=== PATIENT | female | born 1985 | race Caucasian/White ===

== ENCOUNTER 2017-09-07 17:30 | Outpatient (RCR) | payer MEDICAID, SELFPAY ==
--- NOTE | 2017-08-01 14:15 | HP.PTEVAL_ITS ---
Patient's Visit Information GALINA ALCANTAR is a 32 year old F referred to Physical Therapy by Priscilla Mcdonald DPM with a diagnosis of L foot sinus tarsitis, sesmoid injury. Date of Evaluation: 07/28/17 Physical Therapist: Kraig Chiu - Visit Plan Frequency: 2-3x /Week Duration: 6-8 weeks Plan: Start with L ankle strengthening, L ankle ROM/stretching, proprioception exercises. May use US/IFC to modulate pain. - Subjective Subjective: Pt. is here today for her initial evaluation with diagnosis of L foot sinus tarsitis, sesmoid injury and has a history of a hereditary neuropathy disorder. She is a plesant 32 y.o. female who reports having chornic L ankle pain for the past 10+ years. Her symptoms have worse of the last 3-4 years. She is to the point where walking short community distances are causing extreme pain. She reports having pain in both legs, but her L is worse. Pain is indidcated at medial aspect of L ankle and foot and it travels over the anterior aspect of her ankle. Pt. reports decreased sensation throughout bilateral LEs and UEs. Increased pain: walking, standing, all WBing activities. Decreases pain: unloading, rest, and OTC meds. She does reports Once I over do it, I am done for the rest of the day. 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 Pt. reports pain is a burning, tingling pain, but can become sharp. Pt. reports no mechanism of injury, but has had symptoms since being in the . She is limited to walking for brief periods of time secondary to pain , and has difficulty with stairs. Her physician recommended that she get a gauntlet brace for increased ankle stability. Pt. has yet to be fitted. Pt. is hopeful to reduce symptoms in order to get back to all recreatonal activities and taking care of her children with increased tolerance. - Pain L foot/ankle Pain Intensity (Out of 10): 4 Pain Intensity Range: 2, 8 - Objective POSTURE: Pt. has increased pronation during stance phase of bilateral LEs, worsen with increased wt. shifting bilaterally. Pt. has slight increased in bilateral knee valgus positioning as well. PALPATION: Pt. has increased pain with palaption of L navicular, L sesmoid, L 1st metatarsal. Pt. has high level of sensitivity to 1st metatarsal head. Incision from previous bunionectomy. She also has increased callusing at plantar side of 1st met head. Consistent with medial wearing of footwear, L worse than R. NEUROLOGICAL: decreased sensation to light and sharp touch throughout feet to ~2 inches above bilateral malleolei. Pt. reports I was able to walk on glass and not really know it. Pt. has 2+ achilles and patellar DTR bilaterally. Pt. is able to rise on heels and toes without issues or LOB. No visible weakness noted. ROM: L ankle- DF 12deg, PF 45deg, EVR 13deg, INV 18deg. R ankle DF 14deg, PF 49deg, EVR 14deg, INV 18deg. Pt. has normal ROM of bilateral knees and hips no increase in leo noted. MMT- RLE- ankle- DF 4+/5, PF 4+/5, INV 4+/5, EVR 4+/5. Knee- ext 5-/5, flexion 5-/5. HIp- flexion- 4+/5, abd 4/5, ext 4+/5. LLE- ankle 4/5 throughout ; knee- ext 4+/5, flexon 4+/5; hip- flexion 4+/5, abd 4/5, ext 4+/5. Core strength- poor. GAIT: Pt. has increased L pes planus during stance phase. She has increased pronation during heel off and preswing phase. Pt. has normal heel strike. Antalgic pattern noted during L stance phase. No AD needed. Pt. has visible instability noted during L stance phase, 18sec during R single leg stance with increased ankle/hip stratagies to attempt to maintain stability. - Goals Goal 1:: Pt. to be I with HEP. Goal Time Frame: 6-8 Weeks Goal 2:: Pt. to have increased L ankle ROM symmetrical to R side to reduce abnormal stresses to foot with functional mobility. Goal Time Frame: 4-6 Weeks Goal 3:: Pt. to have increased strength of L ankle/foot by 1/2 grade of all effected musculature to increase ankle stability. Goal Time Frame: 6-8 Weeks Goal 4:: Pt. to ambulate 2000ft. with 0-1/10 pain allowing for increased toelrance to all community activities includiong grocery shopping. Goal Time Frame: 6-8 Weeks Goal 5:: Pt. to negotiate steps with 1 HR with reciprocal pattern witho 0-1/10 pain in L ankle allowing for increased mobility in home. Goal Time Frame: 4-6 Weeks - Rehabilitation Potential Physical Therapy Diagnosis: Pt. has signs and symptoms consistent with L foot sinus tarsitis, sesmoid injury. She has increased pes planus during L stance phase, she is over loading her 1st metatarsal head during stance phase and heel off phase of gait. She would benefit from PT to increase L ankle mobility, strength and stability in stance to reduce stress applied to medial aspect of her foot during all functional mobility. Rehabilitation Potential: Fair - Anticipated Interventions Patient/Client Instruction: Educate patient on: Condition, Plan of Care, Risk Factors, Benefits of Fitness Program For the Purpose of:: To improve safety, To improve health and function, To foster healthy habits, To improve decision making, To facilitate caregiver knowledge, To improve self management, To prevent re-injury, To improve ability to perform tasks related to life management, To improve tolerance to ADL's Therapeutic Exercise to Include: Strength training, Power training, Endurance training, Balance training, Postural training, Flexibilty training, Gait and locomotor training, Passive ROM, Active ROM For the Purpose of:: To decrease pain, To decrease swelling/inflammation, To increase ROM, To improve nutrient delivery to tissue, To increase oxygenation perfusion, To improve muscle performance and motor function, To increase tolerance to activity/condition/position, To improve performance and independence with ADL's, To decrease level of supervision to perform tasks, To improve ability of physical actions for home/community/work/leisure, To improve gait and locomotor functions, To improve health of tissue, To decrease soft tissue restriction, To increase flexibility/ROM Manual Therapy Techniques to Include: Mobilization, Manipulation, Passive ROM, Functional dry needling For the Purpose of:: To decrease pain, To increase ROM, To improve nutrient delivery to tissue, To increase oxygenation perfusion, To improve muscle performance and motor function, To improve ability to perform ADL's IF ES: Yes Ultrasound (thermal/non thermal): Yes For the Purpose of:: To decrease pain, To decrease swelling/inflammation, To increase ROM, To improve nutrient delivery to tissue Thank you for the opportunity to evaluate your patient. For Medicare and Medicare HMO plans, please review the plan of care and approve it. It will need to be FAXED BACK to us at [phone] for Medicare purposes. Please let me know if there are questions or concerns regarding this plan of care. Physician Signature: Date:
--- NOTE | 2018-01-24 14:42 | HP.PTDCNRP_ITS ---
HP - Discharge Summary (1) - Patient Information GALINA ALCANTAR was seen in my office for initial evaluation on 07/28/17. The following Plan of Care was established for this patient: Initial Frequency: 2-3x /Week Initial Duration: 6-8 weeks - Anticipated Interventions Patient/Client Instruction: Educate patient on: Condition, Plan of Care, Risk Factors, Benefits of Fitness Program For the Purpose of:: To improve safety, To improve health and function, To foster healthy habits, To improve decision making, To facilitate caregiver knowledge, To improve self management, To prevent re-injury, To improve ability to perform tasks related to life management, To improve tolerance to ADL's Therapeutic Exercise to Include: Strength training, Power training, Endurance training, Balance training, Postural training, Flexibilty training, Gait and locomotor training, Passive ROM, Active ROM For the Purpose of:: To decrease pain, To decrease swelling/inflammation, To increase ROM, To improve nutrient delivery to tissue, To increase oxygenation perfusion, To improve muscle performance and motor function, To increase tolerance to activity/condition/position, To improve performance and independence with ADL's, To decrease level of supervision to perform tasks, To improve ability of physical actions for home/community/work/leisure, To improve gait and locomotor functions, To improve health of tissue, To decrease soft tissue restriction, To increase flexibility/ROM Manual Therapy Techniques to Include: Mobilization, Manipulation, Passive ROM, Functional dry needling For the Purpose of:: To decrease pain, To increase ROM, To improve nutrient delivery to tissue, To increase oxygenation perfusion, To improve muscle performance and motor function, To improve ability to perform ADL's IF ES: Yes Ultrasound (thermal/non thermal): Yes For the Purpose of:: To decrease pain, To decrease swelling/inflammation, To increase ROM, To improve nutrient delivery to tissue This patient was last seen in our office 09/17/18. Pertinent comments regarding their Physical therapy will appear below: Pt. was seen for her sinus tarsi. Pt. was making slight progress with modalities , stretching and strengthening. Pt. stop attendeding appointments and has not been seen in ~4 months. Pt. will be DC from PT at this point in time. At this point I will be discontinuing this patient from physical therapy. I would be happy to see this patient again in the future if found appropriate by the physician. Thank you! Kraig Chiu
== END 2017-09-07 19:00 | disposition home or self-care (01) ==
LOC: PT 17:30
PROVIDERS: Family Provider Family Medicine; PCP Family Medicine; Visit Provider Podiatrist
DX: G57.52 Tarsal tunnel syndrome, left lower limb (principal); S92.902D Unspecified fracture of left foot, subsequent encounter for fracture with routine healing; G60.9 Hereditary and idiopathic neuropathy, unspecified
CPT/HCPCS: 97035 ×3; 97110 ×4; 97162; 97022; 97140

== ENCOUNTER 2018-03-04 14:00 | Outpatient (RCR) | payer MEDICAID, SELFPAY ==
--- NOTE | 2018-03-17 16:06 | HP.PTEVAL_ITS ---
Patient's Visit Information GALINA ALCANTAR is a 32 year old F referred to Physical Therapy by Priscilla Mcdonald DPM with a diagnosis of L sinus tarsitis, LBP, HNPP. Date of Evaluation: 02/04/18 Physical Therapist: Kraig Chiu - Visit Plan Frequency: 2-3x /Week Duration: 6-8 weeks Plan: Progress velocities next. - Subjective Subjective: Pt. is here today for her initial evaluation with diagnosis of left sinus tarsitis, Hereditary neuropathy disorder and low back pain. Pt. reprots having left foot/ankle pain for many years, but is getting worse. Pt. reports increased pain in her foot with walking, standing, stairs, and all functional mobility. Decreased symptoms in her foot with non wbing, but it does not totally go away. Pt. does have a brace for her L ankle, but is not wearing today. Pt. has trialed PT previously, but did not have improved symptoms. Pt. is hopeful to trial aquatic therapy to increase gait progress, ROM, and strength to reduce symptoms. Pt. is also having LBP which started ~ 3-4 months ago with no mechanism of injury. She was planning on seeing a chiropractor for it, but has yet to start. Pt. reprots increased LBP with lifting, bending, twisting, walking, carrying her children. Pt. denies N/T down her legs. Pt. reports difficulty sleeping due to her back pain. Pt. reports nothing really decreases her back pain. Pt. is hopeful to increased LLE pain and back pain allowing for increased tolerance to all ADLs and activities. - Pain Lumbar Spine Pain Intensity (Out of 10): 6 Pain Intensity Range: 3, 7 RLE Pain Intensity (Out of 10): 6 Pain Intensity Range: 1, 4 Comment: hip L foot Pain Intensity (Out of 10): 7 Pain Intensity Range: 6, 8 - Objective POSTURE: Pt. has generalized flexed posture, pes planus bilaterally with minimal longitudinal arch height, L worse than R. Pt. has increased R lateral trunk lean in stance. PALPATION: Pt. had pain to L 1st met head, along medial longitudial arch of L foot and along post tib tendon. Pt. has increased pain at lumbar spine paraspinals and into B piriformis region. NEUROLOGICAL: Pt. has normal senation to light and sharp touch. Pt. has 2+ pedal pulse. Pt. has 2+ achilles and patellar DTR bilateraly. Pt. is able to rise on heels and toes, but reports increased pain while doing so. ROM: LUMBAR SPINE: flexion min loss increase NW, ext mod loss increase NW, SB mod loss increase NW bilat, rotation mod loss increase NW bilat. L ankle- DF 10deg, PF 38deg, INV 10deg, EVR 10deg. Pt. reports increased pain with all OP of motion of L ankle. Pt. has normal hip ROM, HS tightness bilaterally. MMT: R ankle- 5/5 throughout; L ankle 5/5 throughout; R knee- 4+/5 throughout; L knee 4+/5 throughout; R hip- 4/5 throughout; L hip 4/5 throughout. Core strength- poor. GAIT: Pt. ambulates without AD ~300ft. with antalgic pattern during L stance phase. Pt. has generalized flexed posture, L ankle EVR with increased pes planus during L stance phase, marked navicular drop during L stance phase. STAIRS: Pt. is able to negotiate with 2HR with step to pattern. Pt. reports increased LBP and L ankle pain with ascending and descending, descending is worse. - Goals Goal 1:: Pt. to be I with HEP. Goal Time Frame: 4-6 Weeks Goal 2:: Pt. to have increased BLE and core strength by 1/2 grade of all effected musculature. Goal Time Frame: 4-6 Weeks Goal 3:: Pt. to ambulate unlimited distances with 0-3/10 pain in L ankle/foot. Goal Time Frame: 4-6 Weeks Goal 4:: Pt. to ambulate unlimited distances with 0-2/10 LBP allowing for increased tolerance to community mobility. Goal Time Frame: 4-6 Weeks Goal 5:: Pt. to have increased lumbar ROM by 25% in all directions without increase in symptoms. Goal Time Frame: 4-6 Weeks - Rehabilitation Potential Physical Therapy Diagnosis: Pt. has signs and symptoms consistent with L sinus tarsitis, LBP and HNPP. Pt. reports increased pain with all WBing on LLE during gait, txs, stairs that limit her ability to complete more than grocery shopping. Pt. has increased LBP currently without mechanism of injury, without reduction with repeated motions. Pt. has marked BLE and core weakness. Pt. would benefit from Pt in aquatic setting to increase BLE strength, mobility, core strength to allow for increased tolerance to all functional mobility. Rehabilitation Potential: Fair - Anticipated Interventions Patient/Client Instruction: Educate patient on: Condition, Plan of Care, Risk Factors, Benefits of Fitness Program For the Purpose of:: To improve decision making, To facilitate caregiver knowledge, To improve self management, To prevent re-injury, To improve ability to perform tasks related to life management, To improve tolerance to ADL's Therapeutic Exercise to Include: Strength training, Power training, Endurance training, Balance training, Agility training, Body mechanics, Postural training , Flexibilty training, Gait and locomotor training, In an aquatic setting, Dynamic Lumbar Stabilization For the Purpose of:: To decrease pain, To increase ROM, To improve nutrient delivery to tissue, To increase oxygenation perfusion, To improve muscle performance and motor function, To improve ability to perform ADL's, To improve ability of physical actions for home/community/work/leisure, To improve gait and locomotor functions, To improve health of tissue, To decrease soft tissue restriction, To increase flexibility/ROM, To improve endurance, To improve balance, To improve safety with gait Thank you for the opportunity to evaluate your patient. For Medicare and Medicare HMO plans, please review the plan of care and approve it. It will need to be FAXED BACK to us at [phone] for Medicare purposes. Please let me know if there are questions or concerns regarding this plan of care. Physician Signature: Date:
--- NOTE | 2018-07-15 14:12 | HP.PT.NRP ---
HP - Discharge Summary (1) - Patient Information GALINA ALCANTAR was seen in my office for initial evaluation on 02/04/18. The following Plan of Care was established for this patient: Initial Frequency: 2-3x /Week Initial Duration: 6-8 weeks - Anticipated Interventions Patient/Client Instruction: Educate patient on: Condition, Plan of Care, Risk Factors, Benefits of Fitness Program For the Purpose of:: To improve decision making, To facilitate caregiver knowledge, To improve self management, To prevent re-injury, To improve ability to perform tasks related to life management, To improve tolerance to ADL's Therapeutic Exercise to Include: Strength training, Power training, Endurance training, Balance training, Agility training, Body mechanics, Postural training, Flexibilty training, Gait and locomotor training, In an aquatic setting, Dynamic Lumbar Stabilization For the Purpose of:: To decrease pain, To increase ROM, To improve nutrient delivery to tissue, To increase oxygenation perfusion, To improve muscle performance and motor function, To improve ability to perform ADL's, To improve ability of physical actions for home/community/work/leisure, To improve gait and locomotor functions, To improve health of tissue, To decrease soft tissue restriction, To increase flexibility/ROM, To improve endurance, To improve balance, To improve safety with gait This patient was last seen in our office 03/04/18. Pertinent comments regarding their Physical therapy will appear below: Pt. was seen for her L sinus tarsi of her left foot. Pt. was treated in aquatic setting, but did not return to her final visits. Pt. was seen for 2 visits in pool. Pt. has not been seen in ~4 months and will be DC from PT at this point in time. At this point I will be discontinuing this patient from physical therapy. I would be happy to see this patient again in the future if found appropriate by the physician. Thank you! Kraig Chiu
== END 2018-03-04 19:00 | disposition home or self-care (01) ==
LOC: PT 14:00
PROVIDERS: Family Provider Family Medicine; PCP Family Medicine; Visit Provider Podiatrist
DX: M25.572 Pain in left ankle and joints of left foot (principal); G60.0 Hereditary motor and sensory neuropathy; M54.5 Low back pain; M79.606 Pain in leg, unspecified
CPT/HCPCS: 97113; 97163

== ENCOUNTER 2018-04-11 08:43 | Emergency (ER) | payer MEDICAID, SELFPAY ==
[2018-04-11 08:44] VITALS: BP 125/73; PULSE 82; RESP 22; TEMP 36.8; O2SAT 99; BMI 37.7
--- NOTE | 2018-04-11 08:55 | ED.VISSUMM ---
- ER Visit Summary Date of Service: 04/11/18 Chief Complaint: Shortness of breath History of Present Illness: The patient is a 32 F who states that she has a history of asthma. She sees Dr. Ingram for pulmonology. She states that she has albuterol aerosols at home as well as her daily medications including Ventolin Singulair Dulera and sertraline. Patient states that her daughter began to have viral URI symptoms and beginning last evening the patient notes increasing shortness of breath. She was seen at urgent care and given breathing treatments with no significant improvement and sent to the emergency room. Patient does note that she smokes a pipe. Physical Examination: Afebrile vital signs are stable Gen: Well-nourished well-developed Head: Normocephalic atraumatic Eyes: Perrl EOMI ENT: TMs clear no rhinorrhea moist mucous membranes Neck: Supple no lymphadenopathy no JVD nontender CVS: Regular rate rhythm no murmurs normal S1-S2 Respiratory: Patient is tachypneic but has good air movement and expiratory wheeze. Chest nontender Abdomen: Soft nontender nondistended normal bowel sounds no masses Back: Nontender Extremity: Nontender no edema Skin: Normal color no rash Neuro: alert orientated ?3 CN II-XII intact normal strength sensation reflexes gait cerebellar Psych: Anxious Test Results: Chest x-ray negative for infiltrate. Emergency Department Course and Treatment: Received Solu-Medrol and breathing treatments. Her peak flows are improved. Return if worsening follow-up with pulmonology Impression: 1. Acute exacerbation of asthma This note was generated with [employer] dictation software. It may contain incorrect words, spelling, and punctuation that were not noted in review of the chart prior to signing ED Disposition - Plan for ED Patient: Disposition: Home or Assisted Living Chief Complaint: Shortness of Breath Instructions: Discharge Instructions for Asthma Prescriptions: Ipratropium/Albuterol Sulfate [Duoneb] 3 ml INHALATION Q6H.RT #12 ampul.neb RX: Prednisone 60 mg PO DAILY #15 tab Referrals: Lee Luis MD [NON-STAFF] - 3-5 Days if not improving
[2018-04-11 08:59] VITALS: BP 122/71; PULSE 76; RESP 14; O2SAT 98
[2018-04-11] MEDS: Ipratropium/Albuterol Sulfate 3 ML AMPUL.NEB INHALATION (09:06)
[2018-04-11] MEDS: Albuterol 2.5 MG/3 ML VIAL.NEB. INHALATION (09:06)
[2018-04-11 09:07] VITALS: PULSE 86; RESP 20
[2018-04-11] MEDS: MethylPREDNISolone 125 MG/2 ML Vial IV (09:09)
[2018-04-11 09:11] VITALS: O2SAT 98
--- NOTE | 2018-04-11 09:25 | RAD_ITS ---
STUDY: X-RAY CHEST REASON FOR EXAM: Female, 32 years old. Pt. has asthma, cough/cold symptoms, very SOB TECHNIQUE: Frontal and lateral views of the chest. COMPARISON: None. FINDINGS: The lungs are clear and expanded. There is no demonstrated pleural abnormality. Normal size heart. Normal mediastinum and naida. Normal visualized pulmonary arteries. Normal visualized aortic arch and descending thoracic aorta. Normal visualized thoracic spine. Normal visualized ribs, clavicles, and shoulders. There is no demonstrated abnormality of the visualized soft tissue structures of the upper abdomen. RAD/Chest PA and Lateral IMPRESSION: Normal x-ray examination of the chest. Electronically Signed: Diana Bar MD at 10:26 EDT Tel , Service support ,
[2018-04-11 11:43] VITALS: BP 126/78; PULSE 92; RESP 20; O2SAT 99
--- NOTE | 2018-04-12 12:45 | CM.ED ---
ED CALLBACK: Follow-up call to patient. Patient states she is not doing very well. She states she started her prednisone last night and feels it is the only thing helping her. She remarks that she is still miserable and coughing up green sputum. Patient has not checked her temperature but states she is rotating between hot and cold. She states that she is home with two sick children. They have not have fevers. I encouraged her to go ahead and make an appt with plodding operator. Patient states she is unable to schedule with her PCP because she has no one to watch the children. I asked that she check her temperature and if she has a fever to return the the ED. Also return to ED if worsening symptoms. Patient denies questions and states understanding.
== END 2018-04-11 11:43 | disposition home or self-care (01) ==
PROVIDERS: Emergency Provider Emergency Medicine; Family Provider Family Medicine; PCP Family Medicine
DX: J45.901 Unspecified asthma with (acute) exacerbation (principal); F17.290 Nicotine dependence, other tobacco product, uncomplicated; Z79.899 Other long term (current) drug therapy
CPT/HCPCS: 71046; 94640; 96374; 99284; A4216

== ENCOUNTER → 2018-05-11 20:06 | Outpatient (CLI) | payer MEDICAID, SELFPAY | PROVIDERS: Family Provider Family Medicine; PCP Family Medicine; Visit Provider Otolaryngology | DX: G47.30 Sleep apnea, unspecified (principal) | CPT/HCPCS: 95811 ==

== ENCOUNTER 2018-08-14 10:51 | Emergency (ER) | payer MEDICAID, SELFPAY ==
[2018-08-14 10:52] VITALS: BP 138/78; PULSE 76; RESP 18; TEMP 36.6; O2SAT 99; BMI 39.4
[2018-08-14 11:29] LABS: Absolute Neutrophil Count 3.5 X10^3/uL (2.0-7.7); Basophil# 0.03 X10^3/uL; Basophil% 0.5 % (0-1); Eosinophil# 0.36 X10^3/uL; Eosinophils% 6.1 % (0-5); Hematocrit 44.2 % (37-47); Hemoglobin 14.7 g/dl (12.0-15.0); Lymphocyte % 28.9 % (19-41); Mean Corp Hgb Conc 33.3 g/gl (32-36); Mean Corpuscular Hgb 28.8 pg (27.0-32.0); Mean Corpuscular Volume 86.7 fL (81-99); Mean Platelet Vol. 10.9 fl (6.2-12.0); Monocyte# 0.27 X10^3/uL; Monocyte% 4.6 % (0-10); Neutrophil # 3.51 X10^3/uL (2.7-7.7); Neutrophil % 59.7 % (47-70); Platelet Count 246 K/mm3 (150-450); RBC Distribution Width CV 13.1 % (11.6-14.6); RBC Distribution Width SD 41.8 fl (35.1-43.9); White Blood Count 5.9 K/mm3 (4.4-11.0)
[2018-08-14] MEDS: DiphenhydrAMINE 50 MG/ML Syringe 25 MG IV (11:29)
[2018-08-14 11:30] LABS: POSITIVE COUNT NO; POSITIVE DIFFERENTIAL NO; POSITIVE MORPHOLOGY NO
--- NOTE | 2018-08-14 11:35 | ED.DCSUM_ITS ---
- ER Visit Summary Date of Service: 08/14/18 Chief Complaint: Neck pain and tongue numbness History of Present Illness: The patient is a 33 F who presents with neck pain and numbness of her tongue that has been getting worse over the past week. Patient states she was started on CPAP for sleep apnea this week. Patient states she also has a history of hereditary neuropathy with pressure palsies. Patient states she contacted her neurologist who referred her to the emergency department for further evaluation. Patient stated that he was concerned over possible hypertapnia. Patient denies any difficulty swallowing. Does have some shortness of breath. Patient admits to an episode of nausea but denies any vomiting. Patient admits to diffuse paresthesias. Physical Examination: Vital signs are stable. Patient is afebrile. Patient is in no acute distress. Oral mucosa is pink and moist. Oropharynx is clear. Airway is patent. Neck is supple. Trachea is midline. There is no cervical spinal tenderness. There is some mild paraspinal tenderness. There is good range of motion. Heart was regular rate and rhythm. Lungs are clear and equal bilateral. There is good respiratory effort noted. Abdomen is soft. Bowel sounds are normal. There is no tenderness. There is no rebound or guarding noted. Cranial nerves II through XII are intact. There are no focal motor or sensory deficits noted. The remaining physical exam is within normal limits. Test Results: CBC and basic metabolic profile were obtained and were essentially within normal limits. Emergency Department Course and Treatment: Patient was given a dose of Benadryl here. Patient had minimal improvement with this. Patient was instructed to follow-up with her neurologist. This may be a flareup of her HNPP due to the pressure of the CPAP. Patient understood and was agreeable with the plan. All questions were answered. Disposition: Discharged home Impression: Paresthesias This note was generated with [employer] dictation software. It may contain incorrect words, spelling, and punctuation that were not noted in review of the chart prior to signing ED Disposition - Plan for ED Patient: Disposition: Home or Assisted Living Chief Complaint: General Illness Diagnosis: Paresthesias Instructions: ED Paraesthesias Referrals: Oswaldo Ramsey MD [Primary Care Provider] -
--- NOTE | 2018-08-14 11:35 | RAD_ITS ---
STUDY: X-RAY CHEST REASON FOR EXAM: Female, 33 years old. Neck pain. TECHNIQUE: PA and lateral views of the chest. COMPARISON: 11 April 2018 FINDINGS: The lungs are clear and expanded. There is no demonstrated pleural abnormality. Normal size heart. Normal mediastinum and naida. Normal visualized pulmonary arteries. Normal visualized aortic arch and descending thoracic aorta. Normal visualized thoracic spine. Normal visualized ribs, clavicles, and shoulders. There is no demonstrated abnormality of the visualized soft tissue structures of the upper abdomen. RAD/Chest PA and Lateral IMPRESSION: No evidence of acute cardiopulmonary process. Electronically Signed: Alvarado Moore DO at 12:06 EST , Service support ,
[2018-08-14 11:45] LABS: ALB/GLOB Ratio 1.1 RATIO (0.9-2.4); AST(SGOT) 16 U/L (15-37); Alanine Aminotransfer ALT/SGPT 28 U/L (13-56); Albumin, Serum 3.6 g/dL (3.2-5.0); Alkaline Phosphatase 76 U/L (45-117); Anion Gap 9 (5-15); BUN 13 mg/dL (7-18); BUN/Creat Ratio 15.6 RATIO (10-20); Calcium,Total 8.6 mg/dL (8.5-10.1); Chloride 109 mmol/L (98-107); Creatinine, Serum 0.84 mg/dL (0.55-1.02); EST Glomerular Filtration Rate 83 mL/min (>60); Est Glom Filt Rate - Afr Amer 100 mL/min (>60); Estimated Creatinine Clearance 102.05 ml/min; Globulin 3.4 g/dL (2.2-4.2); Glucose 136 mg/dL (74-106); Potassium 3.9 mmol/L (3.5-5.1); Sodium Level 142 mmol/L (136-145)
[2018-08-14] MEDS: Acetaminophen 325 MG Tablet 650 MG PO (12:11)
[2018-08-14 13:10] VITALS: BP 121/67; PULSE 71; RESP 16; O2SAT 97
== END 2018-08-14 13:11 | disposition home or self-care (01) ==
PROVIDERS: Emergency Provider Emergency Medicine; Family Provider Family Medicine; PCP Family Medicine
DX: R20.2 Paresthesia of skin (principal); G60.8 Other hereditary and idiopathic neuropathies; M54.2 Cervicalgia; G47.30 Sleep apnea, unspecified; R11.0 Nausea; J45.909 Unspecified asthma, uncomplicated; F17.290 Nicotine dependence, other tobacco product, uncomplicated; Z79.899 Other long term (current) drug therapy
CPT/HCPCS: 71046; 80053; 85025; 96374; 99284; A4216

== ENCOUNTER 2018-08-21 22:12 | Emergency (ER) | payer MEDICAID, SELFPAY ==
[2018-08-21 22:13] VITALS: BP 123/77; PULSE 82; RESP 18; TEMP 36.1; O2SAT 98; BMI 38.6
--- NOTE | 2018-08-21 22:39 | ED.DCSUM_ITS ---
- ER Visit Summary Date of Service: 08/21/18 Chief Complaint: Right foot laceration History of Present Illness: The patient is a 33 F laceration right foot prior to arrival. Dropped mineral glass out of the fridge cutting her foot. Tetanus unknown however states was 2 years ago. 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 No anticoagulation medicines. Bleeding now controlled. Physical Examination: General: Alert and oriented ?3, no acute distress HEENT: Normocephalic, atraumatic. Moist mucosa membranes Neck: supple, nontender. Cardiovascular: Regular rate and rhythm, no murmurs Respiratory: Normal breath sounds, symmetric, no distress Abdomen: Soft, nontender, nondistended Extremities: Nontender, no edema, pulses intact ?4 Neuro: no focal neurological deficits. Skin: Right foot, 3 cm vertical laceration dorsal lateral foot. Toe extensor intact. No active bleeding. Test Results: [] Emergency Department Course and Treatment: Patient tetanus should have been updated with her last 2 years ago. Laceration repaired using a total 4, 5 oh simple interrupted nylon sutures. Wound care discussed. She has follow-up with her PCP next 10-14 days for reevaluation and suture removal. Treatment Plan: [] Disposition: Discharge Impression: Right foot laceration status post laceration repair This note was generated with [employer] dictation software. It may contain incorrect words, spelling, and punctuation that were not noted in review of the chart prior to signing ED Disposition - Plan for ED Patient: Disposition: Home or Assisted Living Chief Complaint: Laceration Diagnosis: Laceration of right foot Instructions: ED Laceration Foot Referrals: Oswaldo Ramsey MD [Primary Care Provider] - 10-14 Days suture removal
[2018-08-21 23:47] VITALS: RESP 16
--- OUTSIDE RECORDS SUMMARY | 2018-10-15 02:08 | XMS RPT_ITS ---
:1985 Author Organization OHIP Care Team Providers Name Role Phone Priscilla Mcdonald Attending Unavailable Elderbrock, Oswaldo Primary Care Unavailable Priscilla Mcdonald Attending Unavailable Priscilla Mcdonald Referring Unavailable Elderbrock, Oswaldo Primary Care Unavailable Elderbrock, Oswaldo Primary Care Unavailable Anthony Estrella Attending Unavailable Anmol Cisneros Attending Unavailable Elderbrock, Oswaldo Primary Care Unavailable Kev Pretty D.O. Attending Unavailable Elderbrock, Oswaldo Referring Unavailable Elderbrock, Oswaldo Primary Care Unavailable Tate De La Torre Attending Unavailable Elderbrock, Oswaldo Primary Care Unavailable Can Evans Attending Unavailable ANA SCOTT (PA) Attending Unavailable ANA SCOTT (ELLE) Referring Unavailable ANA SCOTT (PA) Attending Unavailable ANA SCOTT (PA) Referring Unavailable ISAC MARQUEZ Attending Unavailable SAEED BECKFORD (CUSTOMER LOGISTICS MANAGER) Attending Unavailable ISAC MARQUEZ Attending Unavailable ISAC MARQUEZ Referring Unavailable ISAC MARQUEZ Referring Unavailable ISAC MARQUEZ Referring Unavailable MARIO ARTEAGA Attending Unavailable SAEED BECKFORD (CUSTOMER LOGISTICS MANAGER) Referring Unavailable DIRK, DEIRDREER D Admitting Unavailable DIRK, CHRISTOPHER D Attending Unavailable DIRK, CHRISTOPHER D Referring Unavailable Oswaldo Ramsey Primary Care Unavailable DIRK CHRISTOPHER D Attending Unavailable UNKNOWN, PCP Referring Unavailable Oswaldo Ramsey Primary Care Unavailable DIRK, CHRISTOPHER D Attending Unavailable Oswaldo Ramsey Primary Care Unavailable PROBLEMS PROBLEMS DATE TYPE CONDITION / CODE ATTENDING STATUS SOURCE 08/24/2018 Admitting [place]esthesia of [place] [facility] [place] [facility] [place] / R20.0(ICD-10) [facility] Repository 08/24/2018 Final diagnosis Anesthesia of skin [facility] [place] (discharge) / R20.0(ICD-10) [facility] Repository 08/19/2018 Active Paresthesia of NA Active [place] skin / Clinic Main R20.2(ICD-10) [place] Repository 08/17/2018 Active Other hereditary MARIO ARTEAGA Active [place] and idiopathic Clinic Main neuropathies / [place] G60.8(ICD-10) Repository 08/01/2018 Active Obstructive sleep MARIO ARTEAGA Active [place] apnea (adult) Clinic Main (pediatric) / [place] G47.33(ICD-10) Repository 08/17/2018 Active Strain of muscle, MARIO ARTEAGA Active [place] fascia and tendon Clinic Main at neck level, [place] initial encounter Repository / S16.1XXA(ICD-10) 08/17/2018 Active Headache / JATINMARIO Villagomez Active [place] R51(ICD-10) Clinic Main [place] Repository 08/17/2018 Active Personal history MARIO ARTEAGA Active [place] of other specified Clinic Main conditions / [place] Z87.898(ICD-10) Repository 08/17/2018 Active Cramp and spasm / NA Active [place] R25.2(ICD-10) Clinic Main [place] Repository 08/17/2018 Active Other specified NA Active [place] abnormal findings Clinic Main of blood chemistry [place] / R79.89(ICD-10) Repository 08/16/2018 Active Chest pain on NA Active Self breathing / Clinic Main R07.1(ICD-10) [place] Repository 08/16/2018 Active Shortness of NA Active [place] breath / Clinic Main R06.02(ICD-10) [place] Repository 07/15/2018 Unknown M25.572 - Pain in Fascione, Priscilla Active [place] left ankle and Community joints of left Hospital foot / Repository M25.572(ICD-10) 12/30/2017 Active Unknown / TYLERANA WOLFE Active [place] UNK(Unknown) ([place]) Clinic Main [place] Repository 08/13/2017 Unknown TARSAL TUNNEL Fascione, 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, LEFT Community LOWER LIMB / Hospital G57.52(ICD-10) Repository 08/13/2017 Unknown UNSP FRACTURE OF Fascione, Priscilla Active [place] LEFT FOOT, SUBS Community FOR FX [facility] HEAL / Repository S92.902D(ICD-10) 08/13/2017 Unknown HEREDITARY AND Fascione, Priscilla Active [place] IDIOPATHIC Community NEUROPATHY, Hospital UNSPECIFIED / Repository G60.9(ICD-10) PROCEDURES PROCEDURES No Procedure Records FoundRESULTS RESULTS NR MRI BRAIN W/WO Observed: 08/24/2018 Status: F Source: [facility] 11:26 AM HOSPITALS REPOSITORY Patient Name: STEPHANIE ALCANTAR STUDY: MRI BRAIN W/WO CONTRAST; 08/24/2018 11:26 am INDICATION: Signs/Symptoms: Face and mouth numbness. COMPARISON: None. ACCESSION NUMBER(S): [id number] ORDERING CLINICIAN: CAMILLE WILSON TECHNIQUE: Multiplanar multisequence MR imaging of brain and posterior fossa region was performed with and without 20 cc MultiHance intravenous contrast administration. FINDINGS: CSF Spaces: The ventricles, sulci and basal cisterns are within normal limits. Parenchyma: There is no diffusion restriction abnormality to suggest acute infarct. There is no focal parenchymal signal abnormality. There is no mass effect or midline shift. There is no focus of abnormal parenchymal enhancement. The cisternal segments of bilateral trigeminal nerves are unremarkable in appearance. There is no associated abnormal postcontrast enhancement. Few nonspecific vascular structures are coursing surrounding the nerve roots within bilateral CP angle cisterns, a nonspecific finding within the range of normal variation. There is no evidence of abnormal enhancement or mass effect in the region of bilateral Meckel's caves. Bilateral cavernous sinus regions demonstrate expected enhancement and caliber. Bilateral internal auditory canals and inner ear structures are unremarkable. There is partially empty sella appearance of the pituitary gland. This is a nonspecific finding and could be seen as an anatomical variant. Similar findings have been described in the setting of benign intracranial hypertension. Correlation with clinical history would be helpful for further interpretation. If clinically warranted of the neurological examination for papilledema may be considered. Paranasal Sinuses and Mastoids: There are small bilateral maxillary sinus polyps versus retention cyst. There is partial opacification of left peripheral mastoid air cells. Mild mucosal thickening is seen within scattered ethmoidal air cells. IMPRESSION: No evidence of acute infarct, intracranial mass or midline shift. Partially empty sella appearance of the pituitary gland.This is a nonspecific finding and could be seen as an anatomical variant. Similar findings have been described in the setting of benign intracranial hypertension. Correlation with clinical history would be helpful for further interpretation. If clinically warranted of the neurological examination for papilledema may be considered. The study was interpreted at [facility]. Electronically signed by: LEN RODRIGUEZ MD EMERGENCY DEPARTMENT Observed: 08/21/2018 Status: F Source: [facility] SUMMARY 11:[address] [facility] REPOSITORY [facility] Medical Records Department [address] [place] [address] Emergency Department Summary 08/21/18 2238 MR#: [id number] Acct: [id number] Name: STEPHANIE ALCANTAR Rep #: [id number] : 1985 33 From: [place] PCP: Oswaldo Ramsey MD Status: REG ER - ER Visit Summary Date of Service: 08/21/18 Chief Complaint: Right foot laceration History of Present Illness: The patient is a 33 F laceration right foot prior to arrival. Dropped mineral glass out of the fridge cutting her foot. Tetanus unknown however states was 2 years ago. 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 No anticoagulation medicines. Bleeding now controlled. Physical Examination: General: Alert and oriented 3, no acute distress HEENT: Normocephalic, atraumatic. Moist mucosa membranes Neck: supple, nontender. Cardiovascular: Regular rate and rhythm, no murmurs Respiratory: Normal breath sounds, symmetric, no distress Abdomen: Soft, nontender, nondistended Extremities: Nontender, no edema, pulses intact 4 Neuro: no focal neurological deficits. Skin: Right foot, 3 cm vertical laceration dorsal lateral foot. Toe extensor intact. No active bleeding. Test Results: [] Emergency Department Course and Treatment: Patient tetanus should have been updated with her last 2 years ago. Laceration repaired using a total 4, 5 oh simple interrupted nylon sutures. Wound care discussed. She has follow-up with her PCP next 10-14 days for reevaluation and suture removal. Treatment Plan: [] Disposition: Discharge Impression: Right foot laceration status post laceration repair This note was generated with [employer] dictation software. It may contain incorrect words, spelling, and punctuation that were not noted in review of the chart prior to signing ED Disposition - Plan for ED Patient: Disposition: Home or Assisted Living Chief Complaint: Laceration Diagnosis: Laceration of right foot Instructions: ED Laceration Foot Referrals: Oswaldo Ramsey MD [Primary Care Provider] - 10-14 Days suture removal What to do if you have Problems For any increased pain, shortness of breath, bleeding, nausea or vomiting, chest pain, or any unexpected problems, contact your Primary Care Provider. Call [facility] ([phone]) or report to the closest Emergency Room. Call 911 if necessary. 08/21/18 9583 <Electronically signed by Can Hopkins> Date Can Hopkins Cosigner Signature (If Indicated): Date CC: Oswaldo Ramsey MD OFFICE VISIT Observed: Status: UNK Source: [facility] (NEURO-NEUROMUSCULAR) 08/20/2018 10:14 AM HOSPITALS REPOSITORY Chief Complaint Face numbness and tingling History of Present Illness Mrs. 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 Briefly, she was diagnosed 10 year s ago in [place], [place], by Dr. Busby. She has had EMG, as well as genetic studies revealing PMP22 deletion. The patient states that she was recently diagnosed with obstructive sleep apnea for which she was prescribed a CPAP mask and machine. She states that the morning after the first night she used her CPAP machine the lower 2/3 of her face became numb. Including the posterior aspect of her tongue and the inside of her mouth. She states that this sensation has persisted since that time. She states that she feels like she has trouble swallowing at times, and had one episode of dysarthria noted by her . No ptosis, double vision, or trouble breathing. The patient has multiple complaints on today's visit. The patient stated two weeks ago that she pulled her neck sleeping in a awkward position, and since that time has developed a bifrontal and occipi grecia pressure headache, worse when she wakes up. Used Aleve and Tylenol for the pain, but quit as not to mask her symptoms. Headache feels much better today. The patient denies any sudden weakness or bow el or bladder changes. She feels tired all the time, which she attributed to her Topamax and thus stopped taking her medication. However, she feels fatigued still and now thinks it was her sleep apnea. The patient states she is having concurrent worsening of her daily paresthesia in her arms and legs. She is having more craps in her legs, as well as one episode where she had abdominal cramps. As well as episodes where she suddenly feels very cold or hot sometimes associated with profuse sweating. She denies any fevers or rigors. The patient has seen multiple doctors in the past 2 weeks. She went to her local ED for facial numbness and swelling, they gave her IV Benadryl, and sent her home with follow up. She saw her PCP, who sh e states could not interpret what her symptoms are attributed to. She saw her telegraph repeater installer the next day who ordered DVT scan for leg cramping, as well as D-dimer and BNP. DVT scan was unremarkable. The D-Dimer was slightly elevated, and so she was scheduled for a CT of her chest. Last night she had an episode of dysarthria and was evaluated at [facility]. At [facility] routine lab work including CBC w/ diff and CM P was unrevealing. She had a CT of her chest that showed small pulmonary nodules but no PE. She was discharged from the ED. 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) Assessed By: Camille Wilson (Neurology); Last Assessed: 18 Aug 2018 Numbness (782.0) (R20.0) Assessed By: Camille Wilson (Neurology); Last Assessed: 18 Aug 2018 Post traumatic stress disorder (PTSD) (309.81) (F43.10) Scoliosis (737.30) (M41.9) Past Medical History History of asthma (V12.69) (Z87.09) Surgical History History of Tonsillectomy With Adenoidectomy Over Age 11 Family History Family history of arthritis (V17.7) (Z82.61) Family history of asthma (V17.5) (Z82.5) Family history of hypertension (V17.49) (Z82.49) Family history of Autism spectrum Family history of asthma (V17.5) (Z82.5) Family history of Hereditary neuropathy with pressure palsies (HNPP) Family history of multiple sclerosis (V17.2) (Z82.0) Social History Current every day smoker (305.1) (F17.200) Marijuana Occasional alcohol use Allergies No Known Drug Allergies Recorded By: Klever Lazcano; 09/06/2017 8:16:53 AM Current Meds Medication NameInstructionReason Albuterol Sulfate 0.63 MG/3ML Inhalation Nebulization SolutionUSE 1 UNIT DOSE IN NEBULIZER EVERY 4 TO 6 HOURS NEEDED. Black Elderberry(Osman-Flower) 575 MG Oral CapsuleTAKE 1 CAPSULE Daily Dulera 200-5 MCG/ACT Inhalation AerosolINHALE 2 PUFFS TWICE DAILY. Montelukast Sodium 10 MG Oral TabletTAKE 1 TABLET DAILY DIRECTED. Sertraline HCl - 50 MG Oral TabletTake 1 tablet daily Ventolin HFA 108 (90 Base) MCG/ACT Inhalation Aerosol SolutionINHALE 1 TO 2 PUFFS EVERY 4 TO 6 HOURS NEEDED. Vitamin D 400 UNIT/ML Oral LiquidUSE DIRECTED Vitals Vital Signs Recorded: 18Aug2018 01:14PM Heart Rate71 Vvnhmemvcut40 Zflffmfw960 Lwgpkdibx01 Height5 ft 10 in Dlxcru058 lb BMI Cevykbwahc21.17 BSA Calculated2.36 Physical Exam Alert and oriented x3 NAD. Pupils 3mm and reactive. Visual liu full to confrontation. EOM full range. No ptosis or nystagmus. Face is symmetric. No droop. Symmetric smile. Strength testing of bilater al temporalis, masseter, and pterygoid muscles were intact. No dysarthria. No aphasia. Tongue midline No fasciculation. Sensation of the face and mouth: Decreased sensation at V2 and V3 compared to V1 o n light touch. Decreased sensation to light touch over bilateral buccal mucosa, and well as posterior portion of the tongue. Pinprick was intact throughout. Decreased sensation to cold at V2 and V3 comp ared to V1. BUE and BLE motor 5/5. Reflexes 0 in bilateral brachial and biceps, and 2+ bilateral patellar and ankle. FTN intact. Patient states that sensation to pinprick and light touch felt 'tingly l eft leg, no clear loss of sensation, but patient states does not feel normal. Dulled sensation to light touch and pinprick in her Right leg compared to left. Vibration sense in both feet decreased at th e level of toes, returns at the ankle. Proprioception intact. Gait intact. Results/Data Sedimentation Rate, Pktzhyyqtgh39Hsi2216 03:21Camille jorge Test NameResultFlagReference Sedimentation Rate, Rdrotnvyqeq02 mm/h0 - 20 TSH WITH REFLEX TO FREE T4 IF [id number] 03:21Camille jorge Test NameResultFlagReference Thyroid Stimulating Hormone, Serum1.62 mIU/LSee Below Reference Range: 0.44 - 3.98 TSH testing is performed using different testing methodology at [facility] than at other [facility]. Direct result comparisons should only be made within the same method. . Patients receiving more than 5 mg/day of biotin may have interference in test results. A sample should be taken no sooner than eight hours after previous dose. Contact [phone] for additional information. Vitamin B12, Jbyqe03Bdz0781 03:21Camille Wilson Test NameResultFlagReference Vitamin B12, Bgazi559 pg/mL211 - 911 Anti Nuclear Antibody (reflexes JOSELIN panel if Positive)18Aug2018 03:21PMCamille Wilson Test NameResultFlagReference Anti Nuclear AntibodyPOSITIVEANEGATIVE Renal Function [id number] 03:21PMCamille Wilson Test NameResultFlagReference Glucose, Serum81 mg/dL74 - 99 Sodium, Mafna182 mmol/L136 - 145 POTASSIUM4.6 mmol/L3.5 - 5.3 Chloride, Ajyhd773 mmol/L98 - 107 Bicarbonate, Serum25 mmol/L21 - 32 Anion Gap, Serum14 mmol/L10 - 20 Blood Urea Nitrogen, Serum13 mg/dL6 - 23 CREATININE0.77 mg/dLSee Below Reference Range: 0.50 - 1.05 GFR Non >60 mL/min/1.73m2>60 GFR >60 mL/min/1.73m2>60 CALCULATIONS OF ESTIMATED GFR ARE PERFORMED USING THE MDRD STUDY EQUATION FOR THE IDMS-TRACEABLE CREATININE METHODS. CLIN CHEM 2007;53:766-72 Calcium, Serum9.9 mg/dL8.6 - 10.6 Phosphorus, Serum4.1 mg/dL2.5 - 4.9 The performance characteristics of phosphorus testing in heparinized plasma have been validated by the individual laboratory site where testing is performed. Testing on heparinized plasma is not approved by the FDA; however, such approval is not necessary. Albumin, Serum4.7 g/dL3.4 - 5.0 Glucose, Serum81 mg/dL74 - 99 Sodium, Axmoc152 mmol/L136 - 145 POTASSIUM4.6 mmol/L3.5 - 5.3 Chloride, Fydfb278 mmol/L98 - 107 Bicarbonate, Serum25 mmol/L21 - 32 Anion Gap, Serum14 mmol/L10 - 20 Blood Urea Nitrogen, Serum13 mg/dL6 - 23 CREATININE0.77 mg/dLSee Below Reference Range: 0.50 - 1.05 GFR Non >60 mL/min/1.73m2>60 GFR >60 mL/min/1.73m2>60 CALCULATIONS OF ESTIMATED GFR ARE PERFORMED USING THE MDRD STUDY EQUATION FOR THE IDMS-TRACEABLE CREATININE METHODS. CLIN CHEM 2007;53:766-72 Calcium, Serum9.9 mg/dL8.6 - 10.6 Phosphorus, Serum4.1 mg/dL2.5 - 4.9 The performance characteristics of phosphorus testing in heparinized plasma have been validated by the individual laboratory site where testing is performed. Testing on heparinized plasma is not approved by the FDA; however, such approval is not necessary. Albumin, Serum4.7 g/dL3.4 - 5.0 No new results to review today. 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) Numbness (782.0) (R20.0) Orders Angiotensin Converting Enzyme, Serum; Specimen Source:Blood (BLD); Status:Active - Retrospective Authorization; Requested for:18Aug2018; Perform:Lab Services - Lab To Draw (Blood Test); Due:16Nov2018; Last Updated By:Camille Wilson; 08/18/2018 2:54:10 PM;Ordered; For:Hereditary neuropathy with pressure palsies (HNPP); Ordered By:Camille Wilson; Anti Nuclear Antibody (reflexes JOSELIN panel if Positive); Specimen Source:Blood (BLD); Status:Resulted - Requires Verification,Retrospective Authorization; Done: 18Aug2018 03:21PM Performed:[facility]; Due:16Nov2018; Last Updated By:Camille Wilson; 08/19/2018 4:25:47 PM;Ordered; For:Hereditary neuropathy with pressure palsies (HNPP); Ordered By:Camille Wilson; Sedimentation Rate, Erythrocyte; Specimen Source:Blood (BLD); Status:Resulted - Requires Verification,Retrospective Authorization; Done: 18Aug2018 03:21PM Performed:[facility]; Due:16Nov2018; Last Updated By:Camille Wilson; 08/18/2018 6:45:21 PM;Ordered; For:Hereditary neuropathy with pressure palsies (HNPP); Ordered By:Camille Wilson; TSH WITH REFLEX TO FREE T4 IF ABNORMAL; Specimen Source:Blood (BLD); Status:Resulted - Requires Verification,Retrospective Authorization; Done: 18Aug2018 03:21PM Performed:[facility]; Due:[id number]; Last Updated By:Camille Wilson; 08/18/2018 7:47:52 PM;Ordered; For:Hereditary neuropathy with pressure palsies (HNPP); Ordered By:Camille Wilson; Vitamin B12, Serum; Specimen Source:Blood (BLD); Status:Resulted - Requires Verification,Retrospective Authorization; Done: 18Aug2018 03:21PM Performed:[facility]; Due:[id number]; Last Updated By:Camille Wilson; 08/18/2018 7:48:10 PM;Ordered; For:Hereditary neuropathy with pressure palsies (HNPP); Ordered By:Camille Wilson; MRI Brain w/wo Contrast; Status:Hold For - Scheduling,Retrospective Authorization; Requested for:18Aug2018; Perform:[facility]; Order Comments:FIESTA protocol. Attention Trigeminal nerve; Due:[id number]; Last Updated By:Camille Wilson; 08/18/2018 2:55:25 PM;Ordered; For :Numbness; Ordered By:Camille Wilson; Radiologist to Determine Optimal Study : Y What are the patient's signs and symptoms? : Face and mouth numbness Renal Function Panel; Specimen Source:Blood (BLD); Status:Resulted - Requires Verification,Retrospective Authorization; Done: 18Aug2018 03:21PM Performed:[facility]; Due:[id number]; Last Updated By:Camille Wilson; 08/18/2018 7:50:31 PM;Ordered; For:Numbness; Ordered By:Camille Wilson; Provider Impressions Mrs. 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 The patient on further history has numbness in her mouth and the posterior aspect of her tongue. Unclear etiology at this time. Likely not related to pressure palsy caused by recent use of CPAP mask at night. Patient reports loss of sen sation of inside her mouth and V2 and V3 distribution of her face, however muscle strength of the muscles of mastication of the trigeminal nerve are intact. Sensory loss reported at the level of the ton lindsay would be involved with cranial nerve 9. Given distribution of her symptoms it is difficult to localize her symptoms to one particular area on the neuraxis. Given the symmetric distribution of symptoms could be a metabolic process Discussed with the patient that we will work her presentation up in a step myrick process, starting with lab work looking of a metabolic cause, and then progressing to MRI of the brain (FIESTA protocol) i f needed. Reassured patient that this her symptom are not typical of multiple sclerosis or stroke, two disease processes that she was worried about. Plan: ESR TSH w/ reflex T4 LUIS MANUEL with relex JOSELIN B12 Serum TRINA RFP MRI Brain with FIESTA protocol pending lab work results Camille Wilson MD Neurology PGY-3 Attending addendum: I agree with the resident's documentation above. Ms. STEPHANIE ALCANTAR is a very challenging case. She reports bilateral, symmetric numbness/tingling involving the face, oral cavity and tongue. This was abru pt in onset and has been static for the last week. In addition to this chief complaint she describes a number of other symptoms including: migratory paresthesias, intermittent dysarthria, trouble initia ting swallowing, lightheadedness, hot/cold flashes, episodes of profuse sweating, etc. There are no objective findings on her neurological examination today. The only abnormalities are subjective sensor y disturbances (including a combination of positive and negative phenomenon). In short, it is impossible to localize her complaints to any specific location within the neuraxis. Given the widespread and symmetric distribution it is possible that this is a metabolic or endocrinological disturbance. She recently initiated nocturnal positive pressure therapy for obstructive sleep apnea. If the settings w ere too high, hypocapnia can result in facial paresthesias. That said, one would expect these affects to be transient and self-limited. I also considered the possibility of local trigeminal nerve injury from the compression of her CPAP mask given her history of HNPP- though this should not affect sensation of the tongue or scalp. It is certainly possible that there is an organic nidus for her visit today. However, there appears to be a significant amount of superimposed anxiety and overlay on examination. In the absence of clear , objective findings we will need to rely on diagnostic testing. We will send blood work today, but may proceed with an MRI scan of the brain with special attention to the brainstem and exiting cranial nerves. If these examinations are unremarkable, the patient will be provided with reassurance and monitored closely. Temo Miranda D.O. Neuromuscular Medicine CODING and DOCUMENTATION DETERMINATION The total appointment today was 40 minutes, and more than 50% of the time was required for counseling and coordinating care, specifically in regards to discussing differential diagnosis, risks and benef its of further evaluation and instructions. Patient Discussion/Summary Please have your blood drawn today. We will call with the results and direct you as to whether or not the brain scan is needed. Please seek medical attention if your symptoms worsen in any way during the interim. Attending Note Attendee Role: Resident Attendee discussed patient with Dr. Miranda Attestation: I saw and evaluated the patient. I personally obtained the gatica and critical portions of the history and physical exam or was physically present for gatica and critical portions performed by [facility] resident. I reviewed the resident's documentation and discussed the patient with the resident. I agree with the resident's medical decision making as documented on the resident's note with the exception/addition of the following: Comments/Additional Findings: Please find my comments in the provider impression section above. Signatures Electronically signed by : Camille Wilson MD; Aug 18 2018 4:02PM EST (Co-author) Electronically signed by : Temo Miranda DO; Aug 20 2018 10:14AM EST (Author) LYME EARLY <=30 Collected: 08/19/2018 Status: F Source: [facility] 4:40 PM [facility] REPOSITORY TYPE CODE TESTS RESULT OUT OF REFERENCE UNITS RANGE LAB LYMGMX Negative Lyme Negative IgG/IgM AB Result Comment: Absence of detectable Borrelia burgdorferi antibodies. A negative result does not exclude the possibility of Borrelia burgdorferi infection. If early Lyme disease is suspected, a second sample should be collected and tested two to four weeks later. Performed By: #### LMERLY #### [facility] [address] [place], [place] [address] SEDIMENTATION RATE, Collected: 08/18/2018 Status: F Source: [facility] ERYTHROCYTE 3:21 PM [facility] REPOSITORY TYPE CODE TESTS RESULT OUT OF REFERENCE UNITS RANGE LAB ESRWS(LOIN 0 - 20 mm/h C) SEDIMENTATION RATE, ERYTHROCYTE 14 Performed By: #### ESRWS #### [facility] [address] [facility] [place] [address] TSH WITH REFLEX TO Collected: 08/18/2018 Status: F Source: [facility] FREE T4 IF ABNORMAL 3:21 PM [facility] REPOSITORY TYPE CODE TESTS RESULT OUT OF RANGE REFERENCE UNITS LAB TSH2(LOINC) 0.44 - 3.98 mIU/L TSH 1.62 Result Comment: TSH testing is performed using different testing methodology at [facility] than at other [facility]. Direct result comparisons should only be made within the same method. . Patients receiving more than 5 mg/day of biotin may have interference in test results. A sample should be taken no sooner than eight hours after previous dose. Contact [phone] for additional information. Performed By: #### THYDS #### [facility] [address] [place] [address] VITAMIN B12 Collected: 08/18/2018 Status: F Source: [facility] 3[facility]21 [facility] REPOSITORY TYPE CODE TESTS RESULT OUT OF REFERENCE UNITS RANGE LAB VTB12(LOINC 211 - 911 pg/mL ) VITAMIN B12 609 Performed By: #### VTB12 #### [facility] [address] [place] [address] RENAL FUNCTION PANEL Collected: 08/18/2018 Status: F Source: [facility] 3:21 PM [facility] REPOSITORY TYPE CODE TESTS RESULT OUT OF REFERENCE UNITS RANGE LAB GLU(LOINC) 74 - 99 mg/dL GLUCOSE 81 LAB SOD(LOINC) 136 - 145 mmol/L SODIUM 140 LAB K(LOINC) 3.5 - 5.3 mmol/L POTASSIUM 4.6 LAB CHLOR(LOIN 98 - 107 mmol/L C) CHLORIDE 106 LAB BIC(LOINC) 21 - 32 mmol/L BICARBONATE 25 LAB ANGAP(LOIN 10 - 20 mmol/L C) ANION GAP 14 LAB UREA(LOINC 6 - 23 mg/dL ) UREA NITROGEN 13 LAB CREA(LOINC 0.50 - 1.05 mg/dL ) CREATININE 0.77 LAB GFRFN(LOIN >60 mL/min/1.7 C) 3m2 GFR-NON AM. >60 LAB GFRAA(LOIN >60 mL/min/1.7 C) 3m2 GFR- AM. >60 Result Comment: CALCULATIONS OF ESTIMATED GFR ARE PERFORMED USING THE MDRD STUDY EQUATION FOR THE IDMS-TRACEABLE CREATININE METHODS. CLIN CHEM 2007;53:766-72 LAB CA(LOINC) 8.6 - 10.6 mg/dL CALCIUM 9.9 LAB PHOS(LOINC) 2.5 - 4.9 mg/dL PHOSPHORUS 4.1 Result Comment: The performance characteristics of phosphorus testing in heparinized plasma have been validated by the individual laboratory site where testing is performed. Testing on heparinized plasma is not approved by the FDA; however, such approval is not necessary. LAB ALB(LOINC) 3.4 - 5.0 g/dL ALBUMIN 4.7 Performed By: #### RENAL #### [facility] [address] [place] [address] LUIS MANUEL WITH REFLEX TO Collected: 08/18/2018 Status: F Source: [facility] JOSELIN 3:21 [facility] REPOSITORY TYPE CODE TESTS RESULT OUT OF RANGE REFERENCE UNITS LAB LUIS MANUEL(LOINC) NEGATIVE Abnormal LUIS MANUEL WITH POSITIVE REFLEX TO JOSELIN Performed By: #### LUIS MANUEL #### [facility] [address] [place] [address] ANGIOTENSIN CONV ENZYME Collected: 08/18/2018 Status: F Source: [facility] 3:21 [facility] REPOSITORY TYPE CODE TESTS RESULT OUT OF REFERENCE UNITS RANGE LAB TRINA(LOINC) 14-82 U/L ANGIOTENSIN CONV ENZYME 62 Performed By: #### TRINA #### [facility] [address] [place], [place] [id number] LUIS MANUEL TITER/JOSELIN PANEL Collected: 08/18/2018 Status: F Source: [facility] [address] [place] [address] REPOSITORY TYPE CODE TESTS RESULT OUT OF REFERENCE UNITS RANGE LAB ANATI(LOIN C) LUIS MANUEL TITER 1:40 LAB ANAPT(LOIN C) LUIS MANUEL PATTERN SPECKLED LAB ASM(LOINC) AI ANTI-SM <0.2 Result Comment: REF VALUES < 1.0 = NEGATIVE >=1.0 = POSITIVE LAB A-HAIR SPRING CUTTER(LOINC) AI ANTI-HAIR SPRING CUTTER 0.2 Result Comment: REF VALUES < 1.0 = NEGATIVE >=1.0 = POSITIVE LAB ASMRN(LOINC) AI ANTI-SM/HAIR SPRING CUTTER <0.2 Result Comment: REF VALUES < 1.0 = NEGATIVE >=1.0 = POSITIVE LAB A-SSA(LOINC) AI ANTI-SSA <0.2 Result Comment: REF VALUES < 1.0 = NEGATIVE >=1.0 = POSITIVE LAB A-SSB(LOINC) AI ANTI-SSB <0.2 Result Comment: REF VALUES < 1.0 = NEGATIVE >=1.0 = POSITIVE LAB A-SCL(LOINC) AI ANTI-SCL-70 <0.2 Result Comment: REF VALUES < 1.0 = NEGATIVE >=1.0 = POSITIVE LAB A-JO1(LOINC) AI ANTI-DEANGELO-1 <0.2 Result Comment: REF VALUES < 1.0 = NEGATIVE >=1.0 = POSITIVE LAB A-CHR(LOINC) AI ANTI-CHROMATIN <0.2 Result Comment: REF VALUES < 1.0 = NEGATIVE >=1.0 = POSITIVE LAB A-CINTHIA(LOINC) AI ANTI-CENTROMERE <0.2 Result Comment: REF VALUES < 1.0 = NEGATIVE >=1.0 = POSITIVE LAB RIBPP(LOINC) AI ANTI-RIBOSOMAL P <0.2 Result Comment: REF VALUES < 1.0 = NEGATIVE >=1.0 = POSITIVE LAB DNADS(LOINC) IU/mL ANTI-DNA [DS] 1.0 Result Comment: REF VALUES NEGATIVE: <= 4 IU/ML EQUIVOCAL: 5- 9 IU/ML POSITIVE: >=10 IU/ML Performed By: #### ENAP2 #### [facility] [address] [place] [address] ED NOTE Observed: 08/18/2018 Status: COMPLETED Source: [place] 12:27 AM [facility] REPOSITORY HNO ID: [id number] Author: Temo Lund Service: Emergency Medicine Author Type: Judicial Clerk and Program Development Specialist Type: ED Notes Filed: 08/18/2018 4:12 PM Note Text: Emergency Services: ED Call Back Questionnaire SERVICE DATE: 08/17/2018 Are you feeling better? Yes Any questions about discharge instructions and follow-up care? No Were you able to make a follow up appointment? Yes Do you have any further questions? No Is there anything that we could have done differently to improve your ED visit? No SIGNATURE: Temo Lund, Medic PATIENT NAME: Stephanie Alcantar DATE: August 18, 2018 TIME: 4:[address] CHEST W IVCON PE Observed: 08/17/2018 Status: F Source: [place] 11:00 PM [facility] REPOSITORY * * *Final Report* * * DATE OF EXAM: Aug 17 2018 11:00PM [facility] 0540 - CT CHEST W IVCON PE / PROCEDURE REASON: PE suspected, intermediate prob, positive D-dimer * * * * Physician Interpretation * * * * EXAMINATION: CHEST CT WITH CONTRAST (PULMONARY EMBOLISM PROTOCOL) CLINICAL HISTORY: PE suspected, intermediate prob, positive D-dimer, Technique: Spiral CT acquisition of the chest from the thoracic inlet to the upper abdomen following IV contrast. MQ: [id number] Contrast: 152 mL Omnipaque [address] Dose-Length Product: 469 mGy*cm CT Dose Reduction Employed: Automated exposure control (AEC) Comparison: None RESULT: Limitations: Motion. Suboptimal contrast opacification of the pulmonary arteries. Evaluation for thromboembolic disease: - Right heart chambers: No thromboembolic disease. - Main pulmonary arteries: No thromboembolic disease. - Lobar pulmonary arteries: No thromboembolic disease. - Segmental pulmonary arteries: Limited exam. No embolism demonstrated. - Subsegmental pulmonary arteries: Limited exam. No embolism demonstrated. Lines, tubes, and devices: None. Lung parenchyma and pleura: Trachea and mainstem bronchi appear patent. Mild bronchial wall thickening. No pleural effusion, pneumothorax, or focal parenchymal consolidation. 3 mm nodule in the right lower lobe (image 152), 4 mm right lower lobe subpleural nodule (image 165) and 2 mm lingular nodule (image 153). 2 mm juxtapleural nodule on axial image 145 in the RIGHT middle lobe. Thoracic inlet, heart, and mediastinum: No adenopathy. LEFT atrial appendage is unremarkable. No pericardial effusion. Heart does not appear enlarged. Aorta and major branch vessels appear patent. SVC appears patent. Esophagus is mildly patulous in areas, mildly distended with air. No definite esophageal wall thickening. Tiny fat-containing hernia along the posterior medial aspect of the RIGHT hemidiaphragm. Bones and soft tissues: No acute or suspicious osseous finding. Upper abdomen: Hepatic steatosis. IMPRESSION: 1. No evidence of pulmonary embolism. 2. No acute CT abnormality. 3. Tiny pulmonary nodules, likely granulomas given the patient's age. If there are risk factors for lung malignancy, a follow-up chest CT could be obtained in 12 months. 4. Additional findings as described. Pile Driving Supervisor: USMAN Transcribe Date/Time: Aug 17 2018 11:03P Dictated by : REZA FROST MD This examination was interpreted and the report reviewed and electronically signed by: ARELY ARAUJO DO on Aug 17 2018 11:40PM EST [id number] PROGRESS Observed: 08/17/2018 Status: COMPLETED Source: [place] 10:42 PM [facility] REPOSITORY HNO ID: [id number] Author: Haja (Ct) Rogers Rush Service: (none) Author Type: Clinical Program Development Specialist Type: Progress Notes Filed: 08/17/2018 10:57 PM Note Text: Radiology Service Progress Note PATIENT NAME: Stephanie Alcantar DATE OF SERVICE: August 17, 2018 TIME: 10:42 PM PATIENT IDENTITY VERIFICATION COMPLETED USING TWO (2) METHODS: Patient confirmed name verbally and ID band matches.. PATIENT GENDER DATA: Female. status: : No status: NO. PATIENT RELEVANT IMPLANT DATA REVIEWED: Yes CONTRAST INDUCED NEPHROPATHY RISK FACTORS: Not applicable CREATININE: Creatinine Date Value Ref Range Status 09/22/2012 1.01 0.70 - 1.40 mg/dL Final eGFR-All Other Races Date Value Ref Range Status 09/22/2012 >60 . Final P.O.C.T. RESULTS: POC done: Yes, See Lab Tab August 17, 2018 RADIOLOGIST NOTIFIED?: No ALLERGIES: Reviewed and unchanged CONTRAST ALLERGY: NO. PERIPHERAL IV ACCESS: Ambulatory: IV type: Existing peripheral IV utilized, Site assessment: Clean,Dry and Intact, Site disposition Left in for next appointment RADIOLOGY DEPARTMENT: CT; Exam(s) Completed: PE Study SIGNED BY: MARCOS Haddad August 17, 2018 10:42 PM ED NOTE Observed: 08/17/2018 Status: COMPLETED Source: [place] 10:22 PM [facility] REPOSITORY HNO ID: [id number] Author: Jennifer (Alex) Helen Service: Emergency Medicine Author Type: Judicial Clerk and Program Development Specialist Type: ED Notes Filed: 08/17/2018 10:22 PM Note Text: Blood work was obtained and sent to the lab for processing. (1-pink, 1-blue, 1-gold, 2-purple, 3-green). CBC AND DIFFERENTIAL Collected: 08/17/2018 Status: F Source: [place] 10:17 PM [facility] REPOSITORY TYPE CODE TESTS RESULT OUT OF REFERENCE UNITS RANGE LAB WBC 3.70-11.00 k/uL WBC High 11.15 LAB RBC 3.90-5.20 m/uL RBC High 5.63 LAB HGB 11.5-15.5 g/dL High Hemoglobin 15.9 LAB HCT 36.0-46.0 % High Hematocrit 48.4 LAB MCV 80.0-100.0 fL MCV 86.0 LAB MCH 26.0-34.0 pG MCH 28.2 LAB MCHC 30.5-36.0 g/dL MCHC 32.9 LAB RDWCV 11.5-15.0 % RDW-CV 13.1 LAB PLTCT 150-400 k/uL Platelet Count 298 LAB MPV 9.0-12.7 fL MPV 11.2 LAB ANEUT % Neut% 73.7 LAB AANEUT 1.45-7.50 k/uL Abs Neut High 8.21 LAB ALYMP % Lymph% 18.9 LAB AALYMP 1.00-4.00 k/uL Abs Lymph 2.11 LAB AMONO % Nuckolls% 4.8 LAB AAMONO <0.87 k/uL Abs Nuckolls 0.54 LAB AEOS % Eosin% 2.2 LAB AAEOS <0.46 k/uL Abs Eosin 0.24 LAB ABASO % Baso% 0.4 LAB AABASO <0.11 k/uL Abs Baso 0.05 LAB AUNRBC 0 /100 WBC NRBCs 0.0 LAB ABNRBC <0.01 k/uL Absolute nRBC <0.01 LAB DTYP DTYPE Auto Diff Performed By: #### CBCDIF, CMP, MG1 #### [facility] [address] [place], [place] [address] COMP METABOLIC PANEL Collected: 08/17/2018 Status: F Source: [place] 10:17 PM [facility] REPOSITORY TYPE CODE TESTS RESULT OUT OF REFERENCE UNITS RANGE LAB TP 6.3-8.0 g/dL Protein, High Total 8.1 LAB ALB 3.9-4.9 g/dL Albumin 4.9 LAB CA 8.5-10.2 mg/dL Calcium, Total 9.5 LAB TBIL 0.2-1.3 mg/dL Bilirubin, Total 0.3 LAB ALKP 34-123 U/L Alkaline Phosphatase 76 LAB AST 13-35 U/L AST 18 LAB GLU 74-99 mg/dL Glucose 91 Result Comment: The [place] Diabetes Association (ADA) provides guidance for cutoff values for fasting glucose and random glucose. The ADA defines fasting as no caloric intake for at least 8 hours. Fas ting plasma glucose results between 100 to 125 mg/dL indicate increased risk for diabetes (prediabetes). Fasting plasma glucose results greater than or equal to 126 mg/dL meet the criteria for diagnosis of diabetes. In the absence of unequivocal hyperglycemia, results should be confirmed by repeat testing. In a patient with classic symptoms of hyperglycemia or hyperglycemic crisis, random plasma glucose results greater than or equal to 200 mg/dL meet the criteria for diagnosis of diabetes. Reference: Standards of Medical Care in Diabetes 2016, [place] Diabetes Association. Diabetes Care. 2016.39(Suppl 1). LAB BUN 7-21 mg/dL BUN 14 LAB CRET 0.58-0.96 mg/dL Creatinine 0.79 LAB NA 136-144 mmol/L Sodium 139 LAB K 3.7-5.1 mmol/L Potassium 4.1 LAB CL 97-105 mmol/L Chloride 102 LAB CO2 22-30 mmol/L CO2 Low 21 LAB AGAP 9-18 mmol/L Anion Gap 16 LAB ALT 7-38 U/L ALT 23 LAB GFRAA eGFR- Amer. >60 LAB GFRNAA . eGFR-All Other Races >60 Result Comment: eGFR (Estimated GFR) Units of measure: mL/min/1.73 meters squared eGFR is derived from the reexpressed MDRD Study equation using the following parameters: serum creatinine, age, gender and race. The creatinine assay has been calibrated to be traceable to IDMS. An eGFR <60 mL/min/1.73m2 for >3 months is consistent with chronic kidney disease. Refer to KDOQI guidelines for clinical interpretation. In patients with unstable renal function, e.g. those with acute kidney injury, the eGFR may not accurately reflect actual GFR. Performed By: #### CBCDIF, CMP, MG1 #### [email or web address] [address] [place] [id number] MAGNESIUM Collected: 08/17/2018 Status: F Source: [place] 10:17 PM [facility] REPOSITORY TYPE CODE TESTS RESULT OUT OF REFERENCE UNITS RANGE LAB MG 1.7-2.3 mg/dL Magnesium 2.2 Performed By: #### CBCDIF, CMP, MG1 #### [facility] [address] [place] [id number] ED PROV NOTE Observed: 08/17/2018 Status: COMPLETED Source: [place] 8:56 PM [facility] REPOSITORY HNO ID: [id number] Author: Mario Arteaga MD Service: Emergency Medicine Author Type: Physician Type: ED Provider Notes Filed: 08/19/2018 8:28 PM Note Text: ED Provider Note Patient Name: Stephanie Alcantar SERVICE DATE: 08/17/18 History Patient presents with: Headache Stephanie Alcantar is a 33 year old female w PMH BERLIN, HNPP, anxiety who presents to the Emergency Department complaining of neck pain and headache. Pt states that her sxs began roughly 2 weeks ago. Pt was recently diagnosed with BERLIN, and per her she would sit up during sleep gasping for breath and then would subsequently slump over sitting up. Pt then started using CPAP roughly 10 days ago, and reports since that time she has had neck pain and tightness, occipital headache, feeling of facial swelling and tingling, numbness to the back of her tongue. She reports nothing makes the sxs better or worse, and they have been present constantly since onset. She was evaluated at [facility] ED, her PCP and by her telegraph repeater installer for the issue who advised she had strained muscles in her neck and the remainder of her sxs were possibly due to CPAP use. She stopped using her CPAP, but states her sxs remained. Pt states she is scheduled to see her neurologist tomorrow, however her sxs were too concerning to her. Pt denies CP, leg pain or swelling, cough, congestion, fever, slurred speech, facial droop, weakness. PAST MEDICAL HISTORY Diagnosis Date - Anxiety and depression - Asthma - IUD (intrauterine device) in place 01/23/14 Mirena - Neuropathy (HCC) - BERLIN (obstructive sleep apnea) Severe, AHI 85 on 05/11/18 [facility] - PTSD (post-traumatic stress disorder) PAST SURGICAL HISTORY Procedure Laterality Date - DEL W/ ANTE/POST CARE x 3 last 05/07/2016 - CORRECTION OF BUNION Left 2012 - TONSILLECTOMY HX FAMILY HISTORY Problem Relation Age of Onset - Hypertension Father - Asthma Mother - Asthma Sister - Asthma Brother Social History Social History Main Topics - Smoking status: Light Tobacco Smoker Packs/day: 0.50 Years: 14.00 Types: Pipe, Cigarettes Start date: 1991 Last attempt to quit: 08/20/2015 - Smokeless tobacco: Never Used Comment: Smokes 1 pipe 4 times per week. 10/01/17 TO - Alcohol use Yes Comment: Rare. None during . - Drug use: No - Sexual activity: Yes ALLERGIES No Known Allergies Review of Systems Constitutional: Positive for chills and fatigue. Negative for appetite change, fever and unexpected weight change. HENT: Negative for congestion, rhinorrhea, sore throat, trouble swallowing and voice change. Eyes: Negative for pain, discharge and redness. Respiratory: Positive for apnea (BERLIN) and shortness of breath. Negative for cough and stridor. Cardiovascular: Negative for chest pain, palpitations and leg swelling. Gastrointestinal: Negative for abdominal pain, nausea and vomiting. Genitourinary: Negative for difficulty urinating, dysuria and hematuria. Musculoskeletal: Positive for arthralgias, myalgias and neck pain. Negative for back pain, gait problem, joint swelling and neck stiffness. Skin: Negative for color change, rash and wound. Allergic/Immunologic: Negative for immunocompromised state. Neurological: Positive for numbness. Negative for dizziness, tremors, syncope, facial asymmetry, speech difficulty, weakness, light-headedness and headaches. Hematological: Negative for adenopathy. Psychiatric/Behavioral: Negative for agitation, confusion and sleep disturbance. The patient is nervous/anxious. Physical Exam BP 113/70 Pulse 69 Temp (Src) 97.2 (Oral) Resp 15 Ht 5' 10 (1.78m) Wt 275 lb (124.7kg) SpO2 97% BMI 39.46 kg/(m2). Physical Exam Constitutional: She is oriented to person, place, and time. Vital signs are normal. She appears well-developed and well-nourished. She is active. Non-toxic appearance. She does not have a sickly appearance. She does not appear ill. No distress. Well appearing female sitting upright in bed in no apparent distress. HENT: Head: Normocephalic and atraumatic. Right Ear: Hearing and external ear normal. Left Ear: Hearing and external ear normal. Nose: Nose normal. Mouth/Throat: Uvula is midline and mucous membranes are normal. Eyes: Conjunctivae and EOM are normal. Right eye exhibits no discharge. Left eye exhibits no discharge. No scleral icterus. Neck: Normal range of motion and full passive range of motion without pain. Neck supple. No JVD present. No spinous process tenderness and no muscular tenderness present. No tracheal deviation present. Cardiovascular: Normal rate, regular rhythm and normal heart sounds. Exam reveals no gallop and no friction rub. No murmur heard. Pulmonary/Chest: Effort normal and breath sounds normal. No stridor. No respiratory distress. She has no decreased breath sounds. She has no wheezes. She has no rhonchi. She has no rales. Abdominal: Soft. Bowel sounds are normal. She exhibits no distension and no mass. There is no tenderness. There is no rebound and no guarding. Musculoskeletal: Normal range of motion. She exhibits no edema or deformity. Neurological: She is alert and oriented to person, place, and time. She has normal strength. No cranial nerve deficit. Coordination and gait normal. GCS eye subscore is 4. GCS verbal subscore is 5. GCS motor subscore is 6. Skin: Skin is warm and dry. No rash noted. No erythema. Psychiatric: She has a normal mood and affect. Her behavior is normal. Thought content normal. Nursing note and vitals reviewed. DECISION SUPPORT - ED (all recorded) Pulmonary Embolism Row Name 08/17/18 2229 PERC Is pretest probability for PE > than 15% 0 Age > 50 0 HR >= 100 0 spO2 on room air < 95% 0 History of prior PE or DVT 0 Recent Trauma or Surgery 0 Hemoptysis? 0 Exogenous Estrogen? 0 Unilateral leg swelling 0 PERC Score = 0 If PERC Score > 0 - The PERC rule is not satisfied and cannot be used to rule out Pulmonary Embolism for this patient No need for further workup, as < 2% chance of PE Wells' Clinical signs and symptoms of DVT ? PE is #1 Diagnosis, or equally likely ? Heart Rate is > 100 ? Immobilization at least 3 days or surgery in the previous 4 weeks ? Previous objectively diagnosed PE or DVT ? Hemoptysis ? Malignancy with treatment within 6 months or palliative ? Wells' Score = ? Diagnostic Testing ED Labs Ordered and Reviewed COMP METABOLIC PANEL - Abnormal; Notable for the following: Result Value Ref Range Protein, Total 8.1 (*) 6.3 - 8.0 g/dL CO2 21 (*) 22 - 30 mmol/L All other components within normal limits CBC + DIFF - Abnormal; Notable for the following: WBC 11.15 (*) 3.70 - 11.00 k/uL RBC 5.63 (*) 3.90 - 5.20 m/uL Hemoglobin 15.9 (*) 11.5 - 15.5 g/dL Hematocrit 48.4 (*) 36.0 - 46.0 % Abs Neut (ANC) 8.21 (*) 1.45 - 7.50 k/uL All other components within normal limits ED BG VENOUS/LAB PANELS - Abnormal; Notable for the following: pCO2, Venous 34.8 (*) 42.0 - 55.0 mmHg pO2, Venous 83.8 (*) 35.0 - 45.0 mmHg Bicarbonate, Venous 20.9 (*) 24.0 - 28.0 mmol/L Oxyhemoglobin, Venous 93.5 (*) 60.0 - 85.0 % All other components within normal limits MAGNESIUM BLD VENOUS BLOOD GAS - ED (POC) CT CHEST W IVCON PE Final Result IMPRESSION: 1. No evidence of pulmonary embolism. 2. No acute CT abnormality. 3. Tiny pulmonary nodules, likely granulomas given the patient's age. If there are risk factors for lung malignancy, a follow- up chest CT could be obtained in 12 months. 4. Additional findings as described. Pile Driving Supervisor: USMAN Transcribe Date/Time: Aug 17 2018 11:03P Dictated by : REZA FROST MD This examination was interpreted and the report reviewed and electronically signed by: ARELY ARAUJO DO on Aug 17 2018 11:40PM EST Procedures ED Course / Clinical Impression Clinical Impressions as of Aug 18 002 Positive D dimer Strain of neck muscle, initial encounter Hereditary neuropathy with pressure palsies (HNPP) BERLIN (obstructive sleep apnea) Occipital headache History of multiple pulmonary nodules Pt remained resting in ED with normal and stable vital signs. CBC showed diffusely elevated WBCs and RBS, likely secondary to hemoconcentration. CMP and mag unremarkable. VBG was drawn and did show some hypocapnia but a normal pH. CT PE was ordered as pt had had elevated d dimer at outpatient appointment. CT was negative for PE, but demonstrated multiple tiny pulmonary nodules. Pt was informed of results. MDM / Disposition / Plan Stephanie Alcantar is a 33 year old female who presented to the ED complaining of neck pain and headache. Patient's labs in ED unremarkable, except for slight hypocapnia with normal pH. CT PE was performed as chart review revealed pt had an elevated d dimer at outpatient appointment yesterday, but it was negative for acute PE other other apparent acute abnormality. At this time, pt's sxs may be due to cervical strain from abnormal sleeping postures, discomfort from CPAP mask wearing, or may be related to pt's hereditary neurological condition which was exacerbated by CPAP usage. Pt has follow-up appointment tomorrow with her neurologist to discuss the issue. Pt stable and appropriate for discharge with follow up at this appointment. Pt was agreeable to plan. The patient was DISCHARGED: Counseled patient regarding lab results AND radiology results AND suspected diagnosis AND need for follow- up. Discharged home with verbal and written instructions. They were instructed to return as needed for persistent or worsening symptoms or any new concerns. Condition at time of disposition: stable SIGNATURE: JAZLYN MENDEZ (Pa) 08/18/18 0024 Attending Note I have personally performed a face to face assessment of the patient and have reviewed the PA/FINISHER SCREWDOWN note. My gatica findings include: 33 yo female presents with 7-10 day h/o numbness of the back of her tongue and a sensation of facial swelling. No focal neurologic deficits on exam. D Dimer was obtained earlier by her telegraph repeater installer and was elevated, therefore CT PE was performed. THis was negative for PE. She otherwise has no acute recent change in her symptomatology and is scheduled to see her Neurologist tomorrow regarding these symptoms. She was discharged in stable condition. Other additions or changes: None Signature: Mario Arteaga MD Date: 08/19/2018 Time: 8:16 PM Mario Arteaga MD 08/19/182027 ED NOTE Observed: 08/17/2018 Status: COMPLETED Source: [place] 6:12 PM [facility] REPOSITORY HNO ID: [id number] Author: Leela Post) KATERINA Looney Service: Emergency Medicine Author Type: Registered Nurse Type: ED Notes Filed: 08/17/2018 6:16 PM Note Text: Pt complaining of TRIPP, and tongue numbness. Pt was prescribed C PAP two weeks, and after using the machine the patient has not felt right. TRIPP and tongue numbness started 2 weeks ago. Does not appear to be in acute distress, speaking in complete sentences. Pt state, her tongue and neck are numb and she has overall weakness. Pt has been seen in the ED for this complaint. LULÚ Observed: 08/17/2018 Status: COMPLETED Source: [place] 12:00 AM [facility] REPOSITORY Telephone (PULMWS) KATHARINESTEPHANIE David ([id number]) 1985 F Date Time Provider Department 08/17/18 ISAC MARQUEZ During your visit today, we recorded the following information about you: Brigida Jasmine FRENCH 08/17/2018 9:45 AM Signed Patient calling for lab results done yesterday and also wanted you to know that she is now having leg cramps and feels overall terrible which is new since she was in the office yesterday. Isac Marquez MD 08/17/2018 10:13 AM Signed Noted. I have seen D-dimer and NT pro BNP results and forwarded them, with recommendations for additional testing, directly to the pateint this AM via [employer] message. Orders attached for STAT CTA chest, creatinine, venous US legs to R/O PE and DVT, forwarded to schedulers. Further recommendations to follow these results. Isac Marquez MD, [facility] [address] [place] [address] P: [phone] F: [phone] [email or web address] Brigida Ferraro LPN 08/17/2018 11:29 AM Signed Patient calling to schedule testing that was mentioned in my chart message. Please call her to schedule. Antoinette Payan Psr 08/17/2018 11:41 AM Signed Patient is scheduled 08/17/[address] on 08/18/2018.Antoinette Payan Psr Allergies As of Date: 08/17/2018 (No Known Allergies) Date Reviewed: 08/16/2018 Reviewed by: Isac Marquez - Fully Assessed Reason for Visit: Results [95] Primary Visit Diagnosis:Chest pain on breathing [R07.1] Other Visit Diagnoses:Leg cramps [R25.2] Elevated d-dimer [R79.89] Order(s):US LEG VEIN DVT [facility] [[id number]] Order #: [id number] FUTURE CT CHEST W IVCON PE [[id number]] Order #: [id number] FUTURE iv contrast (will be provided with radiology test)CT Chest PE -Inject, intravenously, once for 1 dose.No IV access, insert saline lock prior to the beginning of sedation, infusion, injection of imaging exam. Discontinue saline lock post exam. If Pt. has a central line or IVAD, may access for administration according to line specific nursing protocol. Once exam is complete flush line and de-access according to line specific nursing protocol in the CT contrast administration guidelines link.Disp: 1 EachRfl: 0 Prescriptions as of 08/17/2018 Sig: IV CONTRAST (RADIOLOGY PROCED* CT Chest PE -Inject, intraven* COMPOUNDED PRESCRIPTION AutoPAP 15-20, heated humidif* VENTOLIN HFA 90 MCG/ACTUATION* inhale 2 puffs every 4 hours * DULERA 200 MCG-5 MCG/ACTUATIO* inhale 2 puffs by mouth twice* MONTELUKAST 10 MG TABLET take 1 tablet by mouth at bed* CETIRIZINE 10 MG TABLET Take 1 tablet by mouth once d* SERTRALINE 50 MG TABLET Take 1 tablet by mouth once d* COMPOUNDED PRESCRIPTION NEBULIZER FOR HOME USE, AND S* IPRATROPIUM-ALBUTEROL 0.5 MG-* inhale contents of 1 vial jeannie* * ALBUTEROL SULFATE 2.5 MG/3 ML* Problem List As Of Date 08/17/2018 Noted Resolved Functional dyspareunia [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 Prescriptions ordered this encounter Disp Refills Start End IV CONTRAST (RADIOLOGY PROCEDURE) 1 Ea* 0 08/17/2018 08/18/2018 Class: In Office Sig: CT Chest PE -Inject, intravenously, once for 1 dose.No IV access, insert saline lock prior to the beginning of sedation, infusion, injection of imaging exam. Discontinue saline lock post exam. If Pt. has a central line or IVAD, may access for administration according to line specific nursing protocol. Once exam is complete flush line and de-access according to line specific nursing protocol in the CT contrast administration guidelines link. Encounter Status:Closed by ISAC MARQUEZ MD on 08/17/18 D DIMER Collected: 08/16/2018 Status: F Source: [place] 3:18 PM [facility] REPOSITORY TYPE CODE TESTS RESULT OUT OF REFERENCE UNITS RANGE LAB DDMER <500 ng/mL FEU High D dimer 720 Result Comment: The D-dimer assay can be used to exclude pulmonary embolism (PE) and deep vein thrombosis (DVT) in conjunction with a low pre-test probability. For patients with a suspected DVT, a D Dimer level below 500 ng/mL FEU has a negative predictive value of >=99.0%, a sensitivity of >=97.0%, and a specificity of >=35.8%. For patients with a sanchez spected PE, a D Dimer level below 500 ng/mL FEU has a negative predictive value of >=98.6%, a sensitivity of >=96.6%, and a specificity of >=38.9%. Performed By: #### DDMER, NTBNP #### [facility] [address], [place] [address] NT PRO BNP Collected: 08/16/2018 Status: F Source: [place] 3:18 PM [facility] REPOSITORY TYPE CODE TESTS RESULT OUT OF REFERENCE UNITS RANGE LAB PBNP <125 pg/mL PRO B Natr <50 Peptide Performed By: #### DDMER, NTBNP #### [facility] [email or web address] [address] [place], [place] [address] PROGRESS Observed: 08/16/2018 Status: COMPLETED Source: [place] 2:37 PM [facility] REPOSITORY HNO ID: [id number] Author: Isac Marquez Service: (none) Author Type: Physician Type: Progress Notes Filed: 08/16/2018 4:34 PM Note Text: [facility], 08/16/2018 INTERVAL HISTORY: Reports neck stiffness and tongue numbness since using CPAP, and has been seen at [facility] ED and yesterday at [facility] yesterday for these complaints. Has stopped PAP pending evaluation. Reports reviewed, and symptoms same as in those notes. Symptoms include chest heaviness, numbness and tingling of tongue and face, weakness and dizziness, sense of impending doom. I'm afraid something bad is happening. Spoke to Neurologist, who raised question of Hypocapnea, which patient has since searched online. Allergies reviewed and updated, and medications reconciled today. ROS Reviewed with patient, confirmed as documented by Opal Haskins LPN. TO PHYSICAL EXAMINATION: BP 132/80 Pulse 88 Resp 15 Wt 272 lb (123.4kg) SpO2 98% at rest on room air. Patient is accompanied by 2 minor children, and room smells of feces. Gen: No acute distress. Cooperative with examination. ENT: Sclerae clear. Nares clear. Oral hygeine/dentition fair. Pharynx clear, though tip of uvula not visible. No halitosis. Resp: No stridor, accessory respiratory muscle use, supra- sternal or intercostal retractions. A-P diameter normal. No crackles, wheezes, rubs. CV: Regular rythm. Heart tones normal. Unable to visualize JVP, HJR. No carotid bruit. Radial pulses normal. Abd: Obese, not distended. MSK: No kyphoscoliosis, joint deformities of the extremities. Ext: Warm and well perfused. No clubbing, cyanosis, edema, sclerodactyly, Raynaud's. Skin: Color normal. Texture normal. No rash, eczema, urticaria. Lymph: Unable to appreciate adenopathy in neck, supra-clavicular fossae. Endo: Unable to appreciate goiter. No exophthalmos, onycholysis. Neuro: Mental status normal. Affect anxious. Muscle strength symmetrical. No tremor. DATA REVIEW: Split-night sleep study, [facility] 05/11/2018 AHI 85.1, minimum SPO2 82%, and on CPAP 15 AHI 5, minimum SPO2 90%, on CPAP 17 AHI 0.6, minimum SPO2 95%. IMPRESSION AND RECOMMENDATIONS: 1. Obstructive sleep apnea. - Although I believe the symptoms described by patient represent panic attack and hyperventilation syndrome and have nothing to do with her CPAP/AutoPAP Rx, I have advised her to not use PAP until lab results are in. - D-dimer to screen for pulmonary embolism (Still in process 4:21 PM 08/16/2018). - NT pro BNP to screen for CHF, as she describes inability to breathe when supine. (Still in process 4:21 PM 08/16/2018). Further recommendations to follow these results. If unable to tolerate PAP Rx, may consider consult with Matheus Fontanez DMD, [facility] to evaluate for BERLIN Rx with dental appliance. 2. Severe persistent asthma. Symptomatically well controlled on current Rx. - Continue current Rx. I addressed the questions of the patient, and she expressed understanding and acceptance of my answers. Isac Marquez MD, [facility] [address] [address] P: [phone] F: [phone] [email or web address] CNOV Observed: 08/16/2018 Status: COMPLETED Source: [place] 2:30 PM [facility] REPOSITORY Office Visit (PULMWS) STEPHANIE ALCANTAR ([id number]) 1985 F Date Time Provider Department 08/16/18 2:30 PM ISAC MARQUEZ During your visit today, we recorded the following information about you: Pulse Respiration Blood pressure Weight 88/minute 15/minute 132/80 123.4 kg Opal Haskins LPN 08/16/2018 2:40 PM Attested Addendum Attestation signed by Isac Marquez at 08/16/2018 2:41 PM Reviewed with patient, confirmed as documented by Opal Haskins LPN. TO ROS: General: Generally feels fatigued. Appetite good. Eyes, Ears, nose, throat: denies post nasal drip. denies rhinorrhea. denies purulent nasal discharge. denies epistaxis. denies hoarseness. Vision stable. Cardiac: denies angina, denies edema, notes orthopnea. GI: denies heartburn. notes dysphagia. denies diarrhea. 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 denies hesitancy. denies nocturia. Menses: IUD amenorrhea Musculoskeletal: denies pain. Neuro: C/O headache, tongue weakness, dizziness. Denies tremor. Skin: denies rash. Otherwise negative. Attestation signed by Isac Marquez at 08/16/2018 2:40 PM to a previous version Reviewed with patient, confirmed as documented by Opal Haskins LPN. TO Isac Marquez MD 08/16/2018 4:34 PM Signed [facility] [place], 08/16/2018 INTERVAL HISTORY: Reports neck stiffness and tongue numbness since using CPAP, and has been seen at [facility] ED and yesterday at [facility] yesterday for these complaints. Has stopped PAP pending evaluation. Reports reviewed, and symptoms same as in those notes. Symptoms include chest heaviness, numbness and tingling of tongue and face, weakness and dizziness, sense of impending doom. I'm afraid something bad is happening. Spoke to Neurologist, who raised question of Hypocapnea, which patient has since searched online. Allergies reviewed and updated, and medications reconciled today. ROS Reviewed with patient, confirmed as documented by Opal Haskins LPN. TO PHYSICAL EXAMINATION: BP 132/80 Pulse 88 Resp 15 Wt 272 lb (123.4kg) SpO2 98% at rest on room air. Patient is accompanied by 2 minor children, and room smells of feces. Gen: No acute distress. Cooperative with examination. ENT: Sclerae clear. Nares clear. Oral hygeine/dentition fair. Pharynx clear, though tip of uvula not visible. No halitosis. Resp: No stridor, accessory respiratory muscle use, supra- sternal or intercostal retractions. A-P diameter normal. No crackles, wheezes, rubs. CV: Regular rythm. Heart tones normal. Unable to visualize JVP, HJR. No carotid bruit. Radial pulses normal. Abd: Obese, not distended. MSK: No kyphoscoliosis, joint deformities of the extremities. Ext: Warm and well perfused. No clubbing, cyanosis, edema, sclerodactyly, Raynaud's. Skin: Color normal. Texture normal. No rash, eczema, urticaria. Lymph: Unable to appreciate adenopathy in neck, supra-clavicular fossae. Endo: Unable to appreciate goiter. No exophthalmos, onycholysis. Neuro: Mental status normal. Affect anxious. Muscle strength symmetrical. No tremor. DATA REVIEW: Split-night sleep study, [facility] 05/11/2018 AHI 85.1, minimum SPO2 82%, and on CPAP 15 AHI 5, minimum SPO2 90%, on CPAP 17 AHI 0.6, minimum SPO2 95%. IMPRESSION AND RECOMMENDATIONS: 1. Obstructive sleep apnea. - Although I believe the symptoms described by patient represent panic attack and hyperventilation syndrome and have nothing to do with her CPAP/AutoPAP Rx, I have advised her to not use PAP until lab results are in. - D-dimer to screen for pulmonary embolism (Still in process 4:21 PM 08/16/2018). - NT pro BNP to screen for CHF, as she describes inability to breathe when supine. (Still in process 4:21 PM 08/16/2018). Further recommendations to follow these results. If unable to tolerate PAP Rx, may consider consult with Matheus Fontanez DMD, [facility] to evaluate for BERLIN Rx with dental appliance. 2. Severe persistent asthma. Symptomatically well controlled on current Rx. - Continue current Rx. I addressed the questions of the patient, and she expressed understanding and acceptance of my answers. Isac Marquez MD, [facility] [address] [address] P: [phone] F: [phone] [email or web address] Isac Marquez MD 08/16/2018 2:57 PM Signed I am not certain your symptoms are directly related to the CPAP, though they might be. To screen for serious pulmonary embolism (blood clots in lungsd) and congestive heart failure (fluid congestion in chest) we will draw D-dimer and NT pro BNP today. Further recommendations to follow these results. Isac Marquez MD, [facility] [address] [address] P: [phone] F: [phone] [email or web address] Referring Provider: ISAC MARQUEZ [[id number]] Allergies As of Date: 08/16/2018 (No Known Allergies) Date Reviewed: 08/16/2018 Reviewed by: Isac Marquez - Fully Assessed Reason for Visit: Established Patient [175] Cmt: BERLIN Primary Visit Diagnosis:BERLIN (obstructive sleep apnea) [G47.33] Other Visit Diagnoses:Severe persistent asthma without complication [J45.50] Chest pain on breathing [R07.1] SOB (shortness of breath) [R06.02] Order(s):D-DIMER [SQDDMER] Order #: [id number] FUTURE NT PRO BNP [SQNTBNP] Order #: [id number] FUTURE Prescriptions as of 08/16/2018 Sig: COMPOUNDED PRESCRIPTION AutoPAP 15-20, heated humidif* VENTOLIN HFA 90 MCG/ACTUATION* inhale 2 puffs every 4 hours * DULERA 200 MCG-5 MCG/ACTUATIO* inhale 2 puffs by mouth twice* MONTELUKAST 10 MG TABLET take 1 tablet by mouth at bed* CETIRIZINE 10 MG TABLET Take 1 tablet by mouth once d* SERTRALINE 50 MG TABLET Take 1 tablet by mouth once d* COMPOUNDED PRESCRIPTION NEBULIZER FOR HOME USE, AND S* IPRATROPIUM-ALBUTEROL 0.5 MG-* inhale contents of 1 vial jeannie* * ALBUTEROL SULFATE 2.5 MG/3 ML* Problem List As Of Date 08/16/2018 Noted Resolved Functional dyspareunia [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 Notes for Staff Call patient with results Other instructions from your clinician: I am not certain your symptoms are directly related to the CPAP, though they might be. To screen for serious pulmonary embolism (blood clots in lungsd) and congestive heart failure (fluid congestion in chest) we will draw D-dimer and NT pro BNP today. Further recommendations to follow these results. Isac Marquez MD, [facility] [address] [place] [address] P: [phone] F: [phone] Visit Notes: >> Opal Haskins LPKimberly Moralez Aug 16, 2018 2:28 PM Status: Attested Addendum ROS: General: Generally feels fatigued. Appetite good. Eyes, Ears, nose, throat: denies post nasal drip. denies rhinorrhea. denies purulent nasal discharge. denies epistaxis. denies hoarseness. Vision stable. Cardiac: denies angina, denies edema, notes orthopnea. GI: denies heartburn. notes dysphagia. denies diarrhea. 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 denies hesitancy. denies nocturia. Menses: IUD amenorrhea Musculoskeletal: denies pain. Neuro: C/O headache, tongue weakness, dizziness. Denies tremor. Skin: denies rash. Otherwise negative. Follow Up: Call patient with results Follow-up and Disposition History Recorded Encounter Status:Closed by ISAC MARQUEZ MD on 08/16/18 CNOV Observed: 08/15/2018 Status: COMPLETED Source: [place] 2:20 PM [facility] REPOSITORY Office Visit (FAMPWS) STEPHANIE ALCANTAR ([id number]) 1985 F Date Time Provider Department 08/15/18 2:20 PM [facility] ([facility]) FAMPWS During your visit today, we recorded the following information about you: Temperature Pulse Blood pressure Weight 97.2 degrees 68/minute 128/76 123.4 kg Saeed Beckford APRN.CNP 08/15/2018 2:36 PM Signed Chief Complaint Patient presents with: ED Follow-up HPI Stephanie Alcantar is a 33 year old female who presents here today for Above Complaints.. Patient presents to the office for ER follow-up. She went to [facility] on 08/14/2018. Chief complaint was neck pain and tongue numbness. She presented to the ER with tongue numbness and neck pain present for 1 week and getting worse. She noted that she had started on a CPAP for sleep apnea earlier in the week. 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 her physical exam was normal. Her chest x-ray, CBC, CMP were all unremarkable with the exception of her CMP which showed a glucose of 136. She was given a single dose of Benadryl with minimal improvement to her symptoms. She was instructed to follow-up with her neurologist. Location of neck pain is the left side. States that she has been to the chiropractor for this finding. She states that she had been having instances of sitting up in bed during sleep and waking up in compromising positions. States that after the first night of using the CPAP, she started to have tongue numbness (back of tongue), feelings of her tingling of her head. No slurring of her speech. some intermittent lightheadedness. No double vision, no changes in her gait. No fevers, no chills. No chest pain, shortness breath. No acute confusion. no syncope. States that she is waiting on a call from neurology today, sees a neurologist within [facility]. They stated they were going to work her in the coming days to get her seen. Past medical history, appointments, medications, allergies reviewed. Previous Medical History PAST MEDICAL HISTORY Diagnosis Date - Anxiety and depression - Asthma - IUD (intrauterine device) in place 01/23/14 Mirena - Neuropathy (HCC) - BERLIN (obstructive sleep apnea) Severe, AHI 85 on 05/11/18 [facility] - PTSD (post-traumatic stress disorder) Previous Surgical History PAST SURGICAL HISTORY Procedure Laterality Date - DEL W/ ANTE/POST CARE x 3 last 05/07/2016 - CORRECTION OF BUNION Left 2012 - TONSILLECTOMY HX Family History FAMILY HISTORY Problem Relation Age of Onset - Hypertension Father - Asthma Mother - Asthma Sister - Asthma Brother Patient Allergies ALLERGIES No Known Allergies Current Medications Current Outpatient Prescriptions on File Prior to Visit: COMPOUNDED PRESCRIPTION AutoPAP 15-20, heated humidification, nasal mask, EPR 3. Replace mask, tubing every 6 months. VENTOLIN HFA 90 mcg/actuation inhaler inhale 2 puffs every 4 hours if needed DULERA 200-5 mcg/actuation inhaler inhale 2 puffs by mouth twice a day montelukast (SINGULAIR) 10 mg tablet take 1 tablet by mouth at bedtime cetirizine (ZYRTEC) 10 mg tablet Take 1 tablet by mouth once daily. sertraline (ZOLOFT) 50 mg tablet Take 1 tablet by mouth once daily. Nebulizer NEBULIZER FOR HOME USE, AND SUPPLIES. DX: J45.909Use as directed ipratropium-albuterol (DUONEB) 0.5 mg-3 mg(2.5 mg base)/3 mL nebu inhale contents of 1 vial every 6 hours in nebulizer if needed for wheezing ALBUTEROL 2.5 mg /3 mL (0.083 %) nebulizer solution No current facility-administered medications on file prior to visit. Social History Social History Marital status: Spouse name: Years of education: Number of children: Social History Main Topics Smoking status: Light Tobacco Smoker Packs/day: 0.50 Years: 14.00 Types: Pipe, Cigarettes Start date: 1991 Last attempt to quit: 08/20/2015 Smokeless tobacco: Never Used Comment: Smokes 1 pipe 4 times per week. 10/01/17 TO Alcohol use: Yes Comment: Rare. None during . Drug use: No Sexual activity: Yes REVIEW OF SYSTEMS: as above ? Reviewed relevant PMHx, PSHx, Social Hx, current medications and allergies. EXAM: BP 128/76 Pulse 68 Temp 36.2 ?C (97.2 ?F) (Tympanic) Wt 123.4 kg (272 lb) BMI 38.48 kg/m? General Appearance: Well appearing, alert, in no acute distress, well-hydrated, well nourished. and Overweight. Head: Normocephalic, no masses, lesions, tenderness or abnormalities. Eyes: Anicteric sclera. Pupils are equally round and reactive to light. Extraocular movements are intact. . Ears: External ears normal, canals clear. Nose/Sinuses: Nares normal, septum midline, mucosa normal, no drainage or sinus tenderness. Oropharynx: Lips, mucosa, and tongue normal, teeth and gums normal, oropharynx normal. Neck: Supple, no adenopathy; thyroid symmetric, normal size. Lungs: lungs clear to auscultation. No wheezing, rhonchi, rales. Heart: RRR without murmur, gallop, or rubs. No ectopy. Extremities: No deformities, edema. M/S: Mild tenderness of the left upper trapezius muscle, posterior scalene muscle. Neurologic: Gait normal. +2/4 patellar reflexes normal and symmetric. Sensation grossly intact; tongue is midline, smile is symmetrical, finger to nose exercise is normal, Romberg negative, heel to martins testing is normal, no pronator drift. She states that her bilateral cheeks are equal and light touch, scalp is equal to light touch Lymph Nodes: No cervical lymphadenopathy and No supraclavicular lymphadenopathy. Health Maintenance List ANNUAL PCP TEAM CHRONIC DISEASE VISIT due on 2002 DTAP,TDAP,TD(1 - Tdap) due on 2003 INFLUENZA(1) due on 05/21/2018 STEROID INHALER PRESCRIBED due on 08/20/2018 STEROID INHALER ADHERENCE due on 08/20/2018 PAP EVERY 5 YEARS due on 04/16/2022 HPV EVERY 5 YEARS due on 04/16/2022 ONE PNEUMOVAX PRIOR TO AGE 65 Completed Data reviewed [facility] ER discharge summary reviewed, chest x-ray unremarkable, CBC unremarkable, CMP unremarkable with the exception of glucose 136 ASSESSMENT/PLAN: 1. Strain of neck muscle, subsequent encounter - ICD9: V58.89, 847.0, ICD10: S16.1XXD (primary diagnosis) - Advised use of Advil, TENS unit, before meals for comfort. Can continue chiropractor use. 2. Paresthesias - ICD9: 782.0, ICD10: R20.2 - Of just the back of the tongue, top of scalp, face cheeks. No signs of stroke. All of these symptoms started with first use of CPAP. Physical exam was normal. 3. 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 I would recommend use of Advil, heat pack on your neck. Continue with plan to see your neurologist this week. If you develop, slurring of speech, facial droop, tongue is not midline, you would need to go to the ER for this problem. Saeed Beckford APRN.WELLINGTON' Referring Provider: SELF [200] Allergies As of Date: 08/15/2018 (No Known Allergies) Date Reviewed: 08/15/2018 Reviewed by: Saeed (Wellington) Alvaro - Fully Assessed Reason for Visit: ED Follow-up [821] Primary Visit Diagnosis:Strain of neck muscle, subsequent encounter [S16.1XXD] Other Visit Diagnoses:Paresthesias [R20.2] HNPP (hereditary neuropathy with predisposition to pressure palsy) [G60.8] Prescriptions as of 08/15/2018 Sig: COMPOUNDED PRESCRIPTION AutoPAP 15-20, heated humidif* VENTOLIN HFA 90 MCG/ACTUATION* inhale 2 puffs every 4 hours * DULERA 200 MCG-5 MCG/ACTUATIO* inhale 2 puffs by mouth twice* MONTELUKAST 10 MG TABLET take 1 tablet by mouth at bed* CETIRIZINE 10 MG TABLET Take 1 tablet by mouth once d* SERTRALINE 50 MG TABLET Take 1 tablet by mouth once d* COMPOUNDED PRESCRIPTION NEBULIZER FOR HOME USE, AND S* IPRATROPIUM-ALBUTEROL 0.5 MG-* inhale contents of 1 vial jeannie* * ALBUTEROL SULFATE 2.5 MG/3 ML* Problem List As Of Date 08/15/2018 Noted Resolved Functional dyspareunia [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 Other instructions from your clinician: Likely you have a neck strain on the left side. I would recommend use of Advil, heat pack on your neck. Continue with plan to see your neurologist this week. If you develop, slurring of speech, facial droop, tongue is not midline, you would need to go to the ER for this problem. Saeed Beckford, VIDEO SURVEILLANCE TECHNICIAN.WELLINGTON' Medications Discontinued During This Encounter azithromycin (ZITHROMAX Z-CHAO) 250 m* 6 ta* 0 04/14/2018 08/15/2018 Sig: TAKE 2 TABS ON THE FIRST DAY, THEN ONE TAB DAILY FOR 4 DAYS. Patient not taking: Reported on 08/01/2018 Disc: Course of therapy completed predniSONE (DELTASONE) 10 mg tablet 30 t* 0 04/14/2018 08/15/2018 Si tablets daily for 3 days, 3 tablets daily for 3 days, 2 tablets daily for 3 days, 1 tablet daily for 3 days. Disc: Course of therapy completed Disposition: Return if symptoms worsen or fail to improve. Follow-up and Disposition History Recorded Encounter Status:Closed by SAEED BECKFORD CNP on 08/15/18 PROGRESS Observed: 08/15/2018 Status: COMPLETED Source: [place] 2:08 PM [facility] [place] REPOSITORY HNO ID: [id number] Author: Saeed Beckford Service: (none) Author Type: Nurse Practitioner Type: Progress Notes Filed: 08/15/2018 2:36 PM Note Text: Chief Complaint Patient presents with: ED Follow-up HPI Stephanie Alcantar is a 33 year old female who presents here today for Above Complaints.. Patient presents to the office for ER follow-up. She went to [facility] on 08/14/2018. Chief complaint was neck pain and tongue numbness. She presented to the ER with tongue numbness and neck pain present for 1 week and getting worse. She noted that she had started on a CPAP for sleep apnea earlier in the week. 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 her physical exam was normal. Her chest x-ray, CBC, CMP were all unremarkable with the exception of her CMP which showed a glucose of 136. She was given a single dose of Benadryl with minimal improvement to her symptoms. She was instructed to follow-up with her neurologist. Location of neck pain is the left side. States that she has been to the chiropractor for this finding. She states that she had been having instances of sitting up in bed during sleep and waking up in compromising positions. States that after the first night of using the CPAP, she started to have tongue numbness (back of tongue), feelings of her tingling of her head. No slurring of her speech. some intermittent lightheadedness. No double vision, no changes in her gait. No fevers, no chills. No chest pain, shortness breath. No acute confusion. no syncope. States that she is waiting on a call from neurology today, sees a neurologist within [facility]. They stated they were going to work her in the coming days to get her seen. Past medical history, appointments, medications, allergies reviewed. Previous Medical History PAST MEDICAL HISTORY Diagnosis Date - Anxiety and depression - Asthma - IUD (intrauterine device) in place 01/23/14 Mirena - Neuropathy (HCC) - BERLIN (obstructive sleep apnea) Severe, AHI 85 on 05/11/18 PSG [facility] - PTSD (post-traumatic stress disorder) Previous Surgical History PAST SURGICAL HISTORY Procedure Laterality Date - DEL W/ ANTE/POST CARE x 3 last 05/07/2016 - CORRECTION OF BUNION Left 2012 - TONSILLECTOMY HX Family History FAMILY HISTORY Problem Relation Age of Onset - Hypertension Father - Asthma Mother - Asthma Sister - Asthma Brother Patient Allergies ALLERGIES No Known Allergies Current Medications Current Outpatient Prescriptions on File Prior to Visit: COMPOUNDED PRESCRIPTION AutoPAP 15-20, heated humidification, nasal mask, EPR 3. Replace mask, tubing every 6 months. VENTOLIN HFA 90 mcg/actuation inhaler inhale 2 puffs every 4 hours if needed DULERA 200-5 mcg/actuation inhaler inhale 2 puffs by mouth twice a day montelukast (SINGULAIR) 10 mg tablet take 1 tablet by mouth at bedtime cetirizine (ZYRTEC) 10 mg tablet Take 1 tablet by mouth once daily. sertraline (ZOLOFT) 50 mg tablet Take 1 tablet by mouth once daily. Nebulizer NEBULIZER FOR HOME USE, AND SUPPLIES. DX: J45.909Use as directed ipratropium-albuterol (DUONEB) 0.5 mg-3 mg(2.5 mg base)/3 mL nebu inhale contents of 1 vial every 6 hours in nebulizer if needed for wheezing ALBUTEROL 2.5 mg /3 mL (0.083 %) nebulizer solution No current facility-administered medications on file prior to visit. Social History Social History Marital status: Spouse name: Years of education: Number of children: Social History Main Topics Smoking status: Light Tobacco Smoker Packs/day: 0.50 Years: 14.00 Types: Pipe, Cigarettes Start date: 1991 Last attempt to quit: 08/20/2015 Smokeless tobacco: Never Used Comment: Smokes 1 pipe 4 times per week. 10/01/17 TO Alcohol use: Yes Comment: Rare. None during . Drug use: No Sexual activity: Yes REVIEW OF SYSTEMS: as above ? Reviewed relevant PMHx, PSHx, Social Hx, current medications and allergies. EXAM: BP 128/76 Pulse 68 Temp 36.2 ?C (97.2 ?F) (Tympanic) Wt 123.4 kg (272 lb) BMI 38.48 kg/m? General Appearance: Well appearing, alert, in no acute distress, well-hydrated, well nourished. and Overweight. Head: Normocephalic, no masses, lesions, tenderness or abnormalities. Eyes: Anicteric sclera. Pupils are equally round and reactive to light. Extraocular movements are intact. . Ears: External ears normal, canals clear. Nose/Sinuses: Nares normal, septum midline, mucosa normal, no drainage or sinus tenderness. Oropharynx: Lips, mucosa, and tongue normal, teeth and gums normal, oropharynx normal. Neck: Supple, no adenopathy; thyroid symmetric, normal size. Lungs: lungs clear to auscultation. No wheezing, rhonchi, rales. Heart: RRR without murmur, gallop, or rubs. No ectopy. Extremities: No deformities, edema. M/S: Mild tenderness of the left upper trapezius muscle, posterior scalene muscle. Neurologic: Gait normal. +2/4 patellar reflexes normal and symmetric. Sensation grossly intact; tongue is midline, smile is symmetrical, finger to nose exercise is normal, Romberg negative, heel to martins testing is normal, no pronator drift. She states that her bilateral cheeks are equal and light touch, scalp is equal to light touch Lymph Nodes: No cervical lymphadenopathy and No supraclavicular lymphadenopathy. Health Maintenance List ANNUAL PCP TEAM CHRONIC DISEASE VISIT due on 2002 DTAP,TDAP,TD(1 - Tdap) due on 2003 INFLUENZA(1) due on 05/21/2018 STEROID INHALER PRESCRIBED due on 08/20/2018 STEROID INHALER ADHERENCE due on 08/20/2018 PAP EVERY 5 YEARS due on 04/16/2022 HPV EVERY 5 YEARS due on 04/16/2022 ONE PNEUMOVAX PRIOR TO AGE 65 Completed Data reviewed [facility] ER discharge summary reviewed, chest x-ray unremarkable, CBC unremarkable, CMP unremarkable with the exception of glucose 136 ASSESSMENT/PLAN: 1. Strain of neck muscle, subsequent encounter - ICD9: V58.89, 847.0, ICD10: S16.1XXD (primary diagnosis) - Advised use of Advil, TENS unit, before meals for comfort. Can continue chiropractor use. 2. Paresthesias - ICD9: 782.0, ICD10: R20.2 - Of just the back of the tongue, top of scalp, face cheeks. No signs of stroke. All of these symptoms started with first use of CPAP. Physical exam was normal. 3. HNPP (hereditary neuropathy with predisposition to pressure palsy) - ICD9: 356.0, ICD10: G60.8 - continue following with neurology, she states that she is getting an appointment this week Saeed Beckford APRN.[facility] EMERGENCY DEPARTMENT Observed: 08/14/2018 Status: F Source: [place] SUMMARY 1:[address] [facility] REPOSITORY [facility] Medical Records Department [address] [place] [address] Emergency Department Summary 08/14/18 1132 MR#: [id number] Acct: [id number] Name: STEPHANIE ALCANTAR Rep #: [id number] : 1985 33 From: Tate De La Torre DO PCP: Oswaldo Ramsey MD Status: REG ER - ER Visit Summary Date of Service: 08/14/18 Chief Complaint: Neck pain and tongue numbness History of Present Illness: The patient is a 33 F who presents with neck pain and numbness of her tongue that has been getting worse over the past week. Patient states she was started on CPAP for sleep apnea this week. Patient states she also has a history of hereditary neuropathy with pressure palsies. Patient states she contacted her neurologist who referred her to the emergency department for further evaluation. Patient stated that he was concerned over possible hypertapnia. Patient denies any difficulty swallowing. Does have some shortness of breath. Patient admits to an episode of nausea but denies any vomiting. Patient admits to diffuse paresthesias. Physical Examination: Vital signs are stable. Patient is afebrile. Patient is in no acute distress. Oral mucosa is pink and moist. Oropharynx is clear. Airway is patent. Neck is supple. Trachea is midline. There is no cervical spinal tenderness. There is some mild paraspinal tenderness. There is good range of motion. Heart was regular rate and rhythm. Lungs are clear and equal bilateral. There is good respiratory effort noted. Abdomen is soft. Bowel sounds are normal. There is no tenderness. There is no rebound or guarding noted. Cranial nerves II through XII are intact. There are no focal motor or sensory deficits noted. The remaining physical exam is within normal limits. Test Results: CBC and basic metabolic profile were obtained and were essentially within normal limits. Emergency Department Course and Treatment: Patient was given a dose of Benadryl here. Patient had minimal improvement with this. Patient was instructed to follow-up with her neurologist. This may be a flareup of her HNPP due to the pressure of the CPAP. Patient understood and was agreeable with the plan. All questions were answered. Disposition: Discharged home Impression: Paresthesias This note was generated with [employer] dictation software. It may contain incorrect words, spelling, and punctuation that were not noted in review of the chart prior to signing ED Disposition - Plan for ED Patient: Disposition: Home or Assisted Living Chief Complaint: General Illness Diagnosis: Paresthesias Instructions: ED Paraesthesias Referrals: Oswaldo Ramsey MD [Primary Care Provider] - What to do if you have Problems For any increased pain, shortness of breath, bleeding, nausea or vomiting, chest pain, or any unexpected problems, contact your Primary Care Provider. Call [facility] ([phone]) or report to the closest Emergency Room. Call 911 if necessary. 08/14/18 1305 <Electronically signed by Tate De La Torre DO> Date Tate De La Torre DO Cosigner Signature (If Indicated): Date CC: Oswaldo Ramsey MD CBC W/DIFF, AUTOMATED Collected: 08/14/2018 Status: F Source: [place] 11:[address] [facility] REPOSITORY TYPE CODE TESTS RESULT OUT OF RANGE REFERENCE UNITS LAB L100.1000 4.4-11.0 K/mm3 Normal WBC 5.9 LAB L100.1200 4.2-5.4 M/mm3 Normal RBC 5.10 LAB L100.1300 12.0-15.0 g/dl Normal HGB 14.7 LAB L100.1400 37-47 % Normal HCT 44.2 LAB L100.1500 81-99 fL Normal MCV 86.7 LAB L100.1600 27.0-32.0 pg Normal MCH 28.8 LAB L100.1700 32-36 g/gl Normal MCHC 33.3 LAB L100.1810 11.6-14.6 % Normal RDW CV 13.1 LAB L100.1820 35.1-43.9 fl Normal RDW SD 41.8 LAB L100.1900 150-450 K/mm3 Normal PLT 246 LAB L100.2000 6.2-12.0 fl Normal MPV 10.9 LAB L100.2100 47-70 % Normal NEUT% 59.7 LAB L100.2200 19-41 % Normal LY% 28.9 LAB L100.2300 0-10 % Normal MONO% 4.6 LAB L100.2400 0-5 % High EO% 6.1 LAB L100.2500 0-1 % Normal BASO% 0.5 LAB L100.2550 0.0-0.9 % Normal IM GRAN % 0.200 Result Comment: IG% - Immature Granulocytes (promyelocytes, myelocytes and metamyelocytes) > 1% indicates that a LEFT SHIFT is Present. LAB L100.2620 2.0-7.7 X10 3/uL Normal Absolute Neut 3.5 LAB L100.2720 0.83-4.51 X10 3/ul Normal Absolute Lymph 1.70 Performed By: #### L100.0100 #### [facility] [address] [place], [address] COMPREHENSIVE METABOLIC Collected: 08/14/2018 Status: F Source: [facility] 11:[address] [facility] REPOSITORY TYPE CODE TESTS RESULT OUT OF RANGE REFERENCE UNITS LAB L501.0100 74-106 mg/dL High GLU 136 Result Comment: Fasting Glucose result greater than or equal to 126 mg/dL suggests DIABETES MELLITUS per A.D.A. criteria. Please note revised GLUCOSE reference range effective 2017. LAB L501.1000 7-18 mg/dL Normal BUN 13 LAB L501.1100 0.55-1.02 mg/dL Normal CREAT,SERUM 0.84 Result Comment: The validity of the calculated GFR AND GFRAA in patients over 70 years has not been determined. Clinical correlation is essential. LAB L501.1110 >60 mL/min Normal EST GFR 83 Result Comment: Non- GFR Calc LAB L501.1115 >60 mL/min Normal EST GFR - AA 100 Result Comment: GFR Calc LAB L501.1255 ml/min Normal Estimated CRCL 102.05 LAB L501.1300 10-20 RATIO BUN/CRE Normal 15.6 LAB L501.1500 6.4-8. g/dL 2 T PROT Normal 7.0 LAB L501.1800 3.2-5. g/dL 0 ALB Normal 3.6 LAB L501.1950 2.2-4. g/dL 2 GLOB Normal 3.4 LAB L501.2000 0.9-2. RATIO 4 A/G Normal 1.1 LAB L501.2200 8.5-10 mg/dL .1 CA Normal 8.6 LAB L501.4100 15-37 U/L AST Normal 16 LAB L501.4305 45-117 U/L ALK P Normal 76 LAB L501.4405 13-56 U/L ALT Normal 28 LAB L501.4600 0.20-1 mg/dL .00 T BILI Normal 0.30 LAB L501.5300 136-14 mmol/L 5 NA Normal 142 LAB L501.5600 3.5-5. mmol/L 1 K Normal 3.9 LAB L501.5900 98-107 mmol/L High CL 109 LAB L501.6100 21.0-3 mmol/L 2.0 CO2 Normal 24.0 LAB L501.6200 5-15 GAP Normal 9 Performed By: #### L500.4050 #### [facility] [address] [place], [address] CHEST PA AND LATERAL Observed: 08/14/2018 Status: F Source: [place] 11:[address] [facility] REPOSITORY [facility] Imaging Services [address] [place] [address] Chest PA and Lateral MR#: [id number] Acct: [id number] Name: ALCANTARSTEPHANIE David Rep #: [id number] : 1985 F 33 From: Alvarado Moore DO PCP: Braulio BAH,Oswaldo Status: REG ER Study: Chest PA and Lateral Date of Exam: 08/14/18 Exam# [id number] Ordering Dr: Tate De La Torre DO STUDY: X-RAY CHEST REASON FOR EXAM: Female, 33 years old. Neck pain. TECHNIQUE: PA and lateral views of the chest. COMPARISON: 11 April 2018 FINDINGS: The lungs are clear and expanded. There is no demonstrated pleural abnormality. Normal size heart. Normal mediastinum and naida. Normal visualized pulmonary arteries. Normal visualized aortic arch and descending thoracic aorta. Normal visualized thoracic spine. Normal visualized ribs, clavicles, and shoulders. There is no demonstrated abnormality of the visualized soft tissue structures of the upper abdomen. RAD/Chest PA and Lateral IMPRESSION: No evidence of acute cardiopulmonary process. Electronically Signed: Alvarado Moore DO at 12:06 EST , Service support , CC: Tate De La Torre DO; Oswaldo Ramsey MD Pile Driving Supervisor: Signed CNOV Observed: 08/01/2018 Status: COMPLETED Source: [place] 8:30 AM [facility] REPOSITORY Office Visit (PULMWS) STEPHANIE ALCANTAR ([id number]) 1985 F Date Time Provider Department 08/01/18 8:30 AM ISAC MARQUEZ During your visit today, we recorded the following information about you: Pulse Respiration Blood pressure Weight 77/minute 16/minute 100/62 123.4 kg Isac Marquez MD 08/01/2018 9:13 AM Signed [facility] [place], 08/01/2018: INTERVAL HISTORY: The patient is here for follow up of asthma. Symptom flare at last visit resolved with Primary Care Physician visit and Rx of ear infection. The patient admits to consistent compliance with prescribed maintenance Rx. There have been no prednisone, ED visits, hospitalization for management of asthma exacerbation. Infrequent rescue bronchodilator use, with relief. No nocturnal awakenings per month with asthma symptoms. Minimal cough, no purulent sputum, infrequent wheezing. ADLs not limited by dyspnea No disruption in taste or voice associated with use of inhaled corticosteroid. No tremor, palpitations, or muscle cramping associated with bronchodilator inhalation. Seen in consultation today from Temo Cisneros MD [address] [facility], [place] [address]; who had seen her for evaluation of loud disruptive snoring, excessive daytime sleepiness, restless legs. Split-night sleep study at [facility] 05/11/2018 demonstrated AHI 85.1, minimum SPO2 82%, and on CPAP 15 AHI 5, minimum SPO2 90%, on CPAP 17 AHI 0.6, minimum SPO2 95%. No treatment has been prescribed since this study, and Dr. Reilly advised the patient she was not a candidate for surgical therapy of her sleep apnea. PMH: Updated with patient today. Added BERLIN based on 05/11/2018 PSG. FAMH: Updated with patient today. SOCH: Updated with patient today. There is no immunization history on file for this patient. She declines Influenza vaccination. Allergies were verified and updated, and medications were reconciled with the patient at this visit. PHYSICAL EXAMINATION: BP 100/62 Pulse 77 Resp 16 Wt 272 lb (123.4kg) SpO2 98% Gen: No acute distress. Cooperative with examination. Obese. ENT: Nares clear. Resp: No stridor, accessory respiratory muscle use. CV: Regular rythm. Radial pulses normal. Abd: Not distended. MSK: No kyphoscoliosis. Ext: Warm and well perfused. No edema, cyanosis. Skin: No rash, eczema, urticaria. Neuro: Mental status normal. No tremor. DATA REVIEW: Prior serial spirometry. PSG [facility], 05/11/2018: AHI 85.1, minimum spO2 82%, mean spO2 93.4%. CPAP 15 AHI 5, minimum SPO2 90%, CPAP 17 AHI 0.6, minimum SPO2 95%. Report to be scanned into EMR. IMPRESSION and RECOMMENDATIONS: Asthma, persistent, without complication. 1. No changes in maintenance Rx: 2. Continue Albuterol HFA inhaler, 2 inhalations 10?15 minutes prior to activities associated with shortness of breath, and as needed for rescue relief of shortness of breath or wheezing, up to 4 times daily. 3. Patient declines Influenza vaccination. 5. Re-assess in 6 months. Obstructive sleep apnea, severe, confirmed by [facility] PSG 05/11/2018. 1. - Rx to [facility], AutoPAP 15-20. I addressed the questions of the patient, and she expressed understanding and acceptance of my answers. Isac Marquez MD, [facility] [address] [place], [place] [address] P: [phone] F: [phone] [email or web address] Isac Marquez MD 08/01/2018 9:12 AM Addendum Persistent asthma, without complication. - Continue maintenance medications. - Continue Albuterol HFA inhaler, 2 inhalations as needed for rescue relief of shortness of breath or wheezing, up to 4 times daily. Severe obstructive sleep apnea. - Rx to [facility], AutoPAP 15-20. Isac Marquez MD, [facility] [place] [address] [place] [address] P: [phone] F: [phone] [email or web address] Referring Provider: SELF [200] Allergies As of Date: 08/01/2018 (No Known Allergies) Date Reviewed: 08/01/2018 Reviewed by: Isac Marquez - Fully Assessed Reason for Visit: Established Patient [175] Cmt: Asthma. Consult [173] Cmt: Severe BERLIN, 05/11/2018 PSG [facility] Reason For Visit History Recorded Primary Visit Diagnosis:BERLIN (obstructive sleep apnea) [G47.33] Other Visit Diagnoses:Severe persistent asthma without complication [J45.50] Class 2 severe obesity due to excess calories with serious comorbidity in adult, unspecified BMI (HCC) [E66.01] Order(s):COMPOUNDED PRESCRIPTIONAutoPAP 15-20, heated humidification, nasal mask, EPR 3. Replace mask, tubing every 6 months.Disp: 1 EachRfl: 0 Prescriptions as of 08/01/2018 Sig: COMPOUNDED PRESCRIPTION AutoPAP 15-20, heated humidif* VENTOLIN HFA 90 MCG/ACTUATION* inhale 2 puffs every 4 hours * X AZITHROMYCIN 250 MG TABLET TAKE 2 TABS ON THE FIRST DAY,* Patient not taking: Reported on 08/01/2018 X PREDNISONE 10 MG TABLET 4 tablets daily for 3 days, 3* DULERA 200 MCG-5 MCG/ACTUATIO* inhale 2 puffs by mouth twice* MONTELUKAST 10 MG TABLET take 1 tablet by mouth at bed* CETIRIZINE 10 MG TABLET Take 1 tablet by mouth once d* SERTRALINE 50 MG TABLET Take 1 tablet by mouth once d* COMPOUNDED PRESCRIPTION NEBULIZER FOR HOME USE, AND S* IPRATROPIUM-ALBUTEROL 0.5 MG-* inhale contents of 1 vial jeannie* * ALBUTEROL SULFATE 2.5 MG/3 ML* Problem List As Of Date 08/01/2018 Noted Resolved Functional dyspareunia [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 Notes for Staff Discussed this visit Other instructions from your clinician: Persistent asthma, without complication. - Continue maintenance medications. - Continue Albuterol HFA inhaler, 2 inhalations as needed for rescue relief of shortness of breath or wheezing, up to 4 times daily. Severe obstructive sleep apnea. - Rx to [facility], AutoPAP 15-20. Isac Marquez MD, [facility] [address] [address] P: [phone] F: [phone] [email or web address] Prescriptions ordered this encounter Disp Refills Start End COMPOUNDED PRESCRIPTION 1 Ea* 0 08/01/2018 Class: Print RX Sig: AutoPAP 15-20, heated humidification, nasal mask, EPR 3. Replace mask, tubing every 6 months. Follow Up: Discussed this visit Disposition: Return in about 6 months (around 01/29/2019). Follow-up and Disposition History Recorded Encounter Status:Closed by ISAC MARQUEZ MD on 08/01/18 PROGRESS Observed: 08/01/2018 Status: COMPLETED Source: [place] 8:29 AM [facility] [place] REPOSITORY HNO ID: [id number] Author: Isac Marquez Service: (none) Author Type: Physician Type: Progress Notes Filed: 08/01/2018 9:13 AM Note Text: [facility], 08/01/2018: INTERVAL HISTORY: The patient is here for follow up of asthma. Symptom flare at last visit resolved with Primary Care Physician visit and Rx of ear infection. The patient admits to consistent compliance with prescribed maintenance Rx. There have been no prednisone, ED visits, hospitalization for management of asthma exacerbation. Infrequent rescue bronchodilator use, with relief. No nocturnal awakenings per month with asthma symptoms. Minimal cough, no purulent sputum, infrequent wheezing. ADLs not limited by dyspnea No disruption in taste or voice associated with use of inhaled corticosteroid. No tremor, palpitations, or muscle cramping associated with bronchodilator inhalation. Seen in consultation today from Temo Cisneros MD [address] [facility], [place] [address]; who had seen her for evaluation of loud disruptive snoring, excessive daytime sleepiness, restless legs. Split-night sleep study at [facility] 05/11/2018 demonstrated AHI 85.1, minimum SPO2 82%, and on CPAP 15 AHI 5, minimum SPO2 90%, on CPAP 17 AHI 0.6, minimum SPO2 95%. No treatment has been prescribed since this study, and Dr. Reilly advised the patient she was not a candidate for surgical therapy of her sleep apnea. PMH: Updated with patient today. Added [place] based on 05/11/2018 PSG. FAMH: Updated with patient today. SOCH: Updated with patient today. There is no immunization history on file for this patient. She declines Influenza vaccination. Allergies were verified and updated, and medications were reconciled with the patient at this visit. PHYSICAL EXAMINATION: BP 100/62 Pulse 77 Resp 16 Wt 272 lb (123.4kg) SpO2 98% Gen: No acute distress. Cooperative with examination. Obese. ENT: Nares clear. Resp: No stridor, accessory respiratory muscle use. CV: Regular rythm. Radial pulses normal. Abd: Not distended. MSK: No kyphoscoliosis. Ext: Warm and well perfused. No edema, cyanosis. Skin: No rash, eczema, urticaria. Neuro: Mental status normal. No tremor. DATA REVIEW: Prior serial spirometry. PSG [facility], 05/11/2018: AHI 85.1, minimum spO2 82%, mean spO2 93.4%. CPAP 15 AHI 5, minimum SPO2 90%, CPAP 17 AHI 0.6, minimum SPO2 95%. Report to be scanned into EMR. IMPRESSION and RECOMMENDATIONS: Asthma, persistent, without complication. 1. No changes in maintenance Rx: 2. Continue Albuterol HFA inhaler, 2 inhalations 10?15 minutes prior to activities associated with shortness of breath, and as needed for rescue relief of shortness of breath or wheezing, up to 4 times daily. 3. Patient declines Influenza vaccination. 5. Re-assess in 6 months. Obstructive sleep apnea, severe, confirmed by [facility] PSG 05/11/2018. 1. - Rx to [facility], SeverinoPAP 15-20. I addressed the questions of the patient, and she expressed understanding and acceptance of my answers. Isac Marquez MD, [facility] [address] [place] [address] P: [phone] F: [phone] [email or web address] CNCO Observed: 08/01/2018 Status: COMPLETED Source: [place] 12:00 AM [facility] REPOSITORY Letter Text Stephanie Alcantar Isac Marquez MD, [facility] [address] [place] [address] [email or web address] August 01, 2018 Temo Cisneros MD [address] [place] [address] RE: Stephanie Alcantar. : 1985 CC#: [id number] Dear Dr. Cisneros, It was my pleasure to evaluate your patient today in the [facility]. I have enclosed a copy of the visit summary for your review and records. If you have any questions regarding this report, please feel free to contact me. Sincerely, Isac Marquez MD, [facility] Enclosure EMERGENCY DEPARTMENT Observed: 04/18/2018 Status: F Source: [place] SUMMARY 12:[address] [facility] REPOSITORY [facility] Medical Records Department [address] [place] [address] Emergency Department Summary 04/11/18 0855 MR#: [id number] Acct: [id number] Name: STEPHANIE ALCANTAR Rep #: [id number] : 1985 32 From: Anthony Estrella DO PCP: Oswaldo Ramsey MD Status: DEP ER - ER Visit Summary Date of Service: 04/11/18 Chief Complaint: Shortness of breath History of Present Illness: The patient is a 32 F who states that she has a history of asthma. She sees Dr. Ingram for pulmonology. She states that she has albuterol aerosols at home as well as her daily medications including Ventolin Singulair Dulera and sertraline. Patient states that her daughter began to have viral URI symptoms and beginning last evening the patient notes increasing shortness of breath. She was seen at urgent care and given breathing treatments with no significant improvement and sent to the emergency room. Patient does note that she smokes a pipe. Physical Examination: Afebrile vital signs are stable Gen: Well-nourished well-developed Head: Normocephalic atraumatic Eyes: Perrl EOMI ENT: TMs clear no rhinorrhea moist mucous membranes Neck: Supple no lymphadenopathy no JVD nontender CVS: Regular rate rhythm no murmurs normal S1-S2 Respiratory: Patient is tachypneic but has good air movement and expiratory wheeze. Chest nontender Abdomen: Soft nontender nondistended normal bowel sounds no masses Back: Nontender Extremity: Nontender no edema Skin: Normal color no rash Neuro: alert orientated 3 CN II-XII intact normal strength sensation reflexes gait cerebellar Psych: Anxious Test Results: Chest x-ray negative for infiltrate. Emergency Department Course and Treatment: Received Solu-Medrol and breathing treatments. Her peak flows are improved. Return if worsening follow-up with pulmonology Impression: 1. Acute exacerbation of asthma This note was generated with [employer] dictation software. It may contain incorrect words, spelling, and punctuation that were not noted in review of the chart prior to signing ED Disposition - Plan for ED Patient: Disposition: Home or Assisted Living Chief Complaint: Shortness of Breath Instructions: Discharge Instructions for Asthma Prescriptions: Ipratropium/Albuterol Sulfate [Duoneb] 3 ml INHALATION Q6H.RT #12 ampul.neb RX: Prednisone 60 mg PO DAILY #15 tab Referrals: Isac Marquez MD [NON-STAFF] - 3-5 Days if not improving What to do if you have Problems For any increased pain, shortness of breath, bleeding, nausea or vomiting, chest pain, or any unexpected problems, contact your Primary Care Provider. Call [facility] ([phone]) or report to the closest Emergency Room. Call 911 if necessary. 04/18/18 0025 <Electronically signed by Anthony Estrella DO> Date Anthony Estrella DO [facility] Signature (If Indicated): Date CC: Oswaldo Ramsey MD Observed: 04/15/2018 Status: F Source: [place] RESPIRATORY CULT/STAIN 7:00 AM [facility] [place] REPOSITORY Sp. Request/Comment: - Specimen received in sterile container. Smear Result - Few Mixed oral la Rare Polymorphonuclear leukocytes Rare Epithelial cells Culture Result - Many Normal respiratory la present Performed By: #### RCULST #### [facility] [address] [place], [place] [address] PROGRESS Observed: 04/14/2018 Status: COMPLETED Source: [place] 9:06 AM [facility] REPOSITORY HNO ID: [id number] Author: Ana Scott Service: (none) Author Type: Physician Coder Operator Type: Progress Notes Filed: 04/14/2018 9:34 AM Note Text: [facility], : INTERVAL HISTORY: The patient is here for follow up of asthma; the last Pulmonary Clinic visit was 12/30/17. The patient admits to compliance with prescribed maintenance Rx: Dulera 2 inhalations twice daily. Patient was evaluated in 04/11/18 secondary to increasing shortness of breath. She was given nebulizer treatment without any improvement and sent to [place] ED. CXR at that time negative for infiltrate. Patient given Solu-Medrol in the ED and discharged home with Prednisone 60 mg for a 5 day course. Today, patient states she continues with shortness of breath and wheezing. Waking every 2 hours with asthma symptoms. Productive cough with thick yellow sputum. No hemoptysis. No pleuritic chest pain. Wheezing. Increased dyspnea. Previously had fevers and chills, currently afebrile. Children in home with URI. PMH: Updated with patient today. FAMH: Updated with patient today. SOCH: Updated with patient today. ROS: General: Generally feels ill. Appetite fair. Weight stable. Eyes, Ears, nose, throat: No post nasal drip, rhinorrhea, purulent nasal discharge, epistaxis. No hoarseness. Vision stable. Cardiac: No angina, edema, orthopnea. GI: No heartburn, dysphagia, diarrhea. 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 Musculoskeletal: No pain. Neuro: No headache, focal weakness, tremor. Skin: No rash. Otherwise negative. There is no immunization history on file for this patient. Allergies were verified and updated, and medications were reconciled with the patient at this visit. PHYSICAL EXAMINATION: BP 118/60 Pulse 74 Resp 24 Wt 276 lb (125.2kg) SpO2 98% Gen: No acute distress. Cooperative with examination. ENT: Nares clear. Oral hygeine good. Pharynx clear. No sign of oral thrush. Resp: No stridor, accessory respiratory muscle use. No crackles. Wheezes throughout. CV: Regular rythm. Heart tones normla. Radial pulses normal. Abd: Non distended. MSK: No kyphoscoliosis. Ext: Warm and well perfused. No cyanosis. Skin: No rash, eczema, urticaria. Neuro: Mental status normal. No tremor. DATA REVIEW: CXR, 04/11/18 [place] ED read only. Negative for infiltrate. IMPRESSION and RECOMMENDATIONS: Asthma, severe persistent, with acute exacerbation. 1. Complete 5 day course of Prednisone, then start Prednisone taper as directed. 2. Start Azithromycin as directed. 3. Sputum culture. Provided specimen cup. Patient to drop off collection. 4. Continue maintenance medications. 5. Will re-assess in 2 weeks, if no improvement, will check CXR at that time. I addressed the questions of the patient, and she expressed understanding and acceptance of my answers. Ana Scott PA-C [facility] [address] [place] [address] CNOV Observed: 04/14/2018 Status: COMPLETED Source: [place] 9:00 AM [facility] REPOSITORY Office Visit (PULMWS) STEPHANIE ALCANTAR ([id number]) 1985 F Date Time Provider Department 04/14/18 9:00 AM ANA SCOTT During your visit today, we recorded the following information about you: Pulse Respiration Blood pressure Weight 74/minute 24/minute 118/60 125.2 kg Ana Scott PA-C 04/14/2018 9:34 AM Signed [facility], : INTERVAL HISTORY: The patient is here for follow up of asthma; the last Pulmonary Clinic visit was 12/30/17. The patient admits to compliance with prescribed maintenance Rx: Dulera 2 inhalations twice daily. Patient was evaluated in 04/11/18 secondary to increasing shortness of breath. She was given nebulizer treatment without any improvement and sent to [place] ED. CXR at that time negative for infiltrate. Patient given Solu-Medrol in the ED and discharged home with Prednisone 60 mg for a 5 day course. Today, patient states she continues with shortness of breath and wheezing. Waking every 2 hours with asthma symptoms. Productive cough with thick yellow sputum. No hemoptysis. No pleuritic chest pain. Wheezing. Increased dyspnea. Previously had fevers and chills, currently afebrile. Children in home with URI. PMH: Updated with patient today. FAMH: Updated with patient today. SOCH: Updated with patient today. ROS: General: Generally feels ill. Appetite fair. Weight stable. Eyes, Ears, nose, throat: No post nasal drip, rhinorrhea, purulent nasal discharge, epistaxis. No hoarseness. Vision stable. Cardiac: No angina, edema, orthopnea. GI: No heartburn, dysphagia, diarrhea. 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 Musculoskeletal: No pain. Neuro: No headache, focal weakness, tremor. Skin: No rash. Otherwise negative. There is no immunization history on file for this patient. Allergies were verified and updated, and medications were reconciled with the patient at this visit. PHYSICAL EXAMINATION: BP 118/60 Pulse 74 Resp 24 Wt 276 lb (125.2kg) SpO2 98% Gen: No acute distress. Cooperative with examination. ENT: Nares clear. Oral hygeine good. Pharynx clear. No sign of oral thrush. Resp: No stridor, accessory respiratory muscle use. No crackles. Wheezes throughout. CV: Regular rythm. Heart tones normla. Radial pulses normal. Abd: Non distended. MSK: No kyphoscoliosis. Ext: Warm and well perfused. No cyanosis. Skin: No rash, eczema, urticaria. Neuro: Mental status normal. No tremor. DATA REVIEW: CXR, 04/11/18 [place] ED read only. Negative for infiltrate. IMPRESSION and RECOMMENDATIONS: Asthma, severe persistent, with acute exacerbation. 1. Complete 5 day course of Prednisone, then start Prednisone taper as directed. 2. Start Azithromycin as directed. 3. Sputum culture. Provided specimen cup. Patient to drop off collection. 4. Continue maintenance medications. 5. Will re-assess in 2 weeks, if no improvement, will check CXR at that time. I addressed the questions of the patient, and she expressed understanding and acceptance of my answers. Ana Scott PA-C [facility] [address] [place] [phone] Ana Scott PA-C 04/14/2018 9:34 AM Signed Asthma, severe persistent, with acute exacerbation. 1. Complete 5 day course of Prednisone, then start Prednisone taper as directed. 2. Start Azithromycin as directed. 3. Sputum culture. Provided specimen cup. Patient to drop off collection. 4. Continue maintenance medications. 5. Will re-assess in 2 weeks, if no improvement, will check CXR at that time. Referring Provider: SELF [[id number]] Allergies As of Date: 04/14/2018 (No Known Allergies) Date Reviewed: 04/14/2018 Reviewed by: Ana Scott - Fully Assessed Reason for Visit: Established Patient [175] Cmt: asthma follow up Primary Visit Diagnosis:Severe persistent asthma with acute exacerbation [J45.51] Other Visit Diagnosis:Productive cough [R05] Order(s):azithromycin (ZITHROMAX Z-CHAO) 250 mg tabletTAKE 2 TABS ON THE FIRST DAY, THEN ONE TAB DAILY FOR 4 DAYS.Disp: 6 tabletRfl: 0 predniSONE (DELTASONE) 10 mg tablet4 tablets daily for 3 days, 3 tablets daily for 3 days, 2 tablets daily for 3 days, 1 tablet daily for 3 days.Disp: 30 tabletRfl: 0 RESP CULTURE + STAIN [SQRCULST] Order #: [id number] Prescriptions as of 04/14/2018 Sig: VENTOLIN HFA 90 MCG/ACTUATION* inhale 2 puffs by mouth every* DULERA 200 MCG-5 MCG/ACTUATIO* inhale 2 puffs by mouth twice* MONTELUKAST 10 MG TABLET take 1 tablet by mouth at bed* CETIRIZINE 10 MG TABLET Take 1 tablet by mouth once d* SERTRALINE 50 MG TABLET Take 1 tablet by mouth once d* IPRATROPIUM-ALBUTEROL 0.5 MG-* inhale contents of 1 vial jeannie* * ALBUTEROL SULFATE 2.5 MG/3 ML* AZITHROMYCIN 250 MG TABLET TAKE 2 TABS ON THE FIRST DAY,* PREDNISONE 10 MG TABLET 4 tablets daily for 3 days, 3* COMPOUNDED PRESCRIPTION NEBULIZER FOR HOME USE, AND S* Problem List As Of Date 04/14/2018 Noted Resolved Functional 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 1. Complete 5 day course of Prednisone, then start Prednisone taper as directed. 2. Start Azithromycin as directed. 3. Sputum culture. Provided specimen cup. Patient to drop off collection. 4. Continue maintenance medications. 5. Will re-assess in 2 weeks, if no improvement, will check CXR at that time. Prescriptions ordered this encounter Disp Refills Start End PREDNISONE 10 MG TABLET 04/14/2018 04/14/2018 Class: Med Update Si tablets daily for 5 days. AZITHROMYCIN 250 MG TABLET 6 ta* 0 04/14/2018 Sig: TAKE 2 TABS ON THE FIRST DAY, THEN ONE TAB DAILY FOR 4 DAYS. PREDNISONE 10 MG TABLET 30 t* 0 04/14/2018 Si tablets daily for 3 days, 3 tablets daily for 3 days, 2 tablets daily for 3 days, 1 tablet daily for 3 days. Medications Discontinued During This Encounter predniSONE (DELTASONE) 10 mg tablet 04/14/2018 04/14/2018 Class: Med Update Si tablets daily for 5 days. Disc: Reason for discontinue is not on file. Disposition: Return in about 2 weeks (around 04/28/2018). Follow-up and Disposition History Recorded Encounter Status:Closed by ANA SCOTT on 04/14/18 CHEST PA AND LATERAL Observed: 04/11/2018 Status: F Source: [place] 8:[address] [facility] REPOSITORY [facility] Imaging Services [address] [place] [address] Chest PA and Lateral MR#: [id number] Acct: [id number] Name: STEPHANIE ALCANTAR Rep #: [id number] : 1985 F 32 From: Diana Bar MD PCP: Oswaldo Ramsey MD Status: REG ER Study: Chest PA and Lateral Date of Exam: 04/11/18 Exam# [id number] Ordering Dr: Anthony Estrella DO STUDY: X-RAY CHEST REASON FOR EXAM: Female, 32 years old. Pt. has asthma, cough/cold symptoms, very SOB TECHNIQUE: Frontal and lateral views of the chest. COMPARISON: None. FINDINGS: The lungs are clear and expanded. There is no demonstrated pleural abnormality. Normal size heart. Normal mediastinum and naida. Normal visualized pulmonary arteries. Normal visualized aortic arch and descending thoracic aorta. Normal visualized thoracic spine. Normal visualized ribs, clavicles, and shoulders. There is no demonstrated abnormality of the visualized soft tissue structures of the upper abdomen. RAD/Chest PA and Lateral IMPRESSION: Normal x-ray examination of the chest. Electronically Signed: Diana Bar MD at 10:26 EDT Tel , Service support , CC: Anthony Estrella DO; Oswaldo Ramsey MD Pile Driving Supervisor: Signed PROGRESS Observed: 04/11/2018 Status: COMPLETED Source: [place] 8:23 AM [facility] [place] REPOSITORY O ID: [id number] Author: Lorrie Neumann Service: (none) Author Type: Nurse Practitioner Type: Progress Notes Filed: 04/11/2018 8:41 AM Note Text: Subjective HPI Stephanie Alcantar is a 32 year old female who presents with shortness of breath and cough and wheezing. She started feeling wheezy last night and has been using her inhalers and nebulizer at home and has had increasing shortness of breath, wheezing and cough since. She has a history of asthma and has not had to use her nebulizer in months. Review of Systems Constitutional: Negative for fever. HENT: Positive for congestion. Negative for sore throat. Respiratory: Positive for cough, shortness of breath and wheezing. Cardiovascular: Negative. Negative for chest pain. Skin: Negative. PAST MEDICAL HISTORY Diagnosis Date - Anxiety and depression - Asthma - IUD (intrauterine device) in place 01/23/14 Mirena - Neuropathy (HCC) - PTSD (post-traumatic stress disorder) PAST SURGICAL HISTORY Procedure Laterality Date - DEL W/ ANTE/POST CARE x 3 last 05/07/2016 - CORRECTION OF BUNION Left 2012 - TONSILLECTOMY HX ALLERGIES Patient has no known allergies. MEDICATIONS VENTOLIN HFA 90 mcg/actuation inhaler inhale 2 puffs by mouth every 4 hours if needed DULERA 200-5 mcg/actuation inhaler inhale 2 puffs by mouth twice a day montelukast (SINGULAIR) 10 mg tablet take 1 tablet by mouth at bedtime cetirizine (ZYRTEC) 10 mg tablet Take 1 tablet by mouth once daily. sertraline (ZOLOFT) 50 mg tablet Take 1 tablet by mouth once daily. Nebulizer NEBULIZER FOR HOME USE, AND SUPPLIES. DX: J45.909Use as directed ipratropium-albuterol (DUONEB) 0.5 mg-3 mg(2.5 mg base)/3 mL nebu inhale contents of 1 vial every 6 hours in nebulizer if needed for wheezing ALBUTEROL 2.5 mg /3 mL (0.083 %) nebulizer solution FAMILY HISTORY Problem Relation Age of Onset - Hypertension Father - Asthma Mother - Asthma Sister - Asthma Brother Social History Substance Use Topics - Smoking status: Light Tobacco Smoker Packs/day: 0.50 Years: 14.00 Types: Pipe, Cigarettes Start date: 1991 Last attempt to quit: 08/20/2015 - Smokeless tobacco: Never Used Comment: Smokes 1 pipe 4 times per week. 12/30/17 JMB - Alcohol use Yes Comment: Rare. None during . Objective Physical Exam Constitutional: She is oriented to person, place, and time and well-developed, well-nourished, and in no distress. HENT: Head: Normocephalic. Cardiovascular: Regular rhythm and normal heart sounds. Pulmonary/Chest: Tachypnea noted. She has wheezes in the right upper field, the right middle field, the right lower field, the left upper field, the left middle field and the left lower field. Neurological: She is alert and oriented to person, place, and time. Skin: Skin is warm and dry. Nursing note and vitals reviewed. ASSESSMENT/PLAN: 1. Wheezing - ICD9: 786.07, ICD10: R06.2 - ALBUTEROL SULFATE 2.5 MG/3 ML (0.083 %) SOLUTION FOR NEBULIZATION- given in office. -Patient's respiratory status did not improved after one albuterol treatment here. She was referred to the emergency room. Her was called from work and he is transporting her there. Report was called to the attending MD at [facility]. Lorrie Neumann APRN.[place] CNOV Observed: 04/11/2018 Status: COMPLETED Source: [place] 8:15 AM [facility] REPOSITORY Office Visit (WSTR) STEPHANIE ALCANTAR ([id number]) 1985 F Date Time Provider Department 04/11/18 8:15 AM LORRIE NEUMANN ([place]) [facility] During your visit today, we recorded the following information about you: Pulse Respiration 100/minute 34/minute Lorrie Neumann APRN.CNP 04/11/2018 8:41 AM Signed Subjective HPI Stephanie Alcantar is a 32 year old female who presents with shortness of breath and cough and wheezing. She started feeling wheezy last night and has been using her inhalers and nebulizer at home and has had increasing shortness of breath, wheezing and cough since. She has a history of asthma and has not had to use her nebulizer in months. Review of Systems Constitutional: Negative for fever. HENT: Positive for congestion. Negative for sore throat. Respiratory: Positive for cough, shortness of breath and wheezing. Cardiovascular: Negative. Negative for chest pain. Skin: Negative. PAST MEDICAL HISTORY Diagnosis Date - Anxiety and depression - Asthma - IUD (intrauterine device) in place 01/23/14 Mirena - Neuropathy (HCC) - PTSD (post-traumatic stress disorder) PAST SURGICAL HISTORY Procedure Laterality Date - DEL W/ ANTE/POST CARE x 3 last 05/07/2016 - CORRECTION OF BUNION Left 2012 - TONSILLECTOMY HX ALLERGIES Patient has no known allergies. MEDICATIONS VENTOLIN HFA 90 mcg/actuation inhaler inhale 2 puffs by mouth every 4 hours if needed DULERA 200-5 mcg/actuation inhaler inhale 2 puffs by mouth twice a day montelukast (SINGULAIR) 10 mg tablet take 1 tablet by mouth at bedtime cetirizine (ZYRTEC) 10 mg tablet Take 1 tablet by mouth once daily. sertraline (ZOLOFT) 50 mg tablet Take 1 tablet by mouth once daily. Nebulizer NEBULIZER FOR HOME USE, AND SUPPLIES. DX: J45.909Use as directed ipratropium-albuterol (DUONEB) 0.5 mg-3 mg(2.5 mg base)/3 mL nebu inhale contents of 1 vial every 6 hours in nebulizer if needed for wheezing ALBUTEROL 2.5 mg /3 mL (0.083 %) nebulizer solution FAMILY HISTORY Problem Relation Age of Onset - Hypertension Father - Asthma Mother - Asthma Sister - Asthma Brother Social History Substance Use Topics - Smoking status: Light Tobacco Smoker Packs/day: 0.50 Years: 14.00 Types: Pipe, Cigarettes Start date: 1991 Last attempt to quit: 08/20/2015 - Smokeless tobacco: Never Used Comment: Smokes 1 pipe 4 times per week. 12/30/17 JMB - Alcohol use Yes Comment: Rare. None during . Objective Physical Exam Constitutional: She is oriented to person, place, and time and well-developed, well-nourished, and in no distress. HENT: Head: Normocephalic. Cardiovascular: Regular rhythm and normal heart sounds. Pulmonary/Chest: Tachypnea noted. She has wheezes in the right upper field, the right middle field, the right lower field, the left upper field, the left middle field and the left lower field. Neurological: She is alert and oriented to person, place, and time. Skin: Skin is warm and dry. Nursing note and vitals reviewed. ASSESSMENT/PLAN: 1. Wheezing - ICD9: 786.07, ICD10: R06.2 - ALBUTEROL SULFATE 2.5 MG/3 ML (0.083 %) SOLUTION FOR NEBULIZATION- given in office. -Patient's respiratory status did not improved after one albuterol treatment here. She was referred to the emergency room. Her was called from work and he is transporting her there. Report was called to the attending MD at [facility]. CATINA Noonan APRN.CNP 04/11/2018 8:26 AM Signed Please go to the emergency room for further evaluation and treatment. You had one breathing treatment at prior to being seen in [facility], and one Albuterol breathing treatment at [facility] and you are still having wheezing and shortness of breath. Referring Provider: SELF [[id number]] Allergies As of Date: 04/11/2018 (No Known Allergies) Date Reviewed: 04/11/2018 Reviewed by: Lorrie Neumann - Fully Assessed Primary Visit Diagnosis:Wheezing [R06.2] Order(s):[] albuterol 2.5 mg /3 mL (0.083 %) 2.5 mg (PROVENTIL)Disp: Rfl: Prescriptions as of 04/11/2018 Sig: VENTOLIN HFA 90 MCG/ACTUATION* inhale 2 puffs by mouth every* DULERA 200 MCG-5 MCG/ACTUATIO* inhale 2 puffs by mouth twice* MONTELUKAST 10 MG TABLET take 1 tablet by mouth at bed* CETIRIZINE 10 MG TABLET Take 1 tablet by mouth once d* SERTRALINE 50 MG TABLET Take 1 tablet by mouth once d* COMPOUNDED PRESCRIPTION NEBULIZER FOR HOME USE, AND S* IPRATROPIUM-ALBUTEROL 0.5 MG-* inhale contents of 1 vial jeannie* * ALBUTEROL SULFATE 2.5 MG/3 ML* Problem List As Of Date 04/11/2018 Noted Resolved 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 You had one breathing treatment at prior to being seen in [facility], and one Albuterol breathing treatment at [facility] and you are still having wheezing and shortness of breath. Prescriptions ordered this encounter Disp Refills Start End ALBUTEROL SULFATE 2.5 MG/3 ML (0.083* 04/11/2018 04/11/2018 Route: INHALATION Encounter Status:Closed by LORRIE NEUMANN on 04/11/18 INITAL EVALUATION (1) Observed: 03/17/2018 Status: F Source: [place] - PT 4:[address] [facility] REPOSITORY [facility] [address] [place] [address]. [address] [place] [address] Fax REHABILITATION SERVICES INITIAL EVALUATION MR#: [id number] Acct: [id number] Name: STEPHANIE ALCANTAR Rep #: [id number] : 1985 32 From: Kraig Chiu DPT Referring Dr.: Priscilla Mcdonald DPM Status: REG R Insurance: [facility] SEL[employer] PAY INSURANCE Patient's Visit Information STEPHANIE ALCANTAR is a 32 year old F referred to Physical Therapy by Priscilla Mcdonald DPM with a diagnosis of L sinus tarsitis, LBP, HNPP. Date of Evaluation: 02/04/18 Physical Therapist: Kraig Chiu - Visit Plan Frequency: 2-3x /Week Duration: 6-8 weeks Plan: Progress velocities next. - Subjective Subjective: Pt. is here today for her initial evaluation with diagnosis of left sinus tarsitis, Hereditary neuropathy disorder and low back pain. Pt. reprots having left foot/ankle pain for many years, but is getting worse. Pt. reports increased pain in her foot with walking, standing, stairs, and all functional mobility. Decreased symptoms in her foot with non wbing, but it does not totally go away. Pt. does have a brace for her L ankle, but is not wearing today. Pt. has trialed PT previously, but did not have improved symptoms. Pt. is hopeful to trial aquatic therapy to increase gait progress, ROM, and strength to reduce symptoms. Pt. is also having LBP which started 3-4 months ago with no mechanism of injury. She was planning on seeing a chiropractor for it, but has yet to start. Pt. reprots increased LBP with lifting, bending, twisting, walking, carrying her children. Pt. denies N/T down her legs. Pt. reports difficulty sleeping due to her back pain. Pt. reports nothing really decreases her back pain. Pt. is hopeful to increased LLE pain and back pain allowing for increased tolerance to all ADLs and activities. - Pain Lumbar Spine Pain Intensity (Out of 10): 6 Pain Intensity Range: 3, 7 RLE Pain Intensity (Out of 10): 6 Pain Intensity Range: 1, 4 Comment: hip L foot Pain Intensity (Out of 10): 7 Pain Intensity Range: 6, 8 - Objective POSTURE: Pt. has generalized flexed posture, pes planus bilaterally with minimal longitudinal arch height, L worse than R. Pt. has increased R lateral trunk lean in stance. PALPATION: Pt. had pain to L 1st met head, along medial longitudial arch of L foot and along post tib tendon. Pt. has increased pain at lumbar spine paraspinals and into B piriformis region. NEUROLOGICAL: Pt. has normal senation to light and sharp touch. Pt. has 2+ pedal pulse. Pt. has 2+ achilles and patellar DTR bilateraly. Pt. is able to rise on heels and toes, but reports increased pain while doing so. ROM: LUMBAR SPINE: flexion min loss increase NW, ext mod loss increase NW, SB mod loss increase NW bilat, rotation mod loss increase NW bilat. L ankle- DF 10deg, PF 38deg, INV 10deg, EVR 10deg. Pt. reports increased pain with all OP of motion of L ankle. Pt. has normal hip ROM, HS tightness bilaterally. MMT: R ankle- 5/5 throughout; L ankle 5/5 throughout; R knee- 4+/5 throughout; L knee 4+/5 throughout; R hip- 4/5 throughout; L hip 4/5 throughout. Core strength- poor. GAIT: Pt. ambulates without AD 300ft. with antalgic pattern during L stance phase. Pt. has generalized flexed posture, L ankle EVR with increased pes planus during L stance phase, marked navicular drop during L stance phase. STAIRS: Pt. is able to negotiate with 2HR with step to pattern. Pt. reports increased LBP and L ankle pain with ascending and descending, descending is worse. - Goals Goal 1:: Pt. to be I with HEP. Goal Time Frame: 4-6 Weeks Goal 2:: Pt. to have increased BLE and core strength by 1/2 grade of all effected musculature. Goal Time Frame: 4-6 Weeks Goal 3:: Pt. to ambulate unlimited distances with 0-3/10 pain in L ankle/foot. Goal Time Frame: 4-6 Weeks Goal 4:: Pt. to ambulate unlimited distances with 0-2/10 LBP allowing for increased tolerance to community mobility. Goal Time Frame: 4-6 Weeks Goal 5:: Pt. to have increased lumbar ROM by 25% in all directions without increase in symptoms. Goal Time Frame: 4-6 Weeks - Rehabilitation Potential Physical Therapy Diagnosis: Pt. has signs and symptoms consistent with L sinus tarsitis, LBP and HNPP. Pt. reports increased pain with all WBing on LLE during gait, txs, stairs that limit her ability to complete more than grocery shopping. Pt. has increased LBP currently without mechanism of injury, without reduction with repeated motions. Pt. has marked BLE and core weakness. Pt. would benefit from Pt in aquatic setting to increase BLE strength, mobility, core strength to allow for increased tolerance to all functional mobility. Rehabilitation Potential: Fair - Anticipated Interventions Patient/Client Instruction: Educate patient on: Condition, Plan of Care, Risk Factors, Benefits of Fitness Program For the Purpose of:: To improve decision making, To facilitate caregiver knowledge, To improve self management, To prevent re-injury, To improve ability to perform tasks related to life management, To improve tolerance to ADL's Therapeutic Exercise to Include: Strength training, Power training, Endurance training, Balance training, Agility training, Body mechanics, Postural training, Flexibilty training, Gait and locomotor training, In an aquatic setting, Dynamic Lumbar Stabilization For the Purpose of:: To decrease pain, To increase ROM, To improve nutrient delivery to tissue, To increase oxygenation perfusion, To improve muscle performance and motor function, To improve ability to perform ADL's, To improve ability of physical actions for home/community/work/leisure, To improve gait and locomotor functions, To improve health of tissue, To decrease soft tissue restriction, To increase flexibility/ROM, To improve endurance, To improve balance, To improve safety with gait Thank you for the opportunity to evaluate your patient. For Medicare and Medicare HMO plans, please review the plan of care and approve it. It will need to be FAXED BACK to us at [phone] for Medicare purposes. Please let me know if there are questions or concerns regarding this plan of care. Physician Signature: Date: <Electronically signed by Kraig Chiu DPT> 03/17/18 1606 CC: Priscilla Mcdonald DPM; Oswaldo Ramsey MD CLS Signed For Medicare only, by signing this I certify the plan of care. Physicians Signature Date CNCO Observed: 01/18/2018 Status: COMPLETED Source: [place] 12:00 AM [facility] REPOSITORY Letter Text Stephanie Alcantar Allergy AND Clinical Immunology [facility] [address] [place] [address], [facility] [address] [address] January 18, 2018 Dear Stephanie Alcantar, Below you will find a list of CPT codes that are used for allergy testing. We recommend that you call your health insurance plan prior to your appointment date to verify that these tests are covered. When contacting your insurance to inquire about coverage at our office, please be sure that the insurance is aware that this will be billed as a Hospital Outpatient Setting. The codes are as follows: CPT 96726 - Skin Testing - Percutaneous Allergen Extracts CPT 11555 - Skin Testing - Intradermal Allergen Extracts If you are scheduled for the following breathing tests: CPT 74959 - Spirometry - Pre-bronchodilator CPT 16299 - Spirometry - Post-bronchodilator CPT 00322 - Exhaled Nitric Oxide CPT 02816 - Penicillin Testing Your health insurance plan may also request a diagnosis code. These are as follows: J30.1- Allergic Rhinitis J31.0 - Chronic Rhinitis J45.909 - Asthma The health insurance plan will inform you if you have either a co-payment due or if there is a deductible. The co-payment will be due at the time of the visit. Also, please bring your current health plan insurance card so it can be verified and updated in our system. Sincerely, Department of Allergy AND Clinical Immunology [facility] Instructions for Your Appointment If you are currently taking any of the following medications that contain antihistamines, stop taking the medication 5 days prior to your appointment: Susanna (fexofenadine) Clarinex (desloratadine) Claritin/Alavert (loratadine) Xyzal (levocetirizine) Zyrtec (cetirizine) Patanase (olopatadine hydrochloride) Atarax (hydroxyzine) Aller-Chlor/ChlorTabs (chlorpheniramine) Astelin nasal spray Astepro nasal spray Dymista nasal spray If you are taking Silenor (doxepin) or Elavil (amitriptyline), please stop 48 hours prior to appointment if prescribing physician allows. You may use Benadryl up to 48 hours prior to your appointment. If you are taking antihistamines for hives or rash, you may continue taking the antihistamine and the doctor will consider alternative testing if necessary. Please bring a list of medications that you are taking. Your appointment may last 1-2 hours. PROGRESS Observed: 12/30/2017 Status: COMPLETED Source: [place] 10:54 AM [facility] REPOSITORY HNO ID: [id number] Author: Ana Scott Service: (none) Author Type: Physician Coder Operator Type: Progress Notes Filed: 12/30/2017 11:19 AM Note Text: [facility], 12/30/17: INTERVAL HISTORY: The patient is here for follow up of asthma. Since the last Pulmonary Clinic visit, the patient has been seen in 4 times secondary to shortness of breath and wheezing following an URI. Has been on antibiotics and prednisone 4 different occasions. Just completed Amoxicillin and Prednisone taper. Patient states her daughter started daycare, and the entire house has been fighting infections/URI/ear infections all winter. The patient has been compliant with therapy recommended at the last visit. I have been so much better on Dulera, but when I get sick, my asthma gets bad until I take Prednisone. No cough. No wheezing. Exertional dyspnea. No nocturnal awakenings secondary to wheezing or dyspnea. Snores during the night. Witnessed episodes of apnea. Daytime fatigue. Unable to have sleep study done at home, however, secondary to special needs children in the home, requires home sleep study. Uses nebulizer if getting sick, otherwise, does not utilize nebulizer. 4-6 times daily rescue bronchodilator use. No disruption in taste or voice associated with use of inhaled corticosteroid. No tremor, palpitations, or muscle cramping associated with bronchodilator inhalation. PMH: Reviewed with patient today. No changes. FAMH: Reviewed with patient today. No changes. SOCH: No changes. ROS: General: Generally feels well. Appetite good. Weight stable. Eyes, Ears, nose, throat: No post nasal drip, rhinorrhea, purulent nasal discharge, epistaxis, hoarseness. Vision stable. Cardiac: No angina, edema, orthopnea. GI: No heartburn, dysphagia, diarrhea. 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 Musculoskeletal: No pain. Neuro: No headache, focal weakness, tremor. Skin: No rash. Otherwise negative. There is no immunization history on file for this patient. Allergies were verified and updated, and medications were reconciled with the patient at this visit. PHYSICAL EXAMINATION: BP 102/64 Pulse 71 Resp 19 Wt 270 lb (122.5kg) SpO2 98% Gen: No acute distress. Cooperative with examination. ENT: Sclerae clear. EOMI. Nares clear. Oral hygeine and dentition fair. Pharynx clear. No sign of oral thrush. Resp: No stridor, accessory respiratory muscle use, supra- sternal or intercostal retractions. No crackles, wheezes, rubs. CV: Regular rythm. Heart tones normal. Radial pulses normal. Abd: Non distended. MSK: No kyphoscoliosis, joint deformities. Ext: Warm and well perfused. No clubbing, cyanosis, edema. Skin: Color normal. Texture normal. No rash, eczema, urticaria. Neuro: Mental status normal. Affect normal. Muscle tone normal. No tremor. DATA REVIEW: ASTHMA CONTROL TEST Date: 12/30/2017 1. In the last 4 weeks, how much of the time did your asthma keep you from getting as much done at work or home that you wanted to do? Some of the time (3) 2. In the last 4 weeks, how often have you had shortness of breath? More than once per day (1) 3. In the last 4 weeks, how often did your asthma symptoms (wheezing, coughing, shortness of breath, chest tightness or pain) wake you up at night or earlier than usual? 2 or 3 nights per week (2) 4. In the last 4 weeks, how often have you used your rescue inhaler or nebulizer medication (such as Albuterol, Proventil, Ventolin, Maxair, Xoponex, or Primatene Mist)? 3 or more times per day (1) 5. In the last 4 weeks, how would you rate your asthma control? Somewhat controlled (3) Total: less than 15 IMPRESSION and RECOMMENDATIONS: 1. Asthma, late onset, severe persistent, not well controlled with ACT of 10. - Continue Dulera 2 puffs twice daily with aero chamber. Rinse afterwards. - Albuterol rescue inhaler, 2 puffs every 4 hours as needed for wheezing/shortness of breath. Sent to pharmacy. - Patient with multiple exacerbations in the past 6 months. Will check IgE, eosinophil count and RAST testing. Further recommendations to follow. - Referral to Dr. Mora. ? 2. Acute seasonal allergic rhinitis due to pollen. - Continue Singulair and Zyrtec. - Last allergy testing at age 11. At that time, received immunotherapy injections. - Will refer to Dr. Mora for further evaluation and recommendations. 3. Suspected BERLIN. - It is imperative that patient has a sleep study to evaluate/diagnose BERLIN and begin appropriate therapy. - I reviewed the pathophysiology of asthma, NIH guidelines for evaluation and management, and mechanisms of action and side effects of medical therapy (ICS, bronchodilators) with the patient. I addressed the questions of the patient, and she expressed understanding and acceptance of my answers. Ana Scott PA-C [facility] [address] [place] [address] CNOV Observed: 12/30/2017 Status: COMPLETED Source: [place] 10:30 AM [facility] REPOSITORY Office Visit (PULMWS) STEPHANIE ALCANTAR ([id number]) 1985 F Date Time Provider Department 12/30/17 10:30 AM ANA SCOTT During your visit today, we recorded the following information about you: Pulse Respiration Blood pressure Weight 71/minute 19/minute 102/64 122.5 kg Ana Scott PA-C 12/30/2017 11:19 AM Signed [facility], 12/30/17: INTERVAL HISTORY: The patient is here for follow up of asthma. Since the last Pulmonary Clinic visit, the patient has been seen in 4 times secondary to shortness of breath and wheezing following an URI. Has been on antibiotics and prednisone 4 different occasions. Just completed Amoxicillin and Prednisone taper. Patient states her daughter started daycare, and the entire house has been fighting infections/URI/ear infections all winter. The patient has been compliant with therapy recommended at the last visit. ANDquot;I have been so much better on Dulera, but when I get sick, my asthma gets bad until I take PrednisoneANDquot;. No cough. No wheezing. Exertional dyspnea. No nocturnal awakenings secondary to wheezing or dyspnea. Snores during the night. Witnessed episodes of apnea. Daytime fatigue. Unable to have sleep study done at home, however, secondary to special needs children in the home, requires home sleep study. Uses nebulizer if getting sick, otherwise, does not utilize nebulizer. 4-6 times daily rescue bronchodilator use. No disruption in taste or voice associated with use of inhaled corticosteroid. No tremor, palpitations, or muscle cramping associated with bronchodilator inhalation. PMH: Reviewed with patient today. No changes. FAMH: Reviewed with patient today. No changes. SOCH: No changes. ROS: General: Generally feels well. Appetite good. Weight stable. Eyes, Ears, nose, throat: No post nasal drip, rhinorrhea, purulent nasal discharge, epistaxis, hoarseness. Vision stable. Cardiac: No angina, edema, orthopnea. GI: No heartburn, dysphagia, diarrhea. 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 Musculoskeletal: No pain. Neuro: No headache, focal weakness, tremor. Skin: No rash. Otherwise negative. There is no immunization history on file for this patient. Allergies were verified and updated, and medications were reconciled with the patient at this visit. PHYSICAL EXAMINATION: BP 102/64 Pulse 71 Resp 19 Wt 270 lb (122.5kg) SpO2 98% Gen: No acute distress. Cooperative with examination. ENT: Sclerae clear. EOMI. Nares clear. Oral hygeine and dentition fair. Pharynx clear. No sign of oral thrush. Resp: No stridor, accessory respiratory muscle use, supra- sternal or intercostal retractions. No crackles, wheezes, rubs. CV: Regular rythm. Heart tones normal. Radial pulses normal. Abd: Non distended. MSK: No kyphoscoliosis, joint deformities. Ext: Warm and well perfused. No clubbing, cyanosis, edema. Skin: Color normal. Texture normal. No rash, eczema, urticaria. Neuro: Mental status normal. Affect normal. Muscle tone normal. No tremor. DATA REVIEW: ASTHMA CONTROL TEST Date: 12/30/2017 1. In the last 4 weeks, how much of the time did your asthma keep you from getting as much done at work or home that you wanted to do? Some of the time (3) 2. In the last 4 weeks, how often have you had shortness of breath? More than once per day (1) 3. In the last 4 weeks, how often did your asthma symptoms (wheezing, coughing, shortness of breath, chest tightness or pain) wake you up at night or earlier than usual? 2 or 3 nights per week (2) 4. In the last 4 weeks, how often have you used your rescue inhaler or nebulizer medication (such as Albuterol, Proventil, Ventolin, Maxair, Xoponex, or Primatene Mist)? 3 or more times per day (1) 5. In the last 4 weeks, how would you rate your asthma control? Somewhat controlled (3) Total: less than 15 IMPRESSION and RECOMMENDATIONS: 1. Asthma, late onset, severe persistent, not well controlled with ACT of 10. - Continue Dulera 2 puffs twice daily with aero chamber. Rinse afterwards. - Albuterol rescue inhaler, 2 puffs every 4 hours as needed for wheezing/shortness of breath. Sent to pharmacy. - Patient with multiple exacerbations in the past 6 months. Will check IgE, eosinophil count and RAST testing. Further recommendations to follow. - Referral to Dr. Mora. ? 2. Acute seasonal allergic rhinitis due to pollen. - Continue Singulair and Zyrtec. - Last allergy testing at age 11. At that time, received immunotherapy injections. - Will refer to Dr. Mora for further evaluation and recommendations. 3. Suspected BERLIN. - It is imperative that patient has a sleep study to evaluate/diagnose BERLIN and begin appropriate therapy. - I reviewed the pathophysiology of asthma, NIH guidelines for evaluation and management, and mechanisms of action and side effects of medical therapy (ICS, bronchodilators) with the patient. I addressed the questions of the patient, and she expressed understanding and acceptance of my answers. Ana Scott PA-C [facility] [address] [place] [id number] Ana Scott PA-C 12/30/2017 11:18 AM Signed 1. Asthma, late onset, severe persistent, not well controlled with ACT of 10. - Continue Dulera 2 puffs twice daily with aero chamber. Rinse afterwards. - Albuterol rescue inhaler, 2 puffs every 4 hours as needed for wheezing/shortness of breath. Sent to pharmacy. - Patient with multiple exacerbations in the past 6 months. Will check IgE, eosinophil count and RAST testing. Further recommendations to follow. - Referral to Dr. Mora. ? 2. Acute seasonal allergic rhinitis due to pollen. - Continue Singulair and Zyrtec. - Last allergy testing at age 11. At that time, received immunotherapy injections. - Will refer to Dr. Mora for further evaluation and recommendations. 3. Suspected BERLIN. - It is imperative that patient has a sleep study to evaluate/diagnose BERLIN and begin appropriate therapy. Referring Provider: ANA SCOTT [[id number]] Allergies As of Date: 12/30/2017 (No Known Allergies) Date Reviewed: 12/30/2017 Reviewed by: Ana Scott - Fully Assessed Reason for Visit: Established Patient [175] Cmt: 6 month follow up asthma Primary Visit Diagnosis:Severe persistent asthma without complication [J45.50] Other Visit Diagnosis:Environmental and seasonal allergies [J30.89] Order(s):CONSULT TO ALLERGY/IMMUNOLOGY [9001] Order #: [id number]: 1 ALGN TOPAZ GRP [SQGRTLKS] Order #: [id number] FUTURE IGE BLD [SQIGE] Order #: [id number] FUTURE EOSINOPHIL ABS COUNT [SQABEOS] Order #: [id number] FUTURE Prescriptions as of 12/30/2017 Sig: DULERA 200 MCG-5 MCG/ACTUATIO* inhale 2 puffs by mouth twice* MONTELUKAST 10 MG TABLET take 1 tablet by mouth at bed* VENTOLIN HFA 90 MCG/ACTUATION* inhale 2 puffs by mouth as di* CETIRIZINE 10 MG TABLET Take 1 tablet by mouth once d* SERTRALINE 50 MG TABLET Take 1 tablet by mouth once d* COMPOUNDED PRESCRIPTION NEBULIZER FOR HOME USE, AND S* IPRATROPIUM-ALBUTEROL 0.5 MG-* inhale contents of 1 vial jeannie* * ALBUTEROL SULFATE 2.5 MG/3 ML* Problem List As Of Date 12/30/2017 Noted Resolved 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 Asthma, late onset, severe persistent, not well controlled with ACT of 10. - Continue Dulera 2 puffs twice daily with aero chamber. Rinse afterwards. - Albuterol rescue inhaler, 2 puffs every 4 hours as needed for wheezing/shortness of breath. Sent to pharmacy. - Patient with multiple exacerbations in the past 6 months. Will check IgE, eosinophil count and RAST testing. Further recommendations to follow. - Referral to Dr. Mora. ? 2. Acute seasonal allergic rhinitis due to pollen. - Continue Singulair and Zyrtec. - Last allergy testing at age 11. At that time, received immunotherapy injections. - Will refer to Dr. Mora for further evaluation and recommendations. 3. Suspected BERLIN. - It is imperative that patient has a sleep study to evaluate/diagnose BERLIN and begin appropriate therapy. Disposition: Return in about 3 months (around 03/31/2018). Follow-up and Disposition History Recorded Encounter Status:Closed by ANA SCOTT on 12/30/17 ALLERGIES ALLERGIES DATE TYPE / CODE NAME / CODE REACTION SEVERITY SOURCE 08/21/2018 Drug No Known Unknown [facility] Allergy/416 Allergies/R64101 [facility] 091925(SNOM 0388(RXNORM) Repository ED CT) Drug NO KNOWN [facility] Class/61224 ALLERGIES Main [place] 1003(SNOMED Repository CT) ENCOUNTERS ENCOUNTERS ADMIT/DISCHARGE ACCOUNT ADMITTING ENCOUNTER LOCATION SOURCE NUMBER CLASS 08/24/2018 [id number] Ambulatory [facility] Repository 08/21/2018/08/21/20 [id number] Emergency [place] ding:ED Repository 08/19/2018/08/19/20 [id number] Ambulatory [address] Repository 08/18/2018 [id number] Ambulatory [address] [place] [address] Repository 08/17/2018/08/18/20 [id number] Emergency [address] Repository 08/17/2018/08/17/20 [id number] Ambulatory [address] Repository 08/16/2018/08/16/20 [id number] Ambulatory [address] Repository 08/16/2018/08/16/20 [id number] Ambulatory [address] Repository 08/15/2018/08/16/20 [id number] Ambulatory [address] Repository 08/14/2018/08/14/20 [id number] [facility] ding:ED Repository 08/01/2018/08/03/20 [id number] Ambulatory [address] Repository 07/21/2018 [id number] Ambulatory BMSBuilding: [place] [facility]MS[facility] Repository 05/11/2018 [id number] [facility] Rep[facility] 04/15/2018/04/15/20 [id number] Ambulatory [address] Repository 04/14/2018/04/15/20 [id number] Ambulatory [address] Repository 04/11/2018/04/11/20 [id number] [facility] ding:ED Repository 04/11/2018/04/13/20 [id number] Ambulatory [address] Repository 03/17/[id number] Repository 03/04/2018/03/04/20 [id number] Ambulatory [place] ding:PT Repository 12/30/2017/01/04/20 [id number] Ambulatory [address] Repository 09/07/2017/09/07/20 [id number] Ambulatory [address] ding:PT Repository PAYERS PAYERS ENCOUNTER GUARANTOR PAYER SUBSCRIBER SOURCE 08/24/2018 STEPHANIE Hernandez Primary [facility]: [facility] Number: [id number] Repository [place] [id number] [address], [place] Date:[place], [place] [address]Wcg: () Name:[facility] [address]: (hp) [address], [place] [phone] () [phone]: 08/21/2018 STEPHANIE Hernandez Primary STEPHANIE Hernandez [facility] Insurance:[facility]: [facility] Number: [id number] Hospital [address]Ovr: (244) [id number] Repository [phone] (HP) Date:2018-08-21[address]ATTN: [place] [address]IA: 08/21/2018 Secondary NOT GIVENUNK [place] Insurance:SELF PAY [facility] Number: Effective Repository Date:2018-08-21 08/18/2018 STEPHANIE C Primary STEPHANIE C [facility]: [facility] Number: [id number] Repository [place] [id number] [address] [place], [place] Date:[place], [place] [address]Esr: [phone]) Name:[facility] [address]Gny: () [address], [place] [phone] () [id number]: 08/14/2018 STEPHANIE Primary STEPHANIE C [place] [id number] [address] Insurance:[facility]: [facility] Number: [id number] Hospital [address]Ryk: (216) [id number] Repository [phone] (HP) Date:2018-08-14[address]ATTN: [place] [address]RU: 08/14/2018 Secondary NOT GIVENUNK [place] Insurance:SELF PAY [facility] Number: Effective Repository Date:2018-08-14 07/21/2018 STEPHANIE Primary STEPHANIE C [place] [id number] [address] Insurance:[facility]: [facility] Number: [id number] Hospital [address]Aug: (504) [id number] Repository [phone] (HP) Date:2018-06-24[address]ATTN: [place] [address]EJ: 07/21/2018 Secondary NOT GIVENUNK [place] Insurance:SELF PAY [facility] Number: Effective Repository Date:2018-07-14 05/11/2018 STEPHANIE BLAIR Primary STEPHANIE MACARIOB: [place] GRAJEDA, Insurance:CARESOURCEP [id number] Health [address]Akp: olicy Number: Hospital [id number] Repository (HP) Date:2018-04-29[address]ATTN: [place] [address]LG: 05/11/2018 Secondary NOT GIVENUNK [place] Insurance:SELF PAY [facility] Number: Effective Repository Date:2018-04-29 04/11/2018 STEPHANIE [id number] Primary STEPHANIE MACARIOB: [place] HANLEY KIERSTENROLANDO, Insurance:CARESOURCEP [id number] Health [address]Rxe: olicy Number: [facility] [id number] Repository (HP) Date:2018-04-11[address]ATTN: [place] [address]IQ: 04/11/2018 Secondary NOT GIVENUNK [place] Insurance:SELF PAY [facility] Number: Effective Repository Date:2018-04-11 03/17/2018 STEPHANIE Daivd Primary STEPHANIE Hernandez Kezia MACARIOB: Insurance:CaresourceP [facility]: [facility] olicy Number: [id number] Repository [place] [id number] [facility] [place], [place] Date:[place], [place] [address]Rsz: [phone]) Name:[facility] [address] [address]Jfm: () [address], [place] [phone] () [id number]: 03/04/2018 STEPHANIE [id number] Primary STEPHANIE MACARIOB: [place] HANLEY KIERSTENROLANDO, Insurance:CARESOURCEP [id number] [facility] [address]Lkq: olicy Number: [facility] [id number] Repository (HP) Date:2013-03-20[address]ATTN: [place] [address]IA: 03/04/2018 Secondary NOT GIVENUNK [place] Insurance:SELF PAY [facility] Number: Effective Repository Date:2018-01-20 09/07/2017 STEPHANIE [id number] Primary STEPHANIE GONZALES: [place] HANLEY LNWOOSTDELFINA, Insurance:CARESOURCEP [id number] [facility] [address]Nnj: olicy Number: [facility] [id number] Repository (HP) Date:2013-03-20[address]ATTN: [place] [address]UP: 09/07/2017 Secondary NOT GIVENUNK [place] Insurance:SELF PAY [facility] Number: Effective Repository Date:2017-07-27
== END 2018-08-21 23:47 | disposition home or self-care (01) ==
PROVIDERS: Emergency Provider Emergency Medicine; Family Provider Family Medicine; PCP Family Medicine
DX: S91.311A Laceration without foreign body, right foot, initial encounter (principal); G60.9 Hereditary and idiopathic neuropathy, unspecified; Z87.891 Personal history of nicotine dependence; Z79.899 Other long term (current) drug therapy
CPT/HCPCS: 12002; 99282

== ENCOUNTER 2019-06-13 10:49 | Day surgery (SDC) | payer MEDICAID, SELFPAY ==
[2019-06-13] VITALS (7 sets, daily range): BP systolic 108–131; BP diastolic 70–90; PULSE 68–79; RESP 16–18; TEMP 36.2–36.6; O2SAT 73–100; BMI 39.8
--- NOTE | 2019-06-13 | GASB_PTH ---
PATIENT: GALINA ALCANTAR LOC: EN U#:[id number] AGE/SX: 33/F ROOM: RE06/13/[address]: Dr. Narcisa Braga MD : 1985 BED: DIS: 06/13/2019 SPEC #: [id number] RECD: 06/13/19 13:58 STATUS: MEREDITH SAUCEDO #: [id number] JEWELS: 06/13/19 00:[address]: Narcisa Braga DEPT: SURGICAL PATHOLOGY RECD BY: Lambert Enriquez ENTERED: 06/13/19 13:58 SP TYPE: Gastric Bx OTHR DR: Dr. Oswaldo Ramsey MD Tissues: A - Gastric mucous membrane B - Cecum, NOS C - COLON BIOPSY Procedures: Surgery Specimen Level IV HEADER OPERATION: Colonoscopy, EGD ([facility]) PRE-OP DIAGNOSIS: LUQ pain, nausea, altered bowel habits TISSUE SUBMITTED: A - Antral biopsy for H. pylori and pathology, B - Cecal polyp biopsy, C - Random colon biopsies MICROSCOPIC DIAGNOSIS A. Gastric antrum, biopsy: Minimal chronic inflammation. See comment. B. Cecal polyp, biopsy: Mild acute colitis. See microscopic description. C. Colon, random biopsy: No pathologic change. AM:michael 06/14/19 COMMENT A. The results of immunohistochemistry for Helicobacter pylori will be reported separately ([id number]). MICROSCOPIC DESCRIPTION Slides are reviewed. B. Sections show rare neutrophils and glandular epithelium. Neither hyperplastic change nor adenomatous change is identified. Clinical correlation is suggested. GROSS DESCRIPTION A - Received in fixative is one container labeled with the patient's name and designated antral biopsy. The specimen consists of two irregular fragments of light aj soft tissue that in aggregate measure 0.6 x 0.3 x 0.1 cm. The specimen is totally submitted in one cassette. B - Received in fixative is one container labeled with the patient's name and designated cecal polyp. The specimen consists of one irregular fragment of light aj soft tissue that measures 0.1 x 0.1 x <0.1 cm. The specimen is totally submitted in one cassette. C - Received in fixative is one container labeled with the patient's name and designated random colon biopsy. The specimen consists of multiple irregular fragments of light aj soft tissue that in aggregate measure 1 x 0.6 x 0.1 cm. The specimen is totally submitted in one cassette. / AM:michael 06/13/19 TC:3 CPT: 27103 x3
[2019-06-13 11:12] LABS: Internal QC Validated? YES +Cl - CLEAR BKGD; Pregnancy, Urine Negative Negative
--- NOTE | 2019-06-13 11:15 | HP.PCM_ITS ---
History and Physical Date of Admission: 06/13/19 Stephanie Flores is a 33 year old female who is a consultation requested by Dr. Ramsey for an opinion regarding LUQ pain and altered bowel habits. My final recommendations will be communicated back to the requesting physician by way of shared Medical record. The patient has not been seen previously. The patient denies a family history of colon cancer.. The patient was seen by Dr. Ramsey on 02/25/19, leading to this consultation. That note has been reviewed and part as follows: Pain - Continues to have pain, left sided abdominal pain, rancid reflux that tastes like poop, she is bloated with BM being very irregular fluctuating between loose, thin or pebble like. Pain has been recurrent in LUQ; had CT ordered two months ago that was never completed. She feels that she is swollen with pressure in the LUQ. Component Latest Ref Rng & Units 03/08/2019 Glucose 74 - 99 mg/dL 99 BUN 7 - 21 mg/dL 12 Creatinine 0.58 - 0.96 mg/dL 0.97 (H) Sodium 136 - 144 mmol/L 139 Potassium 3.7 - 5.1 mmol/L 4.0 Chloride 97 - 105 mmol/L 104 CO2 22 - 30 mmol/L 27 Anion Gap mmol/L 8 Calcium 8.5 - 10.2 mg/dL 9.6 eGFR- >60 eGFR-All Other Races . >60 CT abd/pelvis 03/09/19 RESULT: Abdomen / Pelvis: Liver: Unremarkable. Fatty infiltration. Biliary: The gallbladder is nondistended. No calcified stones within it. No biliary dilatation is seen. Spleen: No splenomegaly. Pancreas: Unremarkable. Adrenals: No mass. Kidneys: No calculus, hydronephrosis or finding to suggest a cyst or mass in the unenhanced kidney. GI Tract: No bowel dilation. Lymph Nodes: No lymphadenopathy. Mesentery/peritoneum: No ascites. Retroperitoneum: No mass. Vasculature: The aorta is normal in caliber. Pelvis: No mass or ascites. IUD within the uterus. Bones/Soft Tissues: No acute abnormality. Lower thorax: Unremarkable. IMPRESSION: No evidence of acute process within the abdomen or pelvis Fatty infiltration of the liver Subjective The patient presents today reporting everything came on last July. The patient reports LUQ pain. She tells me I have loose stools most of the time. Her stools are urgent. If it's formed it will be in ribbons. She takes tumeric. I have asked her to stop taking it as it can cause GI issues. She tells me that she has a problem with gas. Avoiding onions. Trying to stay away from gassy foods. She tells me that her father has IBS. Her mother has diverticulosis. She tells me that she saw ENT and was prescribed omeprazole. She picked up the prescription, but her told her not to take it. He gives her apple cider vinegar instead. She tells me that her house is gluten free. She is pretty much dairy free except yogurt and cheese. She has a dry mouth. Has sleep apnea, but can't use the CPAP. PAST MEDICAL HISTORY ? Anxiety and depression ? Asthma ? 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 IUD (intrauterine device) in place 01/23/14 Mirena ? Neuropathy (HCC) ? BERLIN (obstructive sleep apnea) Severe, AHI 85 on 05/11/18 PSG [facility] ? PTSD (post-traumatic stress disorder) PAST SURGICAL HISTORY ? DEL W/ ANTE/POST CARE x 3 last 05/07/2016 ? CORRECTION OF BUNION Left 2012 ? TONSILLECTOMY HX FAMILY HISTORY ? Hypertension Father ? Asthma Mother ? Asthma Sister ? Asthma Brother CURRENT MEDICATIONS ? cyclobenzaprine (FLEXERIL) 10 mg tablet Take 1 tablet by mouth daily at bedtime. 30 tablet 5 ? albuterol HFA (VENTOLIN HFA) 90 mcg/actuation inhaler INHALE 2 PUFFS BY MOUTH EVERY 4 HOURS IF NEEDED 18 g 6 ? sertraline (ZOLOFT) 50 mg tablet Take 1 tablet by mouth once daily. 30 tablet 5 ? predniSONE (DELTASONE) 10 mg tablet Take 2 pills daily for 2 weeks, then take 1 1/2 pills daily for 2 weeks 60 tablet 2 ? predniSONE (DELTASONE) 10 mg tablet Take 40 mg daily for 5 days, then take 20 mg daily for 5 days, then take 10 mg daily 60 tablet 1 ? elderberry fruit (ELDERBERRY ORAL) Take by mouth once daily. ? cholecalciferol, vitamin D3, (VITAMIN D3 ORAL) Take by mouth once daily. ? montelukast (SINGULAIR) 10 mg tablet take 1 tablet by mouth at bedtime 30 tablet 11 ? mometasone-formoterol (DULERA) 200-5 mcg/actuation inhaler Inhale 2 Puffs as instructed twice daily. 1 Inhaler 11 ? cetirizine (ZYRTEC) 10 mg tablet Take 1 tablet by mouth once daily. 30 tablet 11 ? Nebulizer NEBULIZER FOR HOME USE, AND SUPPLIES. DX: J45.909 ? ipratropium-albuterol (DUONEB) 0.5 mg-3 mg(2.5 mg base)/3 mL nebu inhale contents of 1 vial every 6 hours in nebulizer if needed for wheezing ? ALBUTEROL 2.5 mg /3 mL (0.083 %) nebulizer solution SOCIAL HISTORY: She quit smoking tobacco less than one year ago. She smokes cannabis regularly, using a volcano and bag Stephanie reports her alcohol use as rarely. Review of Systems Constitutional: Negative for appetite change and unexpected weight change. HENT: Positive for mouth sores and trouble swallowing (for years. Saw ENT). Eyes: Negative. Respiratory: Negative for cough, shortness of breath and wheezing. Asthma Cardiovascular: Negative for chest pain and palpitations. Gastrointestinal: Positive for abdominal distention, abdominal pain, constipation, diarrhea, nausea and vomiting. Negative for anal bleeding and blood in stool. Endocrine: Negative. Genitourinary: Has an IUD Musculoskeletal: Positive for arthralgias and back pain. Allergic/Immunologic: Negative for environmental allergies, food allergies and immunocompromised state. Neurological: Positive for tremors. Negative for seizures. HNPP Hematological: I bleed easy Psychiatric/Behavioral: The patient is nervous/anxious. PTSD Objective Blood pressure 114/74, pulse 87, height 175.3 cm (5' 9), weight 125.2 kg (276 lb), unknown if currently . Physical Exam Constitutional: She is oriented to person, place, and time. She appears well- developed and well-nourished. No distress. HENT: Head: Normocephalic and atraumatic. Mouth/Throat: Oropharynx is clear and moist. Eyes: Conjunctivae are normal. No scleral icterus. Neck: Neck supple. No tracheal deviation present. Cardiovascular: Normal rate, regular rhythm, normal heart sounds and intact distal pulses. No murmur heard. Pulmonary/Chest: Effort normal and breath sounds normal. No respiratory distress. Abdominal: Soft. Bowel sounds are normal. She exhibits no distension and no mass. There is tenderness (mild tenderness along lower left rib border). There is no rebound and no guarding. Musculoskeletal: She exhibits no edema. Lymphadenopathy: She has no cervical adenopathy. Neurological: She is alert and oriented to person, place, and time. Skin: Skin is warm and dry. She is not diaphoretic. Psychiatric: She has a normal mood and affect. Her behavior is normal. Judgment and thought content normal. Nursing note and vitals reviewed. Assessment and Plan upper abd pain 2)nausea 3)altered bowel habits Labs today. She is to stop tumeric. The patient will be scheduled for an upper endoscopy as well as a colonoscopy. She will require MAC. Preparation for the procedures, using GoLytely as the laxative, have been explained in detail. The risks, benefits, anticipated outcomes and possible complications were mentioned. I explained the procedure in understandable terms and the patient was given printed material concerning the planned procedure. The patient had the opportunity to ask questions concerning the planned procedure. The patient freely consents to the planned procedure. The patient is encouraged to call with any questions or concerns, or should there be any change in health status between now and the scheduled procedure. I have personally interviewed and examined this patient. I have read the information that the MA documented in this encounter. I spent 30 minutes in the visit, with more than 50% of the total [id number] time of the visit in counseling / coordination of care. Please follow the provided instructions for upper endoscopy and colonoscopy. You will be using GoLytely as the laxative during the preparation. You may start the laxative as early as 1:00 in the afternoon. Your procedures will be with the deeper sedation we call MAC. Dr. Braga will do the procedures for us. Kalyani Downey, DIRECTOR EXPERIMENTAL MEDICINE
[2019-06-13] MEDS: Lactated Ringers 1,000 ML 100 ML IV (11:22)
--- NOTE | 2019-06-13 12:00 | IMM_PTH ---
PATIENT: GALINA ALCANTAR LOC: EN U#:[id number] AGE/SX: 33/F ROOM: RE06/13/[address]: Dr. Narcisa Braga MD : 1985 BED: DIS: 06/13/2019 SPEC #: [id number] RECD: 06/14/19 10:43 STATUS: MEREDITH REQ #: [id number] JEWELS: 06/13/19 12:[address]: Narcisa Braga DEPT: IMMUNOHISTOCHEMISTRY RECD BY: Sweta Barger ENTERED: 06/14/19 10:44 SP TYPE: IMMUNO OTHR DR: Dr. Oswaldo Ramsey MD Tissues: A - Stomach, NOS Procedures: H Pylori (initial) PHYSICIAN & INSTITUTION [place] [id number] SPECIMEN INFORMATION: Tissue Source: A - Antral biopsy Clinical Info: LUQ pain, nausea, altered bowel habits Specimen Number: [id number] CPT code: 95069 METHODOLOGY: Deparaffinized sections of prefer/formalin-fixed tissue or PAP/DQ stained slides are incubated with monoclonal/polyclonal antibodies/oligonucleotide probes. Localization is made via biotin free immunoperoxidase method. Appropriate controls are performed and reacted as expected. Results on target cell population are indicated in the following table: RESULTS: ANTIBODY / CLONE RESULT Block A H Pylori (polyclonal) negative These tests were developed and their performance characteristics determined by [facility]. They may not have been cleared or approved by the U.S. Food and Drug Administration. The FDA has determined that such clearance or approval is not necessary. INTERPRETATION: A. Antral biopsy: Negative for Helicobacter pylori organisms. AM:michael 06/15/19
--- NOTE | 2019-06-13 12:11 | SUR.OPER ---
PT'S IV INFILTRATED. PT. AWAKENED COMBATIVE. EGD STOPPED. NEW IV STARTED BY ANESTHESIA. OLD IV DC'D. DR. WHITTAKER TO RESUME EGD.
--- NOTE | 2019-06-13 12:42 | OP.ENDO_ITS ---
06/13/2019 Oswaldo Ramsey [address] [place] [address] Re : Upper GI endoscopy procedure for Stephaniemarco antonio Flores Dear Dr. Ramsey This procedure was performed on Thursday, June 13, 2019. My impressions and recommendations are as follows: Impressions : - Normal first portion of the duodenum and second portion of the duodenum. Bile noted in bulb. - Normal stomach. Biopsied for histology and H pylori - Normal esophagus - no hiatal hernia noted, no reflux noted. Recommendations : - Discharge patient to home (ambulatory). - Resume previous diet. - Continue present medications. - Await pathology results. - Return to nurse practitioner, Kalyani Downey in 1-2 week, to discuss pathology results. My findings are described in the full procedure note, which is enclosed. If I can be of further assistance, please feel free to contact me at Doctor phone number(s): , Work: . Sincerely, MD Narcisa Paz MD 06/13/2019 12:41:41 PM This report has been signed electronically.
--- NOTE | 2019-06-13 12:45 | OP.ENDO_ITS ---
06/13/2019 Oswaldo Ramsey [address] [place] [address] Re : Colonoscopy procedure for Stephanie Sandra Dear Dr. Ramsey This procedure was performed on Thursday, June 13, 2019. My impressions and recommendations are as follows: Impressions : - The entire examined colon is normal. Biopsied. - Non-bleeding external and internal hemorrhoids. Recommendations : - Repeat colonoscopy as per ACS guidelines for screening for colon cancer. - Return to nurse practitioner, Kalyani Downey, in 1-2 week to discuss results.. - Continue present medications. My findings are described in the full procedure note, which is enclosed. If I can be of further assistance, please feel free to contact me at Doctor phone number(s): , Work: . Sincerely, MD Narcisa Paz MD 06/13/2019 12:45:07 PM This report has been signed electronically.
== END 2019-06-13 13:27 | disposition home or self-care (01) ==
LOC: EN 10:50 → AC 10:51
PROVIDERS: Anesthesiology; Family Provider Family Medicine; PCP Family Medicine; Referring Provider Family Medicine; Visit Provider Surgery
PROC: 0DJD8ZZ Inspection of Lower Intestinal Tract, Via Natural or Artificial Opening Endoscopic (ICD-10-PCS; CPT 45378; principal; 2019-06-13 11:55)
DX: D12.0 Benign neoplasm of cecum (principal); K52.9 Noninfective gastroenteritis and colitis, unspecified; K64.4 Residual hemorrhoidal skin tags; K64.8 Other hemorrhoids; I10 Essential (primary) hypertension; G60.9 Hereditary and idiopathic neuropathy, unspecified; J45.909 Unspecified asthma, uncomplicated; G47.33 Obstructive sleep apnea (adult) (pediatric); F43.10 Post-traumatic stress disorder, unspecified; F32.9 Major depressive disorder, single episode, unspecified; F41.9 Anxiety disorder, unspecified; Z79.899 Other long term (current) drug therapy; Z87.891 Personal history of nicotine dependence; Z97.5 Presence of (intrauterine) contraceptive device
CPT/HCPCS: 43239; 45380; 81025; 88305; 88342; J7050; J7120; J2405

== ENCOUNTER → 2021-02-25 20:21 | Outpatient (CLI) | payer MEDICAID, SELFPAY ==
[2019-06-13 11:05] VITALS: BMI 39.8
== END ==
PROVIDERS: PCP Family Medicine; Referring Provider Psychiatry & Neurology Sleep Medicine; Visit Provider Psychiatry & Neurology Sleep Medicine
DX: G47.33 Obstructive sleep apnea (adult) (pediatric) (principal)
CPT/HCPCS: 95811

== ENCOUNTER 2021-03-01 12:24 | Emergency (ER) | payer MEDICAID, SELFPAY ==
[2019-06-13 11:05] VITALS: BMI 39.8
[2021-03-01 12:24] VITALS: BP 157/99; PULSE 87; RESP 16; TEMP 36.3; O2SAT 97; BMI 41.9
--- NOTE | 2021-03-01 12:52 | RAD_ITS ---
EXAM: XR CHEST, 1 VIEW : 1985 CLINICAL INDICATION: chest pain TECHNIQUE: Frontal view of the chest. This report was created using [employer] report generation technology. COMPARISON: 08/14/2018 FINDINGS: LUNGS AND PLEURAL SPACES: Unremarkable. No consolidation or edema. No pneumothorax. No effusion. HEART: Unremarkable. Cardiac silhouette not enlarged. MEDIASTINUM: Central airways and mediastinal contour are unremarkable. BONES/JOINTS: Unremarkable. SOFT TISSUES: Unremarkable. RAD/Chest 1 View (Portable) IMPRESSION: No radiographic evidence of acute cardiopulmonary disease. at 1353 Reported and signed by: Hieu Marquez MD Electronically Signed: Hieu Marquez MD at 13:52 EDT Tel , Service support ,
--- NOTE | 2021-03-01 12:52 | EKG12_ITS ---
Test Reason : CP Blood Pressure : / mmHG Vent. Rate : 074 BPM Atrial Rate : 074 BPM P-R Int : 160 ms QRS Dur : 064 ms QT Int : 382 ms P-R-T Axes : 055 058 056 degrees QTc Int : 424 ms Normal sinus rhythm Normal ECG Confirmed by NAN BAH, HENRY ([id number]), editor trade journal SHERLY LEWIS ([id number]) on 03/06/2021 9:23:22 AM Referred By: RUSS/WALTER Confirmed By:HENRY MONTANA MD
--- NOTE | 2021-03-01 13:01 | EX.ED.DYSGE1 ---
HPI History of Present Illness Chief Complaint: Chest Pain Informant: patient Narrative Narrative: Patient is a 35-year-old female who presents to the emergency department for multiple complaints. She states that she had a sleep study performed recently. Since then she has had right-sided neck discomfort as well as chest pain. The chest pain is exacerbated by going outside. It feels like something is pushing on her chest whenever she goes into the heat. She has been having right arm numbness. She has seen her PCP before in the past for this. Is been ongoing issue for her but recently flared up over the past 2 weeks. She denies any headache or vision changes. She has had issues with using CPAP/BiPAP before. She her PCP put her on prednisone to help with the throat discomfort. She denies any painful swallowing. No issues handling secretions. No cough or fever/chills. She always feels short of breath and does not feel worse than normal. No leg swelling or calf pain. No abdominal pain. No change in moving bowels or urinary symptoms. [facility] Medical History (Updated 03/01/21 @ 15:[address] Ozzie Duffy, ) Arthritis bunyan removal Carpal tunnel syndrome on both sides Environmental allergies Frequent headaches History of emotional problems Hypertension Home Medications cetirizine 10 mg PO DAILY 12/10/15 [History Last Taken 06/13/19] montelukast 10 mg PO DAILY 12/10/15 [History Last Taken 05/07/16 05:50] albuterol sulfate 2.5 mg INHALATION Q4HWA.RT PRN 04/30/16 [History Last Taken 05/07/16 05:00] sertraline 50 mg PO DAILY 08/21/18 [History Last Taken 06/13/19] albuterol sulfate 1 - 2 puff INHALATION Q4H PRN PRN 06/12/19 [History Last Taken 06/13/19] amitriptyline 10 mg PO QHS 06/12/19 [History Last Taken Unknown] cyclobenzaprine 10 mg PO QHS 06/12/19 [History Last Taken Unknown] mometasone-formoterol 2 puff IH BID 06/12/19 [History Last Taken Unknown] prednisone 5 mg PO DAILY 06/12/19 [History Last Taken 06/13/19] Allergy/AdvReac Type Severity Reaction Status Date / Time No Known Allergies Allergy Verified 03/01/21 12:24 Family History Grandmother Anxiety Arthritis Mother Anxiety Asthma Arthritis Depression (emotion) Father Hypertension Depression (emotion) Brother Depression (emotion) Suicidal intent Surgical History History of tonsillectomy and adenoidectomy Social History number of children: 3 current occupational status: unemployed Smoking Status: Former smoker alcohol intake: current alcohol intake frequency: 0-2 drinks per day Alcohol type: wine details: Social substance use type: does not use caffeine: Yes eating out: 4 or more times/week during the past year weight has: increased > 10 lbs what type of physical activity do you participate in: none ROS ROS ED Constitutional Constitutional ED: Denies chills or fever(s) Eyes Eyes: Denies change in vision ENT ENT ED: Reports neck pain; Denies epistaxis, hoarseness, neck mass, rhinorrhea, sore throat or throat swelling Cardiovascular Cardiovascular: Denies palpitations Respiratory/Chest Respiratory/Chest: Reports dyspnea Gastrointestinal Gastrointestinal: Denies abdominal pain, diarrhea, nausea or vomiting Genitourinary Genitourinary ED: Denies dysuria, hematuria or urinary frequency Musculoskeletal Musculoskeletal: Denies back pain Integumentary Denies rash Neurologic Neurologic: Denies dizziness, headache(s) or weakness EXAM Physical Exam Const Vital Signs: 03/01/21 12:24 03/01/21 13:36 03/01/21 14:16 Temperature 97.4 F L Temperature Source Temporal Pulse Rate 87 83 77 Respiratory Rate 16 16 16 Blood Pressure 157/99 H 151/100 H 162/105 H Blood Pressure Mean 118 117 124 Pulse Ox 97 95 98 Oxygen Delivery Method Room Air 03/01/21 15:23 Temperature Temperature Source Pulse Rate Respiratory Rate Blood Pressure 149/101 H Blood Pressure Mean 117 Pulse Ox Oxygen Delivery Method Positive well nourished and well developed General Appearance ED: well developed and NAD HEENT Reports normocephalic, head/scalp atraumatic, TM's clear and moist mucous membranes HEENT Narrative: Neck is nontender. No masses. No crepitus. No overlying skin changes. Clear oropharynx. No stridor present. Tympanic Membrane ED: Yes TM's clear Eyes PERRL and EOMs intact bilaterally Neck no lymphadenopathy and supple Chest Wall inspection of chest normal Resp normal respiratory effort and clear to auscultation bilaterally Auscultation: Negative for rales, rhonchi or wheezes Cardio regular rate, regular rhythm and no murmurs GI normal to inspection, nondistended, normoactive bowel sounds and non-tender Palpation: soft; Negative for guarding or rebound tenderness present Back/Spine no CVA tenderness Extremity normal to inspection General Extremety ED: Negative for edema or tenderness General Extremity: Negative for edema Neuro oriented x3, CN's II-XII intact bilaterally and no sensory deficits noted Sensorium / Orientation: alert Motor Exam: strength 5/5 throughout Psych mental status grossly normal Skin no rashes or lesions noted MDM MDM MDM Narrative Medical decision making narrative: Patient presents to the emergency department for chest pain and right-sided neck pain. This was after getting a sleep study test. She is supposed to be on this but does not sound like he tolerates it very well because she gets the symptoms afterward. Walking out into the heat seems to aggravate her symptoms. Upon arrival to the emerge department vital signs within normal limits. She is a benign physical exam. EKG obtained as well as chest x-ray and basic lab work. Patient's work-up did not reveal any significant acute abnormality. She has been stable throughout ED stay. She is up walking around. This does not exacerbate her symptoms. Oral and neck exam is benign. No obvious infection. Chest x-ray is negative for acute cardiopulmonary abnormality. This time she can continue to take her prednisone. She has had these symptoms before with CPAP use in the past. Patient's work-up did not reveal any significant acute abnormality. Recommend she continue her course of prednisone. She could have some inflammation from the sleep study test although I did not appreciate any significant swelling or abnormality on neck and mouth exam. At this time she is stable for discharge. She is to have close follow-up with her PCP. Return precautions are reviewed including inability to handle secretions, developing shortness of breath. She understands and is agreeable to plan. All questions answered. Lab Data Labs: Laboratory Results - last 24 hr 03/01/21 03/01/21 03/01/21 13:07 13:07 13:07 WBC 11.8 H RBC 5.08 Hgb 13.8 Hct 43.3 MCV 85.2 MCH 27.2 MCHC 31.9 L RDW Std Deviation 43.1 RDW Coeff of Hector 13.9 Plt Count 309 MPV 11.7 Immature Gran % (Auto) 0.600 Neut % (Auto) 91.8 H Lymph % (Auto) 5.7 L [place] % (Auto) 1.4 Eos % (Auto) 0.2 Baso % (Auto) 0.3 Absolute Neuts (auto) 10.8 H Absolute Lymphs (auto) 0.67 L Nucleated RBC % 0 Sodium 138 Potassium 4.2 Chloride 107 Carbon Dioxide 24.0 Anion Gap 7 BUN 20 H Creatinine 1.01 Estim Creat Clear Calc 80.47 Est GFR (MDRD) Af Amer 80 Est GFR (MDRD) Non-Af 66 BUN/Creatinine Ratio 19.8 Glucose 123 H Calcium 9.2 Magnesium 2.2 Troponin I < 0.015 Serum , Qual NEGATIVE Radiography Diagnostic Testing: Radiology Impression Chest X-Ray 03/01/21 12:52 IMPRESSION: No radiographic evidence of acute cardiopulmonary disease. at 1353 Reported and signed by: Hieu Marquez MD Electronically Signed: Hieu Marquez MD at 13:52 EDT Tel , Service support , EKG Initial EKG: Attestation: I personally reviewed and interpreted this EKG as follows: (Rate of 74 bpm and normal sinus rhythm. Normal intervals. Normal axis. No significant ST elevations or depressions. No T wave abnormalities) Discharge Plan Triage Chief Complaint: Chest Pain ED Provider: Ozzie Duffy Dx/Rx/DC Orders Clinical Impression: Chest pain, Neck pain Instructions: ED Chest Pain, Noncardiac Prescriptions: No Action montelukast 10 MG tablet 10 mg PO DAILY RF: 0 cetirizine 1 MG/ML solution 10 mg PO DAILY RF: 0 albuterol sulfate 2.5 MG/3 ML solution for nebulization 2.5 mg INHALATION Q4HWA.RT PRN (Reason: Sob &/Or Wheezing) RF: 0 sertraline 50 MG tablet 50 mg PO DAILY RF: 0 cyclobenzaprine 10 MG tablet 10 mg PO QHS RF: 0 amitriptyline 10 MG tablet 10 mg PO QHS RF: 0 albuterol sulfate 1 INHALER inhaler 1 - 2 puff inhalation Q4H PRN PRN (Reason: Sob &/Or Wheezing) RF: 0 mometasone-formoterol 13 GM HFA aerosol inhaler 2 puff IH BID RF: 0 prednisone 20 MG tablet 5 mg PO DAILY RF: 0 Primary Care Provider: Oswaldo Ramsey Referrals: Oswaldo Ramsey MD [Primary Care Provider] - 2 Days Disposition Disposition: Home, self care Discharge Date/Time: 03/01/21 15:24
[2021-03-01 13:19] LABS: Absolute Lymphocyte Count 0.67 X10^3/uL (0.83-4.51); Absolute Neutrophil Count 10.8 X10^3/uL (2.0-7.7); Basophil# 0.04 X10^3/uL; Basophil% 0.3 % (0-1); Eosinophil# 0.02 X10^3/uL; Eosinophils% 0.2 % (0-5); Hematocrit 43.3 % (37-47); Hemoglobin 13.8 g/dL (12.0-15.0); Lymphocyte # 0.67 X10^3/ul (0.83-4.51); Lymphocyte % 5.7 % (19-41); Mean Corp Hgb Conc 31.9 g/dL (32-36); Mean Corpuscular Hgb 27.2 pg (27.0-32.0); Mean Corpuscular Volume 85.2 fL (81-99); Mean Platelet Vol. 11.7 fl (6.2-12.0); Monocyte# 0.17 X10^3/uL; Monocyte% 1.4 % (0-10); NRBC Flagged by Analyzer 0 % (0-5); Neutrophil # 10.83 X10^3/uL (2.7-7.7); Neutrophil % 91.8 % (47-70); Platelet Count 309 K/mm3 (150-450); RBC Distribution Width CV 13.9 % (11.6-14.6); RBC Distribution Width SD 43.1 fl (35.1-43.9); Red Blood Count 5.08 M/mm3 (4.2-5.4); White Blood Count 11.8 K/mm3 (4.4-11.0)
[2021-03-01 13:36] VITALS: BP 151/100; PULSE 83; RESP 16; O2SAT 95
[2021-03-01 13:38] LABS: Internal QC Validated? YES +Cl - CLEAR BKGD; Pregnancy, Serum, hCG Quali. NEGATIVE Negative
[2021-03-01 13:49] LABS: Anion Gap 7 (5-15); BUN 20 mg/dL (7-18); BUN/Creat Ratio 19.8 RATIO (10-20); Calcium,Total 9.2 mg/dL (8.5-10.1); Chloride 107 mmol/L (98-107); Creatinine, Serum 1.01 mg/dL (0.55-1.02); EST Glomerular Filtration Rate 66 mL/min (>60); Est Glom Filt Rate - Afr Amer 80 mL/min (>60); Estimated Creatinine Clearance 80.47 ml/min; Glucose 123 mg/dL (74-106); Magnesium 2.2 mg/dL (1.6-2.6); Potassium 4.2 mmol/L (3.5-5.1); Sodium Level 138 mmol/L (136-145)
[2021-03-01 14:16] VITALS: BP 162/105; PULSE 77; RESP 16; O2SAT 98
[2021-03-01 15:23] VITALS: BP 149/101
== END 2021-03-01 15:24 | disposition home or self-care (01) ==
PROVIDERS: Emergency Provider Emergency Medicine; PCP Family Medicine
DX: R07.9 Chest pain, unspecified (principal); M54.2 Cervicalgia; M19.90 Unspecified osteoarthritis, unspecified site; I10 Essential (primary) hypertension; Z79.51 Long term (current) use of inhaled steroids; Z79.52 Long term (current) use of systemic steroids; Z79.899 Other long term (current) drug therapy; Z87.891 Personal history of nicotine dependence
CPT/HCPCS: 71045; 80048; 83735; 84484; 84703; 85025; 93005; 99284; A4216

== ENCOUNTER → 2021-06-19 | Outpatient (CLI) | payer MEDICAID, SELFPAY ==
[2021-06-24 00:06] LABS: Chlamydia By Nucleic Acid AMP Negative (Negative)
[2021-06-24 00:41] LABS: Gonococcus By Nucleic Acid AMP Negative (Negative)
== END | disposition home or self-care (01) ==
LOC: LABSPEC 06-20 08:46
PROVIDERS: PCP Family Medicine; Visit Provider Obstetrics & Gynecology
DX: Z11.3 Encounter for screening for infections with a predominantly sexual mode of transmission (principal)
CPT/HCPCS: 87491; 87591

== ENCOUNTER 2021-08-15 09:36 | Emergency (ER) | payer MEDICAID, SELFPAY ==
[2021-08-15 09:37] VITALS: BP 127/83; PULSE 68; RESP 18; TEMP 36.6; O2SAT 98; BMI 41.3
[2021-08-15 09:39] VITALS: BP 135/91; PULSE 61; RESP 14; TEMP 36.6; O2SAT 98
[2021-08-15 09:47] VITALS: PULSE 61; RESP 14; O2SAT 98
--- NOTE | 2021-08-15 10:01 | EKG12_ITS ---
Test Reason : CP Blood Pressure : / mmHG Vent. Rate : 058 BPM Atrial Rate : 058 BPM P-R Int : 156 ms QRS Dur : 078 ms QT Int : 432 ms P-R-T Axes : 035 058 060 degrees QTc Int : 424 ms Sinus bradycardia Otherwise normal ECG Confirmed by NAN BAH, HENRY ([id number]), graphics editor SHERLY LEWIS ([id number]) on 08/15/2021 11:42:27 AM Referred By: TYLER/PAT Confirmed By:HENRY MONTANA MD
--- NOTE | 2021-08-15 10:12 | EDS_ITS ---
HPI History of Present Illness Chief Complaint: Chest Pain Informant: patient Narrative Narrative: 36-year-old female states that she is Covid positive. She notes she first got ill on the . She notes a variety of constitutional symptoms since. She notes that she is concerned she may have a UTI as she notes urinary frequency dysuria and hematuria. She also notes that she does not have regular periods but she is now having some vaginal bleeding. She states her heart feels cold. She states she continues to feel ill and fatigued. She notes intermittent confusion. [facility] Medical History (Updated 08/15/21 @ 11:[address] Anthony Estrella DO) Arthritis bunyan removal Carpal tunnel syndrome on both sides Environmental allergies Frequent headaches History of emotional problems Hypertension Home Medications cetirizine 10 mg PO DAILY 12/10/15 [History Last Taken 06/13/19] montelukast 10 mg PO DAILY 12/10/15 [History Last Taken 05/07/16 05:50] albuterol sulfate 2.5 mg INHALATION Q4HWA.RT PRN 04/30/16 [History Last Taken 05/07/16 05:00] sertraline 50 mg PO DAILY 08/21/18 [History Last Taken 06/13/19] albuterol sulfate 1 - 2 puff INHALATION Q4H PRN PRN 06/12/19 [History Last Taken 06/13/19] amitriptyline 10 mg PO QHS 06/12/19 [History Last Taken Unknown] cyclobenzaprine 10 mg PO QHS 06/12/19 [History Last Taken Unknown] mometasone-formoterol 2 puff IH BID 06/12/19 [History Last Taken Unknown] prednisone 5 mg PO DAILY 06/12/19 [History Last Taken 06/13/19] Allergy/AdvReac Type Severity Reaction Status Date / Time No Known Allergies Allergy Verified 08/15/21 09:39 Family History Grandmother Anxiety Arthritis Mother Anxiety Asthma Arthritis Depression (emotion) Father Hypertension Depression (emotion) Brother Depression (emotion) Suicidal intent Surgical History History of tonsillectomy and adenoidectomy Social History number of children: 3 current occupational status: unemployed Smoking Status: Former smoker alcohol intake: current alcohol intake frequency: 0-2 drinks per day Alcohol type: wine details: Social substance use type: does not use caffeine: Yes eating out: 4 or more times/week during the past year weight has: increased > 10 lbs what type of physical activity do you participate in: none ROS ROS ED Constitutional Constitutional ED: Reports fever(s) and sweats; Denies chills or weight loss Eyes Eyes: Denies change in vision or diplopia ENT ENT ED: Reports rhinorrhea; Denies ear pain or sore throat Cardiovascular Cardiovascular: Denies chest pain, orthopnea, palpitations or racing heartbeat Respiratory/Chest Respiratory/Chest: Reports cough, dyspnea and dyspnea on exertion; Denies orthopnea Gastrointestinal Gastrointestinal: Reports nausea; Denies abdominal pain, diarrhea or vomiting Genitourinary Genitourinary ED: Denies dysuria, hematuria or urinary frequency Musculoskeletal Musculoskeletal: Reports myalgias; Denies arthralgias Integumentary Denies abscess or rash Neurologic Neurologic: Reports headache(s) and other Details: Intermittent confusion ; Denies weakness Psychiatric Psychiatric: Denies anxiety, depression, suicidal ideation or suicidal thoughts Endocrine Endocrinology: Denies polydipsia, polyphagia or polyuria Allergic/Immunologic Allergic/Immunologic ED: Denies mouth swelling, tongue swelling or urticaria EXAM Physical Exam Const Vital Signs: 08/15/21 09:37 08/15/21 09:39 08/15/21 09:47 Temperature 98 F 98 F Temperature Source Temporal Temporal Pulse Rate 68 61 61 Respiratory Rate 18 14 14 Blood Pressure 127/83 H 135/91 H Blood Pressure Mean 97 105 Pulse Ox 98 98 98 Oxygen Delivery Method Room Air Room Air Room Air Positive well nourished and well developed General Appearance ED: well developed HEENT Reports normocephalic, head/scalp atraumatic, TM's clear and moist mucous membranes Negative for trauma Tympanic Membrane ED: Yes TM's clear Eyes PERRL and EOMs intact bilaterally Neck no lymphadenopathy, supple and no JVD Resp normal respiratory effort and clear to auscultation bilaterally Cardio regular rate, regular rhythm and no murmurs GI normal to inspection, nondistended, normoactive bowel sounds and non-tender Palpation: soft Back/Spine no CVA tenderness and normal ROM Extremity normal to inspection General Extremety ED: Negative for edema General Extremity: Negative for edema Neuro oriented x3 and CN's II-XII intact bilaterally Sensorium / Orientation: alert Motor Exam: strength 5/5 throughout Psych mental status grossly normal Mood & Affect: Negative for depressed or tearful Skin no rashes or lesions noted and no wounds MDM MDM MDM Narrative Medical decision making narrative: Interpretation of the chest x-ray is multifocal areas of pneumonitis most likely due to COVID-19 infection. These are mild in nature. Patient is not requiring any supplemental oxygen. Patient tells me she is already taking albuterol nebulizers and steroids. At this point I think we just need to let Covid run its course. I do not see an emergent reason to hospitalize her. As far as her blood in her urine she has 20-50 red blood cells 0 white cells 0-5 squamous cells 0 bacteria nitrate negative. Is also leukocyte Estrace negative. I do not know if this is cross-contamination because she is also complaining of vaginal bleeding. Due to the abnormal vaginal bleeding I would recommend that she follow-up with APPEALS OFFICER. Lab Data Attestation: I reviewed the patient's lab results. Labs: Laboratory Results - last 24 hr 08/15/21 10:30 Urine Color Yellow Urine Clarity Sl. Cloudy Urine pH 7.0 Ur Specific [place] 1.005 Urine Protein 15 H Urine Glucose (UA) Normal Urine Ketones Negative Urine Occult Blood 250 H Urine Nitrite Negative Urine Bilirubin Negative Urine Urobilinogen Normal Ur Leukocyte Esterase Negative Urine RBC 25-50 SEEN Urine WBC 0 SEEN Ur Squamous Epith Cells 0-5 SEEN Urine Bacteria 0 SEEN Urine Mucus 0 SEEN Radiography Diagnostic Testing: Clinical Impression(s) from Imaging Studies Chest X-Ray 08/15/21 10:22 IMPRESSION: Multifocal faint hazy opacities suggestive of atelectasis and infectious/inflammatory etiology and can be seen with atypical pneumonia such as with COVID pneumonia. Electronically Signed: Duong Johnson MD at 10:40 EST Tel , Service support , Discharge Plan Triage Chief Complaint: Chest Pain ED Provider: Anthony Estrella Dx/Rx/DC Orders Clinical Impression: Abnormal vaginal bleeding, COVID-19, Hematuria, Dysuria Prescriptions: No Action montelukast 10 MG tablet 10 mg PO DAILY RF: 0 cetirizine 1 MG/ML solution 10 mg PO DAILY RF: 0 albuterol sulfate 2.5 MG/3 ML solution for nebulization 2.5 mg INHALATION Q4HWA.RT PRN (Reason: Sob &/Or Wheezing) RF: 0 sertraline 50 MG tablet 50 mg PO DAILY RF: 0 cyclobenzaprine 10 MG tablet 10 mg PO QHS RF: 0 amitriptyline 10 MG tablet 10 mg PO QHS RF: 0 albuterol sulfate 1 INHALER inhaler 1 - 2 puff inhalation Q4H PRN PRN (Reason: Sob &/Or Wheezing) RF: 0 mometasone-formoterol 13 GM HFA aerosol inhaler 2 puff IH BID RF: 0 prednisone 20 MG tablet 5 mg PO DAILY RF: 0 Primary Care Provider: Oswaldo Ramsey Referrals: Oswaldo Ramsey MD [Primary Care Provider] - As soon as possible Activity Restrictions/Additional Instructions: I would recommend following up with your flotation tender helper and your primary care doctor Disposition Disposition: Home, Self Care
--- NOTE | 2021-08-15 10:22 | RAD_ITS ---
INDICATION: cough covid 19 EXAMINATION/TECHNIQUE: X-RAY - XR Chest 1 View COMPARISON: Chest radiograph from 03/01/2021. FINDINGS: LINES/DEVICES: None. Cardiomediastinal silhouette is within normal limits. Bilateral faint hazy opacities predominantly in a perihilar and peripheral distribution. No sizable pleural effusion or pneumothorax. Osseous structures are grossly intact. RAD/Chest 1 View (Portable) IMPRESSION: Multifocal faint hazy opacities suggestive of atelectasis and infectious/inflammatory etiology and can be seen with atypical pneumonia such as with COVID pneumonia. Electronically Signed: Duong Johnson MD at 10:40 EST Tel , Service support ,
[2021-08-15 10:33] LABS: Bacteria 0 SEEN /hpf (None Seen); Mucous, Urine 0 SEEN /hpf (<or=2+); White Blood Cells 0 SEEN /hpf (0-5)
[2021-08-15 10:35] LABS: Color, Urine Yellow (Yellow); Glucose, Dipstick Normal (Normal); Ketone-Dipstick Negative (Negative); Leukocyte Esterase-Dipstick Negative /ul (Negative); Nitrite-Dipstick Negative (Negative); Occult Blood-Urine 250 /ul (Negative); Protein-Dipstick 15 mg/dl (Negative); Specific Gravity, Urine 1.005 (1.002-1.030); Urine Bilirubin Dipstick Negative (Negative); Urine Clarity Sl. Cloudy (Clear); Urine Urobilinogen Normal (Normal)
[2021-08-15 10:43] LABS: Red Blood Cells-Urine 25-50 SEEN /hpf (0-5); Squamous Epithelial Cells - UA 0-5 SEEN /hpf (5-10)
[2021-08-15 11:54] VITALS: BP 128/82
== END 2021-08-15 11:55 | disposition home or self-care (01) ==
PROVIDERS: Emergency Provider Emergency Medicine; PCP Family Medicine
DX: U07.1 COVID-19 (principal); J12.82 Pneumonia due to coronavirus disease 2019; N93.9 Abnormal uterine and vaginal bleeding, unspecified; R31.9 Hematuria, unspecified; R30.0 Dysuria; R41.0 Disorientation, unspecified; I10 Essential (primary) hypertension; M19.90 Unspecified osteoarthritis, unspecified site; Z79.52 Long term (current) use of systemic steroids; Z79.51 Long term (current) use of inhaled steroids; Z79.899 Other long term (current) drug therapy; Z87.891 Personal history of nicotine dependence
CPT/HCPCS: 71045; 81001; 93005; 99284

== ENCOUNTER 2024-01-23 15:11 | Emergency (ER) | payer MEDICAID, SELFPAY ==
[2024-01-23 15:11] VITALS: BP 130/84; PULSE 75; RESP 18; TEMP 36.2; O2SAT 94; BMI 35.2
--- NOTE | 2024-01-23 16:07 | EDS_ITS ---
HPI History of Present Illness HPI Narrative: Patient presents with right shoulder injury that occurred yesterday. Patient states she [place]. Patient states she landed on her right shoulder. Patient states her pain is worse with abduction. Patient states it is better with heat and ice. Patient describes the pain as a constant dull ache but is sharp with any attempts at abduction. Patient admits to some paresthesias that radiate down her right upper arm to her elbow. Patient denies any weakness. Patient states her pain does radiate up into the right side of her neck. Patient denies any head injury or loss of consciousness. Chief Complaint: Upper Extremity Injury Informant: patient Occured/Mechanism Mechanism/Context: Yes fall Onset/Context/Timing Onset: Yesterday Context: Sudden Onset Timing: Continuous Quality of Pain: Sharp and Dull Location: Right shoulder Worsened by: Abduction Relieved by: Heat, ice Associated Symptoms Associated Symptoms: Positive for Parasthesia; Negative for Weakness or Loss of Funtion [facility] Medical History (Updated 01/23/24 @ 16:[address] Tate De La Torre, ) Arthritis bunyan removal Carpal tunnel syndrome on both sides Environmental allergies Frequent headaches History of emotional problems Hypertension Home Medications cetirizine 1 mg/mL oral solution 10 mg PO DAILY 12/10/15 [History Last Taken 06/13/19] montelukast 10 mg tablet 10 mg PO DAILY 12/10/15 [History Last Taken 05/07/16 05:50] albuterol sulfate 2.5 mg/3 mL (0.083 %) solution for nebulization 2.5 mg inhalation Q4HWA.RT PRN Sob &/Or Wheezing 04/30/16 [History Last Taken 05/07/16 05:00] albuterol sulfate 90 mcg/actuation aerosol inhaler 1 - 2 puff inhalation Q4H PRN PRN Sob &/Or Wheezing 06/12/19 [History Last Taken 06/13/19] mometasone-formoterol HFA 200 mcg-5 mcg/actuation aerosol inhaler 2 puff IH BID 06/12/19 [History Last Taken Unknown] baclofen 20 mg tablet 20 mg PO TID 02/13/22 [History Last Taken Unknown] biotin 10,000 mcg disintegrating tablet 10,000 mcg PO DAILY 02/13/22 [History Last Taken Unknown] gabapentin 100 mg capsule 100 mg PO TID 02/13/22 [History Last Taken Unknown] magnesium oxide mg PO 02/13/22 [History Last Taken Unknown] omeprazole 40 mg capsule,delayed release 40 mg PO DAILY 02/13/22 [History Last Taken Unknown] oxybutynin chloride 5 mg tablet 5 mg PO DAILY 02/13/22 [History Last Taken Unknown] ropinirole 1 mg tablet 1 mg PO QHS 02/13/22 [History Last Taken Unknown] sertraline 200 mg capsule 200 mg PO DAILY 02/13/22 [History Last Taken Unknown] tizanidine 4 mg capsule 4 mg PO QHS PRN 02/13/22 [History Last Taken Unknown] topiramate 100 mg capsule sprinkle,extended release 24 hr 100 mg PO BID 02/13/22 [History Last Taken Unknown] Allergy/AdvReac Type Severity Reaction Status Date / Time No Known Allergies Allergy Verified 01/23/24 15:13 Family History Grandmother Anxiety Arthritis Mother Anxiety Asthma Arthritis Depression (emotion) Father Hypertension Depression (emotion) Brother Depression (emotion) Suicidal intent Surgical History (Updated 01/23/24 @ 16:[address] Tate De La Torre DO) History of bunionectomy History of tonsillectomy and adenoidectomy Hx of section Hx of inguinal herniorrhaphy Social History number of children: 3 current occupational status: unemployed Smoking Status: Former smoker alcohol intake: current alcohol intake frequency: 0-2 drinks per day Alcohol type: wine details: Social substance use type: does not use caffeine: Yes eating out: 4 or more times/week during the past year weight has: increased > 10 lbs what type of physical activity do you participate in: none ROS ROS ED Constitutional Constitutional ED: Denies chills or fever(s) Eyes Eyes: Denies blurry vision or change in vision ENT ENT ED: Denies rhinorrhea or sore throat Cardiovascular Cardiovascular: Denies chest pain or palpitations Respiratory/Chest Respiratory/Chest: Denies cough or dyspnea Gastrointestinal Gastrointestinal: Denies nausea or vomiting Genitourinary Genitourinary ED: Denies dysuria or hematuria Musculoskeletal Musculoskeletal: Reports neck pain; Denies back pain Integumentary Denies abscess or rash Neurologic Neurologic: Denies headache(s) or weakness Allergic/Immunologic Allergic/Immunologic ED: Denies mouth swelling or urticaria EXAM Physical Exam Const Vital Signs: 01/23/24 15:11 Temperature 97.1 F L Temperature Source Temporal Pulse Rate 75 Respiratory Rate 18 Blood Pressure 130/84 H Blood Pressure Mean 99 Pulse Ox 94 Oxygen Delivery Method Room Air Positive well nourished and well developed General Appearance ED: well developed and NAD HEENT Reports moist mucous membranes Neck full ROM Neck Narrative: There is tenderness over the right cervical paraspinal muscles. There is no midline tenderness but there is no bony crepitance or step-off noted. Range of motion was limited in right rotation, right sidebending, flexion, and extension secondary to pain. General: tenderness Extremity Extremity Narrative: There is tenderness over the right shoulder mainly over the acromioclavicular joint. There is no edema or ecchymosis. There is no obvious deformity noted. Range of motion was limited in all motions of the right shoulder secondary to pain. Strength is 5/5 in the radial, median, and ulnar areas. Sensation was intact to light touch in the radial, median, ulnar, and axillary areas. Radial pulses are equal bilaterally. Psych mental status grossly normal MDM MDM MDM Narrative Medical decision making narrative: Differential diagnosis includes acromioclavicular separation, occult fracture, and degenerative arthritis. X-rays of the right shoulder will be obtained to assess for occult fracture and acromioclavicular separation. Radiography Diagnostic Testing: X-rays of the right shoulder were obtained. There are 4 views. On my independent interpretation, there is no acute fracture or dislocation. There is no degenerative changes noted. There is no separation of the acromioclavicular joint. Radiologist also interpreted the x-rays and agrees. Treatment and Re-Evaluation Narrative: Patient was given a dose of Toradol here. Patient was advised of her findings. Patient was instructed use ice to the area. Patient was instructed to start with range of motion exercises. Patient was instructed to take Tylenol or ibuprofen as needed for pain. Patient was instructed to follow-up with her primary care physician in 5 to 7 days. Patient understood and was agreeable with the plan. All questions were answered. Discharge Plan Triage Chief Complaint: Upper Extremity Injury ED Provider: Tate De La Torre Dx/Rx/DC Orders Clinical Impression: Sprain of right shoulder, Obesity (BMI 30-39.9) Instructions: ED Shoulder Sprain Prescriptions: No Action baclofen 20 mg tablet 20 mg PO TID oxybutynin chloride 5 mg tablet 5 mg PO DAILY topiramate 100 mg capsule,sprinkle,ER 24hr 100 mg PO BID omeprazole 40 mg capsule,delayed release(DR/EC) 40 mg PO DAILY gabapentin 100 mg capsule 100 mg PO TID tizanidine 4 mg capsule 4 mg PO QHS PRN sertraline 200 mg capsule 200 mg PO DAILY ropinirole 1 mg tablet 1 mg PO QHS Rx Instructions: administer 1-3 hours before bedtime biotin 10,000 mcg tablet,disintegrating 10,000 mcg PO DAILY magnesium oxide 200 mg magnesium tablet,chewable PO montelukast 10 MG tablet 10 mg PO DAILY cetirizine 1 MG/ML solution 10 mg PO DAILY albuterol sulfate 2.5 MG/3 ML solution for nebulization 2.5 mg INHALATION Q4HWA.RT PRN (Reason: Sob &/Or Wheezing) albuterol sulfate 1 INHALER inhaler 1 - 2 puff inhalation Q4H PRN PRN (Reason: Sob &/Or Wheezing) mometasone-formoterol 13 GM HFA aerosol inhaler 2 puff IH BID Primary Care Provider: Oswaldo Ramsey Referrals: Oswaldo Ramsey MD [Primary Care Provider] - 5-7 Days Disposition Disposition: Home, Self Care
--- NOTE | 2024-01-23 16:17 | RAD_ITS ---
STUDY: X-RAY - RIGHT SHOULDER REASON FOR EXAM: Female, 38 years old. Injury/Pain TECHNIQUE: 4 view(s) of the shoulder. COMPARISON: None. FINDINGS: Normal glenohumeral articulation. Normal acromioclavicular joint. Normal acromion. Normal humeral head and visualized proximal humerus. The soft tissue structures are unremarkable. Normal visualized pulmonary apex. RAD/Shoulder min 2 Views IMPRESSION: Normal x-ray examination of the shoulder. Electronically Signed: Norm Sanford MD at 16:36 EDT ,
[2024-01-23] MEDS: Ketorolac 60 MG/2 ML Vial IM (16:34)
== END 2024-01-23 16:51 | disposition home or self-care (01) ==
PROVIDERS: Emergency Provider Emergency Medicine; PCP Family Medicine; Visit Provider Emergency Medicine
DX: S43.401A Unspecified sprain of right shoulder joint, initial encounter (principal); W09.0XXA Fall on or from playground slide, initial encounter; Y92.838 Other recreation area as the place of occurrence of the external cause; I10 Essential (primary) hypertension; E66.9 Obesity, unspecified; Z79.899 Other long term (current) drug therapy; Z87.891 Personal history of nicotine dependence
CPT/HCPCS: 73030; 96372; 99282